=== PATIENT | female | born 1955 | race Caucasian/White ===

== ENCOUNTER 2016-10-24 09:39 | Emergency (ER) | payer OTHER ==
[~2016-10-24 09:39] MED LIST: ALUMSUS2 PO; ARTISOL OPB; ATOR-24 PO; BUPR-79 PO; CLC100 PO; CMD75 PO; ERGO1CAP41 PO; LORA-741 PO; LOSA1TAB38 PO; MAGN1TAB41 PO; METF750T PO; METH500T PO; NVLGI7030 SC; ONDA4TAB65 PO; OXYC5TAB PO; POLY335019 PO; PRLSR20 PO; SITA100T3 PO; TRAM-10 PO; TRAZ1TAB16 PO
[2016-10-24 09:46] VITALS: TEMP 37.2; Ht 160 cm
[2016-10-24] MEDS ORDERED: WARF5TAB7 PO (10:07)
[2016-10-24] MEDS ORDERED: WARF2.5T8 PO (10:07)
[2016-10-24] MEDS ORDERED: OXYC-57 PO (10:07)
[2016-10-24] MEDS ORDERED: BUPR-83 PO (10:08)
[2016-10-24] MEDS ORDERED: OXYCODONE HCL IR 5 MG TAB (IMMEDIATE RELEASE) PO STA (10:18)
--- NOTE | 2016-10-24 11:12 | DIAGNOSTIC IMAGING REPORT ---
RIGHT FEMUR 2 VIEWS ROUTINE, RIGHT KNEE 1 OR 2 VIEWS ROUTINE, RIGHT TIBIA/FIBULA 2 VIEWS ROUTINE CLINICAL HISTORY: RIGHT, FALL, right lower extremity pain. COMPARISON STUDY: Right femur, right knee, right tib-fib 01/11/2014. FINDINGS: There is a right total hip arthroplasty. The hardware appears intact. The bones are osteopenic. No acute fracture or dislocation. Old, healed fracture within the distal shaft of the right femur. Small knee effusion. This appears to represent a lipohemarthrosis on the right tib-fib lateral view. Vascular calcifications. There are also old, healed fractures within the proximal tibia and proximal fibula. There are cortical plates and screws transfixing the proximal tibial fracture. The hardware appears intact. Plantar and posterior calcaneal spurs. The distal fibula and tibia appear intact. IMPRESSION: 1. There appears to be a small lipohemarthrosis within the right knee. This raises the possibility of an occult right knee fracture. However, no acute fractures are clearly identified. Right knee CT should be considered for further evaluation 2. Old posttraumatic and postoperative changes as described above. Electronically signed by: Manuel Ling M.D. 10/24/2016 11:11 AM Dictated Date/Time: 10/24/2016 11:04 AM
[2016-10-24] MEDS ORDERED: MoRPHine SULFATE 10 MG/ML CARP/VIAL IM STA (12:08)
[2016-10-24] MEDS ORDERED: ONDANSETRON 4MG OD TAB PO ONE (12:15)
--- NOTE | 2016-10-24 12:48 | DIAGNOSTIC IMAGING REPORT ---
RIGHT KNEE CT CT DOSE: 321.31 mGy.cm HISTORY: Right knee pain. Fall. TECHNIQUE: Multiaxial CT images of the right knee were performed and reformatted in the sagittal and coronal plane without the use of contrast. COMPARISON: Right knee 10/24/2016. FINDINGS: There is confirmation of the small lipohemarthrosis within the knee. However, there is no acute fracture or dislocation identified. Old, healed distal femur, proximal tibia, and proximal fibular fractures. There are cortical plates and screws within the proximal tibia. The hardware appears intact. IMPRESSION: Small lipohemarthrosis within the right knee. This is consistent with an occult fracture. No definite fracture identified at this time. Electronically signed by: Manuel Ling M.D. 10/24/2016 12:47 PM Dictated Date/Time: 10/24/2016 12:39 PM
--- NOTE | 2016-10-24 13:18 | EMERGENCY ROOM VISIT NOTE ---
ED Visit Note First contact with patient: 10:04 I have personally seen and evaluated the patient with the PA. I agree with the diagnosis and management decisions and have been personally involved in the case. Please see Maria Guadalupe Lyon PA-C's notes for further details of the history , physical and visit.
[2016-10-24] MEDS ORDERED: OXYC1TAB3 PO (14:02)
--- NOTE | 2016-10-24 14:07 | EMERGENCY ROOM VISIT NOTE ---
ED Visit Note First contact with patient: 10:04 CHIEF COMPLAINT: Right leg injury this morning HISTORY OF PRESENT ILLNESS: Patient is a 61-year-old white female who presents to emergency department for evaluation of right leg pain, focused around the right knee. She reports an extensive history of surgeries on this leg including right total hip arthroplasty and ORIF of a right tibial plateau fracture. She does also have a history of DVT and is chronically anticoagulated with Coumadin. Patient states that she slipped on ice around 6: 00 this morning, roughly 4 hours ago. She states the right leg twisted and she landed on it awkwardly. She cannot completely describe the mechanism of injury. She does report some chronic decreased range of motion in the right knee due to her surgery. She does also report some neuropathy in the right lower leg due to the surgical procedures. She did not note a lot of discomfort initially, was able to walk and bear weight on the right leg, and actually drove herself to work. When trying to get out of the vehicle at work, she noted increasing pain. She complains of pain in the medial and posterior aspect of the right knee. She rates her discomfort an 8/10. She did not take any medication for discomfort. She denies any other injuries related to the fall. REVIEW OF SYSTEMS: Review of systems as per HPI. All other systems reviewed were negative. At least 6 systems reviewed. PMH: Electronic medical records are reviewed and summarized as above/below. See Problem List. SOCIAL HISTORY: Patient lives at home. Employed. Nonsmoker. PHYSICAL EXAM: Vital Signs: Reviewed Nurse's notes. MENTAL STATUS: Pleasant, well-appearing 61-year-old white female who is awake and alert and in no acute distress. HEART: Regular rate and rhythm. LUNGS: Clear to auscultation. MUSCULOSKELETAL: Examination of the right lower extremity notes multiple well- healed surgical scars. There is no obvious deformity. She has slight swelling noted at the knee and a mild to moderate knee joint effusion. She does not have any tenderness to palpation over the right greater trochanter or in the right groin. She has minimal discomfort in the distal third of the femoral shaft. She does not have any pain with log roll or internal and external rotation of the right hip. She has tenderness to palpation over the medial joint line, has a diminished range of motion, prefers to rest partially flexed. She does not have any gross ligamentous instability. Calf is soft and nontender. She has palpation over the proximal tibial spine. No pain over the medial or the lateral malleolus. Distal pulses are easily palpable. Slight diminished sensation to light touch grossly over the entire right lower leg. EMERGENCY DEPARTMENT COURSE: Patient was seen and evaluated as above. She was initially medicated with oxycodone 10 mg orally but this gave her little relief. She was given Zofran 4 mg ODT and morphine 8 mg IM. X-rays of the right femur, right tib-fib and right knee were obtained. Findings are noted below. Due to be hemarthrosis noted on the knee x-ray, CT scan was obtained again, hemarthrosis was noted, no obvious displaced fracture, but concern for occult fracture was again noted. The patient was wrapped with an vamsi wrap, placed in a knee immobilizer and instructed on a nonweight bearing gait using a walker. Patient requested [facility] and I did discuss the patient with them via telephone. They were able to review the x-rays in their office, and agreed with outpatient follow-up. The patient was given oxycodone for pain. She does have tramadol at home, but has not used this in some time. She was advised not to take the tramadol while using the oxycodone. Differential diagnoses entertained included fracture, dislocation, hardware compromise including fracture or loosening, periprosthetic fracture, among others. Patient was reviewed with attending physician. RIGHT FEMUR 2 VIEWS ROUTINE, RIGHT KNEE 1 OR 2 VIEWS ROUTINE, RIGHT TIBIA/FIBULA 2 VIEWS ROUTINE CLINICAL HISTORY: RIGHT, FALL, right lower extremity pain. COMPARISON STUDY: Right femur, right knee, right tib-fib 01/11/2014. FINDINGS: There is a right total hip arthroplasty. The hardware appears intact. The bones are osteopenic. No acute fracture or dislocation. Old, healed fracture within the distal shaft of the right femur. Small knee effusion. This appears to represent a lipohemarthrosis on the right tib-fib lateral view. Vascular calcifications. There are also old, healed fractures within the proximal tibia and proximal fibula. There are cortical plates and screws transfixing the proximal tibial fracture. The hardware appears intact. Plantar and posterior calcaneal spurs. The distal fibula and tibia appear intact. IMPRESSION: 1. There appears to be a small lipohemarthrosis within the right knee. This raises the possibility of an occult right knee fracture. However, no acute fractures are clearly identified. Right knee CT should be considered for further evaluation 2. Old posttraumatic and postoperative changes as described above. Problem List Medical Problems: (1) Anxiety Status: Chronic (2) Bilateral pulmonary embolism Status: Resolved (3) Depression Status: Chronic (4) Diabetes Status: Chronic (5) Hyperlipidemia Status: Chronic (6) Hypertension Status: Chronic (7) Ovarian cancer Status: Chronic (8) UTI (urinary tract infection) Status: Chronic Surgical Problems: (1) H/O total hip arthroplasty Status: Resolved (2) History of appendectomy Status: Resolved (3) History of cholecystectomy Status: Resolved (4) History of hysterectomy with oophorectomy Status: Resolved (5) Left femur ORIF Status: Resolved Current/Historical Medications Scheduled Atorvastatin (Lipitor), 40 MG PO DAILY Bupropion (Wellbutrin), 100 MG PO BID Ergocalciferol (Vitamin D 64414 Unit), 1 CAP PO WK Insulin Aspart 70/30 (Novolog Mix 70/30), 50 UNITS SC QAM Insulin Aspart 70/30 (Novolog Mix 70/30), 40 UNITS SC QPM Losartan Potassium (Cozaar), 100 MG PO DAILY Magnesium Oxide (Magnesium), 400 MG PO DAILY Metformin Hcl (Glucophage Er), 750 MG PO DAILY Omeprazole (Prilosec), 20 MG PO DAILY Trazodone Hcl (Desyrel), 150 MG PO HS Warfarin Sod (Jantoven), 2.5 MG PO 3XWK Warfarin Sod (Jantoven), 5 MG PO 4XWK Scheduled PRN Aluminum/Magnesium/Simeth (Maalox Max Susp), 15 ML PO Q4H PRN for Indigestion Artificial Tear Solution (Tears Naturale), 1 DROP OPB Q2H PRN for EYE DRYNESS Docusate Sodium (Docusate Sodium), 100 MG PO BID PRN for Constipation Lorazepam (Ativan), 0.5 MG PO TID PRN for Anxiety/Agitation Methocarbamol (Robaxin), 500 MG PO TID PRN for Muscle Spasms Ondansetron Hcl (Zofran), 4 MG PO Q6H PRN for Nausea Oxycodone Immediate Rel Tab (Roxicodone Ir), 1-2 TAB PO Q4H PRN for Severe Pain Oxycodone/Acetaminophen 5MG/325MG (Percocet 5MG/325MG), 1 TABLET PO Q4H PRN for Pain Polyethylene Glycol 3350 (Miralax), 17 GM PO DAILY PRN for Constipation Tramadol (Ultram), 50 MG PO Q6H PRN for Pain Allergies Coded Allergies: Clarithromycin (Verified Allergy, Intermediate, GI SYMPTOMS, 10/24/16) Iodinated Diagnostic Agents (Unverified Adverse Reaction, Unknown, CONTRAST-"COULDN'T FUNCTION", 10/24/16) Vital Signs Date Time Temp Pulse Resp B/P Pulse Ox O2 Delivery O2 Flow Rate FiO2 10/24/16 14:17 108 20 137/79 92 10/24/16 13:43 108 20 150/85 92 10/24/16 11:38 102 20 149/75 95 Room Air 10/24/16 09:46 37.2 102 20 171/91 95 Room Air Medications Administered Medications (Trade) Dose Ordered Sig/Michael Route Start Time Stop Time Status Last Admin Dose Admin Oxycodone HCl (Roxicodone Immediate Rel Tab) 10 mg NOW STAT PO 10/24/16 10:18 10/24/16 10:21 DC 10/24/16 10:33 10 MG Morphine Sulfate (MoRPHine SULFATE INJ) 8 mg NOW STAT IM 10/24/16 12:08 10/24/16 12:09 DC 10/24/16 12:53 8 MG Ondansetron HCl (Zofran Odt) 4 mg ONE ONCE PO 10/24/16 12:15 10/24/16 12:16 DC 10/24/16 12:40 4 MG Departure Information Impression Primary Impression: Effusion of right knee joint Additional Impression: Fall Prescriptions Oxycodone Immediate Rel Tab (ROXICODONE IR) 5 Mg Tab 1-2 TAB PO Q4H Y for Severe Pain, #20 TAB For Initial Treatment Prov: Anai Lyon PA 10/24/16 Referrals Shira Ray D.O. (PCP) Jose Roberto Lagos M.D. Patient Instructions My [facility] Additional Instructions DO NOT drive, drink alcohol, operate machinery, or perform dangerous activities today. You were given medications in the ER that can affect your ability to safely function or operate a vehicle. Oxycodone (OxyIR) 5mg: Take 1-2 pills every four hours for breakthrough pain. Avoid alcohol, operating machinery or dangerous equipment, working on ladders or roofs, DRIVING, or situations where being under the influence may be dangerous. It is recommended to use an kpud-gon-jigurhm stool softener such as Colace, 100mg twice daily while taking this medication to avoid constipation. Ibuprofen(Motrin, Advil) may be used for fever or pain. Use 600mg every six hours as needed. Take with food. Avoid using more than 2400mg in a 24 hour period. Do not use 2400mg per day for more than three consecutive days without physician direction. Prolonged inappropriate use can lead to stomach upset or ulcers. This medication can be taken if you need to drive, work, or perform activities which may be dangerous when taking narcotic pain medication. (AND/OR) Acetaminophen(Tylenol) may be used for fever or pain. Use 1000mg every six hours as needed. Avoid using more than 3000mg in a 24 hour period. This medication can be taken if you need to drive, work, or perform activities which may be dangerous when taking narcotic pain medication. Ice compresses for 20 minutes at a time four times daily for 2-3 days. Use the knee immobilizer and walker as instructed with no weight on the right lower extremity. Rest and elevate your injury. Continue current medications. Return to the ER immediately for any numbness, tingling, severe pain, extreme swelling in the extremity or as needed. Call [facility] this afternoon to arrange follow up for your injury on Thursday. Problem Qualifiers Additional Impression: Fall Encounter type: initial encounter Qualified Codes: W19.XXXA - Unspecified fall, initial encounter
[2016-10-24 14:17] VITALS: BP 137/79; PULSE 108; O2SAT 92
[2017-04-30] MEDS ORDERED: PANT40TA PO (13:20)
[2017-04-30] MEDS ORDERED: PLV75 PO (13:20)
[2017-04-30] MEDS ORDERED: LPR25 PO (13:20)
== END 2016-10-24 14:20 | disposition home or self-care (01) ==
LOC: C.EDB 09:42 → C.EDC 14:20
DX: M25.461 Effusion, right knee (principal); W00.0XXA Fall on same level due to ice and snow, initial encounter; Z96.641 Presence of right artificial hip joint; F41.9 Anxiety disorder, unspecified; F32.9 Major depressive disorder, single episode, unspecified; E11.9 Type 2 diabetes mellitus without complications; E78.5 Hyperlipidemia, unspecified; I10 Essential (primary) hypertension; Z85.43 Personal history of malignant neoplasm of ovary; Z87.440 Personal history of urinary (tract) infections; Z86.718 Personal history of other venous thrombosis and embolism; Z79.4 Long term (current) use of insulin; Z79.01 Long term (current) use of anticoagulants; Z79.899 Other long term (current) drug therapy

== ENCOUNTER → 2017-02-26 | Outpatient (CLI) | payer OTHER ==
[~2017-02-26] MED LIST changes: +AMINTAB13 PO; +ASPI81TA28 PO; +BUPR-83 PO; +CLOP1TAB5 PO; -CMD75 PO; +CYAN500T SL; +FLUT0.15 NAE; +GLYB5TAB8 PO; +IMDSR30 PO; +ISOS30TA3 PO; +LPR25 PO; +METF1TAB85 PO; +METO25TA56 PO; +OXYC-57 PO; +OXYC1TAB3 PO; -OXYC5TAB PO; +PANT40TA PO; +PLV75 PO; +PSYL43PO PO; +SENN-65 PO; -SITA100T3 PO; +WARF2.5T8 PO; +WARF5TAB7 PO
--- NOTE | 2017-02-26 13:41 | DIAGNOSTIC IMAGING REPORT ---
RIGHT VENOUS DOPP LOWER EXT UNILAT CLINICAL HISTORY: 61 years-old Female with acute right leg pain and swelling. History of right deep venous thrombosis 11/13/2015. COMPARISON: Doppler 11/13/2015 TECHNIQUE: Multiple real-time sonographic images of the deep venous structures of the right lower extremity were obtained assessing garibay scale, color Doppler flow and spectral waveform appearance. FINDINGS: RIGHT LOWER EXTREMITY: The common femoral vein is completely compressible. There is some echogenic intraluminal material which is presumed fibrin stranding within the femoral and popliteal veins which appears to be nonocclusive. Spontaneous and phasic color and spectral flow noted within these vessels. Echogenic thrombus within the posterior tibial, peroneal and anterior tibial veins also noted which appears to be partially occlusive. IMPRESSION: 1. Chronic changes of fibrin stranding within the femoral and popliteal veins. 2. Partially occlusive also likely chronic thrombus involves the calf veins. The above report was generated using voice recognition software. It may contain grammatical, syntax or spelling errors. Electronically signed by: Barry Florez M.D. 02/26/2017 1:40 PM Dictated Date/Time: 02/26/2017 1:33 PM
== END | disposition home or self-care (01) ==
LOC: C.ULTR 13:05
PROVIDERS: ATTEND Physician Assistant Surgical
DX: M79.89 Other specified soft tissue disorders (principal); M79.661 Pain in right lower leg

== ENCOUNTER 2017-04-29 06:36 | Observation (INO) | payer OTHER ==
[2017-04-29] VITALS (11 sets, daily range): BP systolic 131–168; BP diastolic 76–97; PULSE 70–79; TEMP 36.6–37.1; O2SAT 90–96; BMI 32.0; BMI 33.6
[~2017-04-29] VITALS: Ht 160 cm; Wt 84.1 kg
[~2017-04-29 06:36] MED LIST changes: -AMINTAB13 PO; -ASPI81TA28 PO; -BUPR-79 PO; -CLOP1TAB5 PO; -CYAN500T SL; -FLUT0.15 NAE; -GLYB5TAB8 PO; -IMDSR30 PO; -ISOS30TA3 PO; -LPR25 PO; -METF1TAB85 PO; -METO25TA56 PO; -PANT40TA PO; -PLV75 PO; -PSYL43PO PO; -SENN-65 PO
[2017-04-29] MEDS ORDERED: ASPI81TA28 PO (07:32)
[2017-04-29] MEDS ORDERED: AMINTAB13 PO (07:34)
[2017-04-29] MEDS ORDERED: METF1TAB85 PO (07:36)
[2017-04-29] MEDS ORDERED: BUPR-79 PO (07:38)
[2017-04-29] MEDS ORDERED: PSYL43PO PO (07:39)
[2017-04-29] MEDS ORDERED: GLYB5TAB8 PO (07:48)
[2017-04-29] MEDS ORDERED: CYAN500T SL (07:49)
[2017-04-29] MEDS ORDERED: FLUT0.15 NAE (07:50)
[2017-04-29] MEDS ORDERED: SENN-65 PO (07:52)
[2017-04-29] MEDS ORDERED: HEPARIN SOD (PORCINE) 1000 UNIT/ML 10 ML VIAL ONE (08:20)
[2017-04-29] MEDS ORDERED: NiCARDipine HCL INJ 2.5 MG/ML 10 ML AMP ONE (08:20)
[2017-04-29] MEDS ORDERED: FENTANYL CITRATE INJ 50 MCG/1 ML 2 ML VIAL ONE (08:21)
[2017-04-29] MEDS ORDERED: MIDAZOLAM HCL 1 MG/ML 2ML VIAL ONE (08:21)
[2017-04-29] MEDS ORDERED: NITROGLYCERIN/D5W 100MCG/ML 20ML SYR ONE (08:21)
[2017-04-29] MEDS ORDERED: DiphenhydrAMINE HCL 50 MG/ML VIAL ONE (08:46)
[2017-04-29] MEDS ORDERED: RANITIDINE HCL 25 MG/ML INJ ONE (08:46)
--- NOTE | 2017-04-29 08:48 | History & Physical Bridge Note ---
H&P Re-Evaluation Bridge Note: I have examined the patient, reviewed the History & Physical and in the interval since the performance of the History & Physical I have noted the following changes of clinical significance: No changes noted. IMPRESSION: 1. 61-year-old female with exertional angina class 2-3 and abnormal dobutamine stress echo suggesting apical septal and apical ischemia. 2. H/o Bilateral pulmonary embolus and recurrent unproked DVT on chronic oral anticoagulation treatment. INR 1.7 today. 3. Hypertension 4. Dyslipidemia - controlled; tolerating atorvastatin 5. Longstanding type 2 diabetes 6. MTHFR mutation and elevated homocysteine Plan: Left heart catheterization with coronary angiography. Coumadin will be held the day prior to the procedure with plans for radial approach. She is a bare- metal stent candidate due to need for chronic anticoagulation.
--- NOTE | 2017-04-29 08:49 | Procedure Note ---
Pre-Mod Sedation Assessment General Date of Moderate Sedation: Apr 29, 2017. Vital Signs: Vital Signs Past 12 Hours Date Time Temp Pulse Resp B/P (MAP) Pulse Ox O2 Delivery O2 Flow Rate FiO2 04/29/17 07:20 36.6 75 16 157/91 94 Room Air Review Cardiovascular: regular rate, rhythm, no edema, no murmur Abdomen: normal bowel sounds, non tender Lungs: chest non-tender, lungs clear, normal breath sounds Pre-Sedation Airway Assessment Oral Cavity: WNL Short Thick Neck: No Hx of Sleep Apnea: Yes Smoking Status: Never Smoker Mallampati Classification: Class III ASA Classification: Class III Procedure Planning Contraindications-for Mod Sed: None Yes Notes The planned sedation has been discussed with the patient and consent obtained. I have identified the patient, determined the appropriateness of sedation and have assessed the patient immediately prior to the procedure. All medicine(s) and interventions are by my order.
--- NOTE | 2017-04-29 09:30 | Procedure Note ---
Post-Mod Sedation Assessment General Date of Moderate Sedation Apr 29, 2017. Vital Signs: Vital Signs Past 12 Hours Date Time Temp Pulse Resp B/P (MAP) Pulse Ox O2 Delivery O2 Flow Rate FiO2 04/29/17 07:20 36.6 75 16 157/91 94 Room Air Review - Discharge Criteria Vital Signs Stable: Yes Alert/Oriented/Conversant: Yes Returned to Baseline Mental St: N/A (remained in lab associate for PCI) Nausea Absent/Minimal: Yes Pain/Discomfort/Absent/Minimal: Yes Normal/Baseline Respirations: Yes Active Bleeding?: No Pt Received D/C Instructions: N/A Prescriptions Given: None Specific Proced. D/C Criteria Distal Pulses Present (Cardiac: Yes Groin site assessed-Card Cath: N/A Voided Prior To Discharge: N/A Discharged Patients Adult Escort/Transportation: N/A
[2017-04-29] MEDS ORDERED: EPTIFIBATIDE 0.75 MG/ML 75MG VIAL IV ONE (09:34)
[2017-04-29] MEDS ORDERED: EPTIFIBATIDE 2 MG/ML 10 ML VIAL IV ONE (09:34)
[2017-04-29] MEDS ORDERED: EPTIFIBATIDE INJ 75 MG PREMIXED IV SCH (09:34)
--- NOTE | 2017-04-29 09:46 | Cardiac Catheterization ---
Procedure Note Procedure Date Apr 29, 2017. Pre-Procedure Diagnosis Angina, Positive Stress Test AUC Score 8 Post-Procedure Diagnosis Severe CAD Procedure(s) Performed Coronary Angiography, Left Heart Cath Director Operating Dr. Ray Senior Sourcing Manager(s) Sxhetler RTS Estimated Blood Loss 8cc Medication(s) Fentanyl, Heparin, Nicardipine, Nitroglycerin, Versed, Lidocaine 1%, Diphenhydramine (Zantac 50mg also given prior to procedure) Summary of Findings 80% mid LAD Hemodynamics Rest Ao: 117/70/90 Final Ao: 160/78/114 LV: 141/5/17 Recommendations PCI without planned CABG Specimens None Radiation Exposure (mGy) 1356 Contrast (mls) 55 Anesthesia Moderate sedation. Start 0900. End 09. Sedation monitor Mehnaz Clemons RN Procedural Complication(s) None Disposition Patient remained in medical laboratory scientist for PCI ACC Data Cardiac Status Clinical evaluation leading to the procedure CAD Presntation: Unstable angina, Positive Stress Test Anginal Classification: CCS III Heart Failure: No Cardiogenic Shock w/in 24Hrs: No Cardiac Arrest w/in 24Hrs: No Imaging studies past 6 months: Yes Stress studies past 6 months: Yes Stress Echocardiogram: Yes - Positive, Risk/Extent of Ischemia (High) Coronary Anatomy Dominant: Right Left Main (% Stenosis): Mid (80%), Distal (10-20%), Normal D1 (% Stenosis): Proximal (60%), Mid (10%), Distal (20%, small caliber) Circumflex (% Stenosis): Proximal (10%) OM1 (% Stenosis): Proximal (30%), Mid (10-20%), Distal (10%) RCA (% Stenosis): Proximal (30%), Mid (30%), Distal (30%) R PDA (% Stenosis): Mid (60-70%, small caliber, poor target for intervention), Distal (diffuse 50%) R PL1 (% Stenosis): Normal R PL2 (% Stenosis): Normal Ramus (% Stenosis): Distal (10%), Proximal (60% small vessel) Diagnostic Status: Elective Closure Device Percutaneous Entry Location: Radial Closure Device: Radial Band Intraprocedure Events Significant Dissection: No Perforation: No
[2017-04-29] MEDS ORDERED: CLOPIDOGREL BISULFATE 300 MG TAB PO ONE (10:14)
--- NOTE | 2017-04-29 10:22 | Cardiac Catheterization ---
Procedure Note Procedure Date Apr 29, 2017. Pre-Procedure Diagnosis Angina, Positive Stress Test AUC Score 8 Post-Procedure Diagnosis Successful PCI Procedure(s) Performed Coronary Angiography, PTCA, Bare Metal Stent Keyboarding Clerk Dr. Victor Occasional Caregiver(s) Lavell HopperRTR Estimated Blood Loss 20 ml Medication(s) Clopidogrel (600 mg PO post PCI), Fentanyl, Heparin, Integrilin, Nicardipine ( Intra arterial and iontracoronary), Versed Summary of Findings Indications: Severe early mid LAD stenosis, unstable angina, positive stress test. The patient was referred by Dr. Michi Ray for intervention to her LAD stenosis. Catheterization site: 6 Fr [place] sheath right radial artery inserted at time of diagnostic procedure. Equipment: 6 Fr EBU 3.5 guide catheter, [place] guidewire, [employer] 2.5 X 14 mm BMS, [employer] 2.75 X 12 mm NC Trek. Protocol: Intravenous heparin and Integrilin were administered. A therapeutic activated clotting time was documented. The stent was deployed in a direct fashion to yearly mid LAD stenosis at a pressure of he he 10 atmospheres for duration of 45 seconds. A 2nd inflation was performed with the stent delivery balloon to a pressure of 14 atmospheres for duration of 15 seconds. One post stent balloon inflation was performed with the noncompliant balloon to a pressure of 18 atmospheres for duration of 25 seconds. Follow-up angiography was performed from orthogonal projections with guidewire in place and guidewire withdrawn. Hemostasis: Terumo TR band. Complications: None. Findings: Diagnostic angiography had revealed an 80% early mid LAD stenosis. Following stent deployment and post stent deployment noncompliant balloon inflation the residual stenosis at the stent site was 0-10%. There was a step- up and step-down prior to and distal to the stent respectively. No evidence of dissection, thrombus, perforation, or distal embolic event. PRADIP 3 flow throughout the LAD and its branches. The patient was hemodynamically and electrically stable throughout the procedure. At the completion of the procedure she had no cardiac, coronary, or vascular type complaints. Plan: The patient will be admitted for observation overnight. She was given a loading dose of oral clopidogrel 600 mg post PCI. She should remain on dual antiplatelet therapy for a minimum of 1 month. She should remain on aspirin therapy indefinitely. She will remain on statin and angiotensin receptor rui therapy. She was started on beta-rui therapy. Post PCI electrocardiogram and labs ordered. She will have outpatient cardiology follow- up in the [facility] cardiology clinic. Hemodynamics Rest Ao: 117/70/91 mm Hg Final Ao: 126/67/94 mm Hg LV: NA Recommendations PCI without planned CABG Specimens None Radiation Exposure (mGy) Total 3014 for both PCI and diagnostic cath Contrast (mls) Total of 125 ml Visipaque for both procedures Fluids (cc crystalloids) Total 150 ml for both procedures Drains None Anesthesia Moderate sedation with IV Versed,fentanyl. Start 0939. End 1010. Procedural Complication(s) None Disposition PCU ACC Data Cardiac Status Clinical evaluation leading to the procedure CAD Presntation: Unstable angina Anginal Classification: CCS III Heart Failure: No Cardiogenic Shock w/in 24Hrs: No Cardiac Arrest w/in 24Hrs: No Imaging studies past 6 months: Yes Stress studies past 6 months: Yes Standard Exercise Stress Test: No Stress Echocardiogram: Yes - Positive, Risk/Extent of Ischemia (High) Stress Testing w/SPECT MPI: No Cardiac CTA: No Coronary Anatomy Dominant: Right (Please see Dr Ray's cardiac catheterization report for complete diagnostic findings.) Left Ventricular Angiography EF (%): NA Diagnostic Physician's Name: Michi Ray, DO Status: Elective Closure Device Percutaneous Entry Location: Radial Closure Device: Radial Band Recommendations: PCI without planned CABG PCI Indication: Unstable Angina, + Stress Test Lesion Segment Name: Mid LAD Culprit Artery: Yes Stenosis Prior to Rx (%): 80 Chronic Total Occlusion: No IVUS: No FFR: No Pre-Procedure PRADIP Flow: 3 Previously Treated Lesion: No Lesion Complexity: Non-High/Non-C Lesion Length (mm): 11 Thrombus Present: No Bifurcation Lesion: No Guidewire Across Lesion: Yes Guidewire: Stenosis Post-Procedure (%): 0 Post-Procedure PRADIP Flow: 3 Device(s) Deployed: Yes Type of Device(s): [employer] Integrity 2.5 X 14 mm BMS. Post dilated with 2.75 X 12 mm NC balloon.
[2017-04-29] MEDS ORDERED: ATROPINE SULFATE 0.1 MG/ML 5ML SYR IV PRN (10:30)
[2017-04-29] MEDS ORDERED: ONDANSETRON INJ 2 MG/ML 2 ML VIAL IV PRN (10:30)
[2017-04-29] MEDS ORDERED: EPTIFIBATIDE BOLUS / DRIP IV ONE (10:30)
[2017-04-29] MEDS ORDERED: TRAMADOL HCL 50 MG TAB PO PRN (10:30)
[2017-04-29] MEDS ORDERED: LORAZEPAM 0.5 MG TAB PO PRN (10:30)
[2017-04-29] MEDS ORDERED: NITROGLYCERIN 0.4 MG SL PER TAB CHARGE SL PRN (10:30)
[2017-04-29] MEDS ORDERED: ACETAMINOPHEN 325 MG TAB PO PRN (10:30)
[2017-04-29] MEDS ORDERED: ALUMINUM/MAGNESIUM/SIMETH (MAALOX MAX) 30 ML UDC PO PRN (10:30)
[2017-04-29] MEDS ORDERED: DOCUSATE SODIUM/SENNA 50/8.6MG TAB PO PRN (10:30)
[2017-04-29] MEDS ORDERED: MAGNESIUM HYDROXIDE SUSP 30 ML UDC PO PRN (10:30)
[2017-04-29] MEDS ORDERED: OXYCODONE HCL IR 5 MG TAB (IMMEDIATE RELEASE) PO PRN (10:30)
[2017-04-29] MEDS ORDERED: MoRPHine SULFATE 2 MG/ML CARP IV PRN (10:30)
[2017-04-29] MEDS ORDERED: OXYCODONE/ACETAMINOPHEN 5-325 TAB PO PRN (10:30)
[2017-04-29] MEDS ORDERED: LORAZEPAM INJ 0.5 MG in SYRINGE 0.75 ML IV PRN (10:30)
[2017-04-29] MEDS ORDERED: METHOCARBAMOL 500 MG TAB PO PRN (10:30)
[2017-04-29] MEDS ORDERED: ONDANSETRON 4 MG TAB PO PRN (10:30)
--- NOTE | 2017-04-29 10:35 | Procedure Note ---
Post-Mod Sedation Assessment General Date of Moderate Sedation Apr 29, 2017. 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 D/C Criteria Distal Pulses Present (Cardiac: Yes Groin site assessed-Card Cath: N/A Voided Prior To Discharge: N/A Discharged Patients Adult Escort/Transportation: N/A
--- NOTE | 2017-04-29 11:58 | Critical Care Consultation ---
Critical Care Consultation Date of Consultation: Apr 29, 2017. Attending Physician: Michi Ray DO Reason for Consultation: Dear Dr. Ray , Dr. Victor: Thank you for your kind referral of Mrs. Garcia to ICU service. 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 the pt scheduled for PCI today , which went successfully with results noted per report. the pt underwent Mid LAD stenting with good patency and kept on Integrilin infusion and transferred to the ICU for further management. the procedure was done with moderate sedation and tolerated well. right radial approach. In the ICU, the pt denies chest pain, sob, heartburn, leg pain or leg edema. she denies dizziness, palpitation , cough or near syncope. appeared comfortable , still under the effect of sedation but able to follow commands appropriately. she did not have NV, no discomfort whatsoever. Past Medical/Surgical History DM on insulin 70/30 - 50/40 units am and pm daily. on metformin as well. no previous hx of CAD except this admission. hx of PE in 2016 with DVT in 2017 maintained on Coumadin at home. no hx of previous PCI. 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 Family History FHx: diabetes FHx: heart disease FHx: kidney stones FHx: ovarian cancer Hypertension Social History Smoking Status: Never Smoker Smokeless Tobacco Use: Yes Alcohol Use: none Drug Use: none Marital Status: single Occupation Status: disabled Allergies Coded Allergies: Clarithromycin (Verified Adverse Reaction, Intermediate, GI SYMPTOMS, 04/29) Iodinated Diagnostic Agents (Unverified Adverse Reaction, Unknown, CONTRAST-"COULDN'T FUNCTION", 10/24/16) Home Medications Scheduled Amino Acids (Amino Acids Complex), 1 TAB PO DAILY Aspirin (Aspirin Ec), 81 MG PO DAILY Atorvastatin (Lipitor), 40 MG PO DAILY Bupropion (Wellbutrin Sr), 150 MG PO BID Cyanocobalamin (Vitamin B-12), 500 MCG SL DAILY Ergocalciferol (Vitamin D 68677 Unit), 1 CAP PO WK Fluticasone Propionate (Nasal) (Flonase Allergy Relief), 2 SPRAY [place] DAILY Glyburide (Micronase), 5 MG PO DAILY Insulin Aspart 70/30 (Novolog Mix 70/30), 50 UNITS SC QAM Insulin Aspart 70/30 (Novolog Mix 70/30), 40 UNITS SC QPM Losartan Potassium (Cozaar), 100 MG PO DAILY Magnesium Oxide (Magnesium), 400 MG PO DAILY Metformin Hcl (Metformin Hcl Er), 500 MG PO BID Omeprazole (Prilosec), 20 MG PO DAILY Psyllium (Metamucil Free & Natural), 1 DOSE PO DIRECTED Trazodone Hcl (Desyrel), 150 MG PO HS Warfarin Sod (Jantoven), 5 MG PO DIRECTED Scheduled PRN Artificial Tear Solution (Tears Naturale), 1 DROP OPB Q2H PRN for EYE DRYNESS Lorazepam (Ativan), 0.5 MG PO TID PRN for Anxiety/Agitation Methocarbamol (Robaxin), 500 MG PO TID PRN for Muscle Spasms Ondansetron Hcl (Zofran), 4 MG PO Q6H PRN for Nausea Oxycodone Immediate Rel Tab (Roxicodone Ir), 1-2 TAB PO Q4H PRN for Severe Pain Oxycodone/Acetaminophen 5MG/325MG (Percocet 5MG/325MG), 1 TABLET PO Q4H PRN for Pain Polyethylene Glycol 3350 (Miralax), 17 GM PO DAILY PRN for Constipation Senna/Docusate Sod (Senokot S), 2-4 TAB PO DAILY PRN for Constipation Tramadol (Ultram), 50 MG PO Q6H PRN for Pain Current Inpatient Medications Current Inpatient Medications Medications (Trade) Dose Ordered Sig/Michael Route Start Time Stop Time Status Last Admin Dose Admin Sodium Chloride 1,000 ml @ 80 mls/hr [id number] IV 04/29/17 10:30 05/29/17 10:29 Atropine Sulfate (Atropine Sulfate 0.1MG/Ml Inj) 0.5 mg ONE PRN IV 04/29/17 10:30 05/29/17 10:29 Ondansetron HCl (Zofran Inj) 4 mg Q6H PRN IV 04/29/17 10:30 05/29/17 10:29 Clopidogrel Bisulfate (plAVix TAB) 75 mg QAM PO 04/30/17 09:00 05/30/17 08:59 Metoprolol Tartrate (Lopressor Tab) 25 mg Q12 PO 04/29/17 21:00 05/29/17 20:59 Acetaminophen (Tylenol Tab) 650 mg Q4H PRN PO 04/29/17 10:30 05/29/17 10:29 Lorazepam 0.5 mg/ Syringe 1 ml @ 1 mls/min Q6H PRN IV 04/29/17 10:30 05/29/17 10:29 Eptifibatide (Integrilin Bolus / Drip) 1 ea ONE ONCE IV 04/29/17 10:30 04/29/17 10:31 UNV Al Hydrox/Mg Hydrox/Simethicone (Maalox Max Susp) 15 ml Q4H PRN PO 04/29/17 10:30 05/29/17 10:29 Magnesium Hydroxide (Milk Of Magnesia Susp) 30 ml Q12H PRN PO 04/29/17 10:30 05/29/17 10:29 Nitroglycerin (Nitrostat Tab) 0.4 mg UD PRN SL 04/29/17 10:30 05/29/17 10:29 Morphine Sulfate (MoRPHine SULFATE INJ) 2 mg Q30M PRN IV 04/29/17 10:30 05/13/17 10:29 Aspirin (Ecotrin Tab) 81 mg DAILY PO 04/30/17 09:00 05/30/17 08:59 Atorvastatin Calcium (Lipitor Tab) 40 mg DAILY PO 04/30/17 09:00 05/30/17 08:59 Bupropion HCl (Wellbutrin-Sr Tab) 150 mg BID PO 04/29/17 21:00 05/29/17 20:59 Fluticasone Propionate (Flonase Nasal [place]) 2 sprays DAILY HOLLAND 04/30/17 09:00 05/30/17 08:59 Glyburide (MICRONase TAB) 5 mg DAILY PO 04/30/17 09:00 05/30/17 08:59 UNV Insulin Aspart Prota 70%/Aspart 30% (novoLOG MIX 70/ 30) 40 units QPM SC 04/29/17 21:00 05/29/17 20:59 UNV Insulin Aspart Prota 70%/Aspart 30% (novoLOG MIX 70/ 30) 50 units QAM SC 04/30/17 09:00 05/30/17 08:59 UNV Lorazepam (Ativan Tab) 0.5 mg TID PRN PO 04/29/17 10:30 05/29/17 10:29 Losartan Potassium (coZAAR TAB) 100 mg DAILY PO 04/30/17 09:00 05/30/17 08:59 Methocarbamol (Robaxin Tab) 500 mg TID PRN PO 04/29/17 10:30 05/29/17 10:29 Ondansetron HCl (Zofran Tab) 4 mg Q6H PRN PO 04/29/17 10:30 05/29/17 10:29 Oxycodone HCl (Roxicodone Immediate Rel Tab) 5 mg Q4H PRN PO 04/29/17 10:30 05/13/17 10:29 Oxycodone/ Acetaminophen (Percocet 5-325mg Tab) 1 tab Q4H PRN PO 04/29/17 10:30 05/13/17 10:29 Senna/Docusate Sodium (Senokot S Tab) 2 tab DAILY PRN PO 04/29/17 10:30 05/29/17 10:29 Tramadol HCl (Ultram Tab) 50 mg Q6H PRN PO 04/29/17 10:30 05/29/17 10:29 Trazodone HCl (Desyrel Tab) 150 mg HS PO 04/29/17 21:00 05/29/17 20:59 Warfarin Sodium (Coumadin Tab) 5 mg DAILY@1600 PO 04/29/17 16:00 05/29/17 15:59 Review of Systems Constitutional: No fever, No chills, No sweats, No weight loss, No weakness, No fatigue, No problem reported ENT: No hearing loss, No unusual epistaxis, No nasal symptoms, No sore throat, No tinnitus, No dental problems, No trouble swallowing, No problem reported Respiratory: No cough, No sputum, No wheezing, No shortness of breath, No dyspnea on exertion, No dyspnea at rest, No hemoptysis, No problem reported Cardiovascular: + chest pain, No orthopnea, No PND, No edema, No claudication, No palpitations, No problem reported Abdomen: No pain, No nausea, No vomiting, No diarrhea, No constipation, No GI bleeding, No problem reported Musculoskeletal: No joint pain, No muscle pain, No swelling, No calf pain, No problem reported Neurologic: No memory loss, No paralysis, No weakness, No numbness/tingling, No vertigo, No balance problems, No problem reported Hematologic / Lymphatic: + clotting problems, No abnormal bleeding/bruising, No swollen lymph nodes, No night sweats, No problem reported Integumentary: No rash, No itch, No new/changing skin lesions, No color change , No bleeding, No problem reported Allergic / Immunologic: No environmental allergies, No seasonal allergies, No pet sensitivities, No food allergies, No hives, No frequent infections, No poor healing, No prolonged convalescence, No problem reported Physical Exam Date Time Temp Pulse Resp B/P (MAP) Pulse Ox O2 Delivery O2 Flow Rate FiO2 04/29/17 11:18 37.1 79 21 149/81 90 Room Air 04/29/17 10:22 78 16 132/84 (100) 96 Room Air 04/29/17 10:07 84 16 130/78 (95) 96 Room Air 04/29/17 07:20 36.6 75 16 157/91 94 Room Air General Appearance: well-appearing, WD/WN, no apparent distress Eyes: PERRLA, no discharge, EOMI ENT: normal mouth exam, normal throat exam Neck: normal range of motion, supple, no thyromegaly Respiratory: breath sounds normal, clear to auscultation, clear to percussion Cardiovasular: regular rate/rhythm, normal S1S2, no M/G/R Abdomen: non tender, no rebound, no guarding Lower Extremities: no edema, no deformity, other Pulses: radial (R) (2+) Neuro: alert, oriented x 3, normal motor exam, normal sensation Psychiatric: normal affect Laboratory Results Last 24 Hours Test 04/29/17 07:20 04/29/17 09:24 04/29/17 09:44 04/29/17 11:23 Bedside Prothrombin Time INR 1.7 Kaolin Activated Coagulation Time 230 SECONDS 246 SECONDS Test 04/29/17 11:40 Diagnostic Results reviewed her chest ct personally from 2016 and the lower ext ct from 2017 , noted for bilateral PE's and filling defects in the lower ext, likely chronic. previous CXR on 02/26 showed no abnormality. Assessment & Plan 1- CAD , s/p PCI with mid LAD stent with < 10% stenosis . 2- Diabetes type II. 3- VTE with PE in 2016 and DVT in 2017. 4- Homocystine Gene dominance. 5- HTN. 6- HLP. Plan: 1- appreciate Dr. Ray and Dr. Victor noted and input. 2- continue post cath care, ASA, Plavix ( loaded), Integrilin, statin. 3- once Ok by cardiology she will need to go back on Coumadin given her Homocystine Gene mutation. 4- resume diet ( ADA 1800 kcal). 5- resume insulin 70/30 with 40 units sc bid instead. 6- right radial site looks clean , no induration or erythema, good capillary filling and pulse. 7- repeat labs. 8- am labs. discussed with the staff on rounds, CCT 45 min.
[2017-04-29 12:05] LABS: BASO % 0.3 %; BASO ABS # 0.01 K/uL (0-0.2); EOS % 0.3 %; HEMATOCRIT 36.7 % (37-47); IG% 1.2 %; LYMPH % 19.3 %; LYMPH ABS # 0.65 K/uL (1.2-3.4); MEAN CORPUSCULAR HEMOGLOBIN 29.3 pg (25-34); MEAN PLATELET VOLUME 9.4 fL (7.4-10.4); MONO % 2.4 %; NEUT % 76.5 %; PLATELET COUNT 199 K/uL (130-400); RED BLOOD COUNT 4.37 M/uL (4.2-5.4); WHITE BLOOD COUNT 3.37 K/uL (4.8-10.8)
[2017-04-29 12:11] LABS: COMPLETE YES; MEAN CORPUSCULAR HGB CONC 34.9 g/dl (32-36)
[2017-04-29 12:30] LABS: CREATININE 0.88 mg/dl (0.60-1.20)
[2017-04-29] MEDS ORDERED: DEXTROSE 50% 50 ML SYR IV PRN (12:30)
[2017-04-29] MEDS ORDERED: GLUCOSE 40% GEL 15 GM TUBE PO PRN (12:30)
[2017-04-29] MEDS ORDERED: GLUCOSE 10 TABS/TUBE PO PRN (12:30)
[2017-04-29] MEDS ORDERED: GLUCAGON FOR INJ 1 MG VIAL SQ PRN (12:30)
[2017-04-29] MEDS ORDERED: IV FLUIDS COMPLETED PRN (12:30)
[2017-04-29] MEDS ORDERED: PHARMACY GLYCEMIC MGMT CONSULT PRN (13:24)
[2017-04-29] MEDS: SODIUM CHLORIDE 0.9% 1000ML 1,000 ML IV SCH ×2 (13:25→18:15)
[2017-04-29] MEDS ORDERED: INSULIN ASPART 100 UNITS/ML 3 ML PEN SC STA (13:32)
[2017-04-29] MEDS ORDERED: LANTUS PER UNIT CHARGE SQ ONE (13:45)
[2017-04-29] MEDS ORDERED: INFLUENZA VIRUS QUAD VACCINE 0.5 ML SYR IM. ONE (14:00)
[2017-04-29] MEDS ORDERED: INFLUENZA ADMINISTRATION CHARGE ONE (14:00)
--- NOTE | 2017-04-29 14:27 | Pharmacy Progress Note ---
Glycemic Control Intl Consult Date of Service Apr 29, 2017. Scope Glycemic Pharmacist consulted by Dr Ray on 04/29/17 for glycemic control and to write orders per [facility] inpatient glycemic control protocol Objective Weight (Kilograms): 86.000 Laboratory Data (last 24hrs) Test 04/29/17 11:40 04/29/17 11:49 White Blood Count 3.37 K/uL Red Blood Count 4.37 M/uL Hemoglobin 12.8 g/dL Hematocrit 36.7 % Mean Corpuscular Volume 84.0 fL Mean Corpuscular Hemoglobin 29.3 pg Mean Corpuscular Hemoglobin Concent 34.9 g/dl Platelet Count 199 K/uL Mean Platelet Volume 9.4 fL Neutrophils (%) (Auto) 76.5 % Lymphocytes (%) (Auto) 19.3 % Monocytes (%) (Auto) 2.4 % Eosinophils (%) (Auto) 0.3 % Basophils (%) (Auto) 0.3 % Neutrophils # (Auto) 2.58 K/uL Lymphocytes # (Auto) 0.65 K/uL Monocytes # (Auto) 0.08 K/uL Eosinophils # (Auto) 0.01 K/uL Basophils # (Auto) 0.01 K/uL Creatinine 0.88 mg/dl Recent Pertinent Medications Outpatient Anti-diabetic Regimen: * Novolog 70/30 50 units Q AM + 40 units Q PM * Glyburide 5mg PO daily * A1c = ? % Risk Factors for Insulin Resistance: * Recent Surgery: cardiac cath procedure w/ stenting of LAD; POD #0 * Diet: ordered T2DM / AHA diet; she was given a lunch tray today Assessment & Plan ASSESSMENT: * Type 2 diabetic admitted today for elective cardiac cath procedure, stenting of LAD * We do not have a recent A1c to determine her level of glycemic control w/ her outpatient regimen. Will check one with AM labs tomorrow. * She is currently ordered her home doses of Novolog 70/30 and Glyburide. She had skipped her AM dose of 70/30 insulin today. Post-procedure BSGs in the upper 200's. Given inability to easily titrate 70/30 insulin doses in the acute setting and heightened hypoglycemia risks while hospitalized, will convert her to a basal/bolus regimen consisting of Lantus + Novolog today with plans to begin transitioning her back to 70/30 tomorrow. * Will base insulin doses upon an anticipated daily need of ~90 units. Will hold metformin until 48 hrs s/p cath procedure; restart glyburide tomorrow if renal fxn remains unchanged and patient's discharge likely in the near future. PLAN FOR INPATIENT GLYCEMIC CONTROL: * Lantus 45 units SQ x 1 now * Novolog SQ ACHS with the following parameters: * Correction factor 17 mg/dl/unit * Carb ratio 1 unit per 6 grams CHO consumed * Goal range Low 120 mg/dL - High 150 mg/dL * Resume 70/30 insulin tomorrow AM if clinical condition unchanged, tolerating diet and discharge anticipated in near future. * Please note that the plan above was derived based on current level of insulin resistance and hospital stress. These recommendations are appropriate for inpatient admission only. Plan of care upon discharge will need to be reassessed to avoid potential outpatient hypo/hyperglycemia. Thank you.
[2017-04-29] MEDS: WARFARIN SOD 5 MG TAB PO SCH (15:35)
[2017-04-29] MEDS ORDERED: Integrelin infusion --> STOP ORDER ONE (16:00)
[2017-04-29] MEDS ORDERED: INSULIN 70% ASPART PROTAMINE/30% ASPART SC SCH (16:30)
[2017-04-29] MEDS: INSULIN ASPART 100 UNITS/ML 3 ML PEN SC SCH ×2 (17:19→20:56)
[2017-04-29] MEDS: BuPROPion SR 150 MG TABCR PO SCH (20:43)
[2017-04-29] MEDS: TRAZODONE HCL 50 MG TAB PO SCH (20:44)
[2017-04-29] MEDS: METOPROLOL TARTRATE 25 MG TAB PO SCH (20:44)
[2017-04-29] MEDS ORDERED: PANTOprazole SOD 40 MG TAB PO STA (21:29)
[2017-04-30] VITALS (8 sets, daily range): BP systolic 92–139; BP diastolic 57–78; PULSE 62–69; TEMP 36.9–37.1; O2SAT 91–95; Ht 160 cm; Wt 84.1 kg
[2017-04-30 04:03] LABS: BASO % 0.2 %; BASO ABS # 0.01 K/uL (0-0.2); COMPLETE YES; EOS % 0.4 %; HEMATOCRIT 32.3 % (37-47); IG% 0.4 %; LYMPH % 28.7 %; MEAN CORPUSCULAR HEMOGLOBIN 28.9 pg (25-34); MEAN CORPUSCULAR HGB CONC 34.1 g/dl (32-36); MEAN PLATELET VOLUME 9.1 fL (7.4-10.4); MONO % 10.1 %; NEUT % 60.2 %; PLATELET COUNT 182 K/uL (130-400); WHITE BLOOD COUNT 4.87 K/uL (4.8-10.8)
[2017-04-30 04:28] LABS: BUN/CREATININE RATIO 23.1 (10-20); CALCIUM 8.5 mg/dl (8.5-10.1); CREATININE 0.93 mg/dl (0.60-1.20); POTASSIUM 3.9 mmol/L (3.5-5.1)
[2017-04-30 04:53] LABS: ESTIMATED AVERAGE GLUCOSE 194 mg/dl; HA1C FLAG Normal (Normal)
[2017-04-30] MEDS: SODIUM CHLORIDE 0.9% 1000ML 1,000 ML IV SCH (05:51)
[2017-04-30] MEDS: ASPIRIN 81 MG ECTAB PO SCH (07:25)
[2017-04-30] MEDS: ATORVASTATIN 40 MG TAB PO SCH (07:25)
[2017-04-30] MEDS: CLOPIDOGREL BISULFATE 75 MG TAB PO SCH (07:25)
[2017-04-30] MEDS: METOPROLOL TARTRATE 25 MG TAB PO SCH ×2 (07:25→21:27)
[2017-04-30] MEDS: FLUTICASONE PROPIONATE NA SPR 16 GM BTL NAE SCH (07:25)
[2017-04-30] MEDS: LOSARTAN POTASSIUM 50 MG TAB PO SCH (07:25)
[2017-04-30] MEDS: BuPROPion SR 150 MG TABCR PO SCH ×2 (07:25→21:26)
[2017-04-30] MEDS: INSULIN ASPART 100 UNITS/ML 3 ML PEN SC SCH ×4 (07:27→21:00)
--- NOTE | 2017-04-30 08:55 | Pharmacy Progress Note ---
Glycemic Control Progress Note Date of Service Apr 30, 2017. Scope Glycemic Pharmacist consulted for glycemic control to write orders per [facility] inpatient glycemic control protocol. Objective Accuchecks BSG (last 24hrs): Test 04/30/17 03:32 04/30/17 05:53 Random Glucose 185 mg/dl (70-99) Bedside Glucose 198 mg/dl (70-90) HbA1c: Test 04/30/17 03:32 Hemoglobin A1c 8.4 % (4.5-5.6) H Recent Pertinent Medications Outpatient Anti-diabetic Regimen: * Novolog 70/30 50 units Q AM + 40 units Q PM * Glyburide 5mg PO daily * Metformin ER 500mg PO BID * A1c = 8.4 % 04/30/17 Risk Factors for Insulin Resistance: * Recent Surgery: cardiac cath procedure w/ stenting of LAD; POD #1 * Diet: ordered T2DM / AHA diet and tolerating well Assessment & Plan ASSESSMENT: 04/29/17 * Type 2 diabetic admitted today for elective cardiac cath procedure, stenting of LAD * We do not have a recent A1c to determine her level of glycemic control w/ her outpatient regimen. Will check one with AM labs tomorrow. * She is currently ordered her home doses of Novolog 70/30 and Glyburide. She had skipped her AM dose of 70/30 insulin today. Post-procedure BSGs in the upper 200's. Given inability to easily titrate 70/30 insulin doses in the acute setting and heightened hypoglycemia risks while hospitalized, will convert her to a basal/bolus regimen consisting of Lantus + Novolog today with plans to begin transitioning her back to 70/30 tomorrow. * Will base insulin doses upon an anticipated daily need of ~90 units. Will hold metformin until 48 hrs s/p cath procedure; restart glyburide tomorrow if renal fxn remains unchanged and patient's discharge likely in the near future 04/30/17 * BSGs did not begin to trend down until HS yesterday. Today her BSGs are improving however I anticipate her control to decline today without aggressive management. * Will resume her home dose of 70/30 insulin as she is tolerating a diet and her A1c reveals poor control with outpt regimen * Will remove carb ratio from Novolog order as 70/30 provides prandial insulin * Continue correctional insulin w/ Novolog ACHS, however give a little higher dose * Renal fxn stable and adequate to resume home glyburide PLAN FOR INPATIENT GLYCEMIC CONTROL: * Resume home 70/30 regimen: 50 units w/ breakfast + 40 units w/ dinner * Change correction factor to 15 mg/dl/unit * Remove carb ratio * Change goal range to Low 110 mg/dL - High 140 mg/dL * Resume home glyburide 5 mg daily * Please note that the plan above was derived based on current level of insulin resistance and hospital stress. These recommendations are appropriate for inpatient admission only. Plan of care upon discharge will need to be reassessed to avoid potential outpatient hypo/hyperglycemia. Thank you.
[2017-04-30] MEDS ORDERED: ASPIRIN 81 MG ECTAB PO SCH (09:00)
[2017-04-30] MEDS: INSULIN 70% ASPART PROTAMINE/30% ASPART SC SCH (09:08)
[2017-04-30] MEDS ORDERED: ISOSORBIDE MONONITRATE 30 MG TABCR PO ONE (10:58)
[2017-04-30] MEDS ORDERED: NURSING VERBAL MED ORDER ONE ×2 (11:30→15:15)
--- NOTE | 2017-04-30 11:52 | Cardiology Follow-Up ---
Subjective General Date of Service: Apr 30, 2017. Pt evaluation today including: conversation w/ patient, physical exam, chart review, lab review, review of studies, conversation w/ individual pension consultant, review of inpatient medication list History of Present Illness The patient is a 61 year old female seen in follow up. Reports episode of chest discomfort last evening at approximately 8pm. No ischemic ECG changes at that time or today. Chest pressure has not recurred. Reports a mild chest ache this AM. States this is her 'normal' chest discomfort which she experiences daily. No associated SOB. Pain is not affected by activity or position. No dysrhythmia on telemetry. Tolerated AM meal. Offers no other complaint. Allergies Coded Allergies: Clarithromycin (Verified Adverse Reaction, Intermediate, GI SYMPTOMS, 04/29) Iodinated Diagnostic Agents (Unverified Adverse Reaction, Unknown, CONTRAST-"COULDN'T FUNCTION", 10/24/16) Social History Smoking Status: Never Smoker Hx Tobacco Use In Past Year?: No Hx Alcohol Use - Type And Amou: No Hx Substance Use - Type And Am: No Problem List Medical Problems: (1) Effusion of right knee joint Status: Acute (2) Fall Status: Acute (3) Right leg DVT Status: Acute Review of Systems Respiratory: No cough, No sputum, No wheezing, No shortness of breath, No dyspnea on exertion, No dyspnea at rest, No hemoptysis Cardiac: + chest pain, No orthopnea, No PND, No edema, No claudication, No palpitations Physical Exam Vital Signs Last Vital Signs Documentation Date Time Temp Pulse Resp B/P (MAP) Pulse Ox O2 Delivery O2 Flow Rate FiO2 04/30/17 08:00 Room Air 04/30/17 08:00 67 18 130/77 (94) 95 04/30/17 04:00 37.1 04/29/17 13:06 2.0 Physical Exam Constitutional: General Apperance: well-nourished, overweight Level of Distress: NAD Ambulation: ambulating normally Head: normocephalic, atraumatic ENMT: normal ENT inspection Lungs: Auscultation: breath sounds normal, no wheezing, no rales/crackles, no rhonchi Cardiovascular: Heart Auscultation: RRR, normal S1, normal S2, no murmurs, no rubs Peripheral Pulses: Radial Pulse: normal on the left, normal on the right Abdomen: Bowel Sounds: normal Inspection & Palpation: soft, non-distended, no tenderness, guarding & rebound Extremities: no cyanosis, no edema, no clubbing, no ulcers Neurologic: Gait & Station: pertinent finding (No focal motor deficit) Cranial Nerves: grossly intact Assessment and Plan Assessment and Plan Imp: 1. Abnormal dobutamine stress echo s/p cardiac catheterization with BMS to LAD. Residual moderate and small vessel disease noted. Patient with episode of transient chest pressure last night without recurrence. Atypical mild chest ache noted this AM without ischemic ECG changes or associated symptoms. 2. H/o PE and unprovoked recurrent DVT - coumadin restarted - INR therapeutic 3. Dyslipidemia 4. DM-2 5. MTHFR mutation with elevated homocysteine Plan/Recommendations: Add imdur for treatment of small vessel CAD. Discussed importance of continuing dual antiplatelet therapy for minimum of 3 months. Other cardiovascular medications will be continued as previously ordered. Repeat troponin. Plan for discharge early afternoon. Laboratory Results Last 24 Hours Test 04/29/17 11:40 04/29/17 11:49 04/29/17 22:00 04/30/17 03:32 White Blood Count 3.37 K/uL 4.87 K/uL Red Blood Count 4.37 M/uL 3.80 M/uL Hemoglobin 12.8 g/dL 11.0 g/dL Hematocrit 36.7 % 32.3 % Mean Corpuscular Volume 84.0 fL 85.0 fL Mean Corpuscular Hemoglobin 29.3 pg 28.9 pg Mean Corpuscular Hemoglobin Concent 34.9 g/dl 34.1 g/dl Platelet Count 199 K/uL 182 K/uL Mean Platelet Volume 9.4 fL 9.1 fL Neutrophils (%) (Auto) 76.5 % 60.2 % Lymphocytes (%) (Auto) 19.3 % 28.7 % Monocytes (%) (Auto) 2.4 % 10.1 % Eosinophils (%) (Auto) 0.3 % 0.4 % Basophils (%) (Auto) 0.3 % 0.2 % Neutrophils # (Auto) 2.58 K/uL 2.93 K/uL Lymphocytes # (Auto) 0.65 K/uL 1.40 K/uL Monocytes # (Auto) 0.08 K/uL 0.49 K/uL Eosinophils # (Auto) 0.01 K/uL 0.02 K/uL Basophils # (Auto) 0.01 K/uL 0.01 K/uL RDW Standard Deviation 41.4 fL 42.5 fL RDW Coefficient of Variation 13.6 % 13.8 % Immature Granulocyte % (Auto) 1.2 % 0.4 % Immature Granulocyte # (Auto) 0.04 K/uL 0.02 K/uL Creatinine 0.88 mg/dl 0.93 mg/dl Est Creatinine Clear Calc Drug Dose 68.9 ml/min 65.2 ml/min Estimated GFR () 81.6 76.3 Estimated GFR (Non- 70.4 65.9 Troponin I 0.024 ng/ml 0.089 ng/ml Nucleated RBC Absolute Count (auto) 0.00 K/uL Nucleated Red Blood Cells % 0.0 % Prothrombin Time 22.0 SECONDS Prothromb Time International Ratio 2.0 Sodium Level 141 mmol/L Potassium Level 3.9 mmol/L Chloride Level 108 mmol/L Carbon Dioxide Level 29 mmol/L Anion Gap 4.0 mmol/L Blood Urea Nitrogen 21 mg/dl BUN/Creatinine Ratio 23.1 Random Glucose 185 mg/dl Estimated Average Glucose 194 mg/dl Hemoglobin A1c 8.4 % Calcium Level 8.5 mg/dl Test 04/30/17 05:53 04/30/17 09:21 Bedside Glucose 198 mg/dl Troponin I 0.162 ng/ml
[2017-04-30] MEDS ORDERED: PLV75 PO (13:20)
[2017-04-30] MEDS ORDERED: PANT40TA PO (13:20)
[2017-04-30] MEDS ORDERED: LPR25 PO (13:20)
--- NOTE | 2017-04-30 13:22 | Discharge Instructions ---
Discharge Instructions Procedure Procedure Date: Apr 30, 2017. Reason for Visit: Cad, Coronary Artery Stent. Discharge Discharge Date: Apr 30, 2017. Discharge Diagnosis: CAD status post bare metal stenting of the LAD. Residual moderate and small vessel disease noted. Last Recorded Wt (Kilograms): 83.500 Anesthesia Post Anesthesia Instructions: If you have had General Anesthesia or IV Sedation: * Do not drive today. * Resume driving when surgeon permits. * Do not make important decisions or sign legal documents today. * Call surgeon for: 1. Temperature elevations greater than 101 degrees F. 2. Uncontrollable pain. 3. Excessive bleeding. 4. Persistent nausea and vomiting. 5. Medication intolerance (nausea, vomiting or rash). * For nausea and vomiting use only clear liquids such as: tea, soda, bouillon until nausea subsides, then gradually increase diet as tolerated. * If you have any concerns or questions, call your surgeon's office. If physician is unavailable and it is an emergency, call 911 or go to the nearest emergency room. Instructions Activity Recommendations: limitations as noted below Return to School/Work: with the following limitations Recommended Home Diet: low cholesterol, diabetes diet Allergies: Coded Allergies: Clarithromycin (Verified Adverse Reaction, Intermediate, GI SYMPTOMS, 04/29) Iodinated Diagnostic Agents (Unverified Adverse Reaction, Unknown, CONTRAST-"COULDN'T FUNCTION", 10/24/16) Provider Instructions ACTIVITY RECOMMENDATIONS: It is common to feel weak and fatigue for a few days. * Do not drive or operate any motorized equipment for the next three days. * Limit stair usage (2 or 3 trips a day only) for the next three days. * Do not lift anything heavier than 10 pounds for the next three days. * Do not engage in vigorous exercise or any sports for the next five days. * You may shower the day after your procedure, but do not immerse the area for three days. Cleanse the site gently with soap and water. SPECIAL CARE INSTRUCTIONS: * You may replace the pressure dressing or band-aid the morning after the procedure. * After your procedure, it is normal to have a small bruise or small lump at the site. Examine your site daily for any change in the bruise or lump, redness, swelling, drainage or numbness. Notify your doctor if any change. BLEEDING: * If there is a small amount of bleeding at the site, lie down and apply firm pressure with a clean cloth for ten minutes. When the bleeding stops, lie quietly keeping the procedure limb straight for six hours. Notify your doctor as soon as possible. * If the bleeding does not stop after ten minutes or if there is a large amount of bleeding or spurting, call 911 immediately. Continue to lie down and hold firm pressure until help arrives. SKIN IRRITATION: * You may experience some redness and/or swelling in the area where radiation was administered. If any skin irritation occurs, please contact your family physician. FOLLOW UP VISIT: Keep any scheduled doctor appointments. Follow Up Follow-up with: Dr. Taurus Ray in 2-4 weeks. [facility] Recommendations: Call your doctor if: * Temperature above 101 degrees * Pain not relieved by pain medicine ordered * There is increased drainage or redness from any incision * You have any unanswered questions or concerns. Your Doctors Instructions noted above were prepared by provider Michi Ray. Patient Signature Section: Patient Instructions Signature Page Sara Garcia Patient (or Guardian) Signature/Date: I have read and understand the instructions given to me by my caregivers. Caregiver/RN/Doctor Signature/Date: The above-named patient and/or guardian has received patient instructions on this date. + Original Patient Signature Page (only) stays with chart. Please make copy for patient.
[2017-04-30] MEDS: PANTOprazole SOD 40 MG TAB PO SCH (13:30)
[2017-04-30] MEDS ORDERED: ALUMINUM/MAGNESIUM SUSP 30 ML UDC PO STA (15:14)
[2017-04-30] MEDS: WARFARIN SOD 5 MG TAB PO SCH (17:04)
[2017-04-30] MEDS: TRAZODONE HCL 50 MG TAB PO SCH (21:28)
[2017-05-01 03:41] VITALS: BP 119/64; PULSE 72; TEMP 36.9; O2SAT 91
[2017-05-01 04:00] VITALS: O2SAT 91
[2017-05-01 05:45] LABS: BASO % 0.4 %; BASO ABS # 0.02 K/uL (0-0.2); COMPLETE YES; EOS % 3.4 %; HEMATOCRIT 34.5 % (37-47); IG% 0.4 %; LYMPH % 45.1 %; LYMPH ABS # 2.01 K/uL (1.2-3.4); MEAN CELL VOLUME 87.6 fL (80-100); MEAN CORPUSCULAR HEMOGLOBIN 28.2 pg (25-34); MEAN CORPUSCULAR HGB CONC 32.2 g/dl (32-36); MEAN PLATELET VOLUME 9.1 fL (7.4-10.4); MONO % 9.2 %; NEUT % 41.5 %; PLATELET COUNT 197 K/uL (130-400); RED BLOOD COUNT 3.94 M/uL (4.2-5.4); WHITE BLOOD COUNT 4.46 K/uL (4.8-10.8)
[2017-05-01 06:15] LABS: BUN/CREATININE RATIO 22.7 (10-20); CALCIUM 8.5 mg/dl (8.5-10.1); CREATININE 1.1 mg/dl (0.60-1.20)
[2017-05-01 07:21] VITALS: BP 128/73; PULSE 65; TEMP 37.1; O2SAT 94
[2017-05-01] MEDS: FLUTICASONE PROPIONATE NA SPR 16 GM BTL NAE SCH (07:46)
[2017-05-01] MEDS: LOSARTAN POTASSIUM 50 MG TAB PO SCH (07:46)
[2017-05-01] MEDS: BuPROPion SR 150 MG TABCR PO SCH (07:46)
[2017-05-01] MEDS: CLOPIDOGREL BISULFATE 75 MG TAB PO SCH (07:46)
[2017-05-01] MEDS: ASPIRIN 81 MG ECTAB PO SCH (07:47)
[2017-05-01] MEDS: METOPROLOL TARTRATE 25 MG TAB PO SCH (07:47)
[2017-05-01] MEDS: ATORVASTATIN 40 MG TAB PO SCH (07:47)
[2017-05-01] MEDS: PANTOprazole SOD 40 MG TAB PO SCH (07:48)
[2017-05-01 08:00] VITALS: O2SAT 94
[2017-05-01] MEDS: INSULIN 70% ASPART PROTAMINE/30% ASPART SC SCH (08:08)
[2017-05-01] MEDS: INSULIN ASPART 100 UNITS/ML 3 ML PEN SC SCH (08:09)
--- NOTE | 2017-05-01 08:32 | Cardiology Follow-Up ---
Subjective General Date of Service: May 01, 2017. Chief Complaint: follow up chest pain Pt evaluation today including: conversation w/ patient, physical exam History of Present Illness The patient is a 61 year old female seen in cardiology follow up in coverage of Dr Ray who is her primary phlebotomist lab assistant as an outpatient. Patient feels well. She was transferred from the ICU to telemetry yesterday afternoon and has had no recurrent chest pain.Labs document a mild elevation in troponin post PCI that trended down on the most recent measurement. Telemetry reveal SR in the 70s without arrhythmia. Allergies Coded Allergies: Clarithromycin (Verified Adverse Reaction, Intermediate, GI SYMPTOMS, 04/29) Iodinated Diagnostic Agents (Unverified Adverse Reaction, Unknown, CONTRAST-"COULDN'T FUNCTION", 10/24/16) Social History Smoking Status: Never Smoker Hx Tobacco Use In Past Year?: No Hx Alcohol Use - Type And Amou: No Hx Substance Use - Type And Am: No Problem List Medical Problems: (1) Effusion of right knee joint Status: Acute (2) Fall Status: Acute (3) Right leg DVT Status: Acute Physical Exam Vital Signs Last Vital Signs Documentation Date Time Temp Pulse Resp B/P (MAP) Pulse Ox O2 Delivery O2 Flow Rate FiO2 05/01/17 07:21 37.1 65 18 128/73 (91) 94 Room Air 04/29/17 13:06 2.0 Physical Exam Constitutional: General Apperance: well-nourished, overweight Level of Distress: NAD Ambulation: ambulating normally Head: normocephalic, atraumatic ENMT: normal ENT inspection Lungs: Auscultation: breath sounds normal, no wheezing, no rales/crackles, no rhonchi Cardiovascular: Heart Auscultation: RRR, normal S1, normal S2, no murmurs, no rubs Peripheral Pulses: Radial Pulse: normal on the left, normal on the right Abdomen: Bowel Sounds: normal Inspection & Palpation: soft, non-distended, no tenderness, guarding & rebound Extremities: no cyanosis, no edema, no clubbing, no ulcers, pertinent finding ( right radial artery catheterization site is clean dry and intact, with no erythema, no ecchymosis) Neurologic: Gait & Station: pertinent finding (No focal motor deficit) Cranial Nerves: grossly intact Assessment and Plan Assessment and Plan Impression: 1. Patient noted recent exertional chest discomfort, follow-up to be me stress echocardiogram was abnormal and suggestive ischemia and therefore the patient underwent elective cardiac catheterization and PCI receiving a bare metal stent to the LAD on 04/29/17. Residual moderate small vessel disease noted at time of angiogram. Patient had atypical chest discomfort the morning after the procedure without ischemic EKG changes, and cardiac isoenzymes have trended toward improvement. 2. History of past pulmonary embolism and unprovoked recurrent DVT -with MTHFR mutation, elevated homocystine level, chronic Coumadin therapy 3. Dyslipidemia 4. Type 2 diabetes mellitus Plan: Isosorbide mononitrate was added for the treatment of small vessel disease. Given the need for chronic Coumadin therapy she is to remain on lifelong aspirin , and remain on clopidogrel for an interval 3 months at which time she'll be reassessed for planned discontinuation of clopidogrel at that time. The importance of adhering to her Coumadin and antiplatelet regimen was discussed with the patient. Patient tolerated her breakfast this morning, she has been walking in her room without any anginal symptoms, and she is eager for discharge. Plan for anticoagulation clinic follow-up as an outpatient. She received 5 mg of Coumadin on 04/29/17 and 04/30/17. Laboratory Results Last 24 Hours Test 04/30/17 09:21 04/30/17 11:04 04/30/17 13:46 04/30/17 17:02 Troponin I 0.162 ng/ml 0.179 ng/ml Bedside Glucose 241 mg/dl 122 mg/dl Test 04/30/17 20:21 04/30/17 20:24 05/01/17 05:33 Troponin I 0.146 ng/ml Bedside Glucose 97 mg/dl White Blood Count 4.46 K/uL Red Blood Count 3.94 M/uL Hemoglobin 11.1 g/dL Hematocrit 34.5 % Mean Corpuscular Volume 87.6 fL Mean Corpuscular Hemoglobin 28.2 pg Mean Corpuscular Hemoglobin Concent 32.2 g/dl Platelet Count 197 K/uL Mean Platelet Volume 9.1 fL Neutrophils (%) (Auto) 41.5 % Lymphocytes (%) (Auto) 45.1 % Monocytes (%) (Auto) 9.2 % Eosinophils (%) (Auto) 3.4 % Basophils (%) (Auto) 0.4 % Neutrophils # (Auto) 1.85 K/uL Lymphocytes # (Auto) 2.01 K/uL Monocytes # (Auto) 0.41 K/uL Eosinophils # (Auto) 0.15 K/uL Basophils # (Auto) 0.02 K/uL RDW Standard Deviation 45.1 fL RDW Coefficient of Variation 14.1 % Immature Granulocyte % (Auto) 0.4 % Immature Granulocyte # (Auto) 0.02 K/uL Sodium Level 143 mmol/L Potassium Level 4.0 mmol/L Chloride Level 109 mmol/L Carbon Dioxide Level 30 mmol/L Anion Gap 4.0 mmol/L Blood Urea Nitrogen 25 mg/dl Creatinine 1.10 mg/dl Est Creatinine Clear Calc Drug Dose 54.5 ml/min Estimated GFR () 62.3 Estimated GFR (Non- 53.8 BUN/Creatinine Ratio 22.7 Random Glucose 138 mg/dl Calcium Level 8.5 mg/dl
[2017-05-01] MEDS ORDERED: IMDSR30 PO (08:36)
--- NOTE | 2017-05-01 08:47 | Discharge Summary ---
Discharge Summary Date of Service May 01, 2017. Discharge Summary Admission Date: Apr 29, 2017 at 10:32 Discharge Date: May 01, 2017 Principal Diagnosis: Recent symptoms of exertional angina, cardiac catheterization confirmed culprit LAD stenosis for which the patient what pertains coronary intervention with bare metal stenting to the LAD. Residual small vessel disease was noted which is going to be treated medically. Secondary Diagnoses/Problems: History of pulmonary embolism, DVT for which patient is on chronic coumadin Procedures: Diagnostic cardiac catheterization, PCI to LAD on 04/29/17. -Refer to procedure. Pending Studies/Follow-Up: Follow-up with Dr. Ray as planned. Follow-up with [facility] anticoagulation clinic as planned. Medication Reconciliation New Medications: Pantoprazole (Protonix) 40 Mg Tab 40 MG PO DAILY, #30 TAB Clopidogrel Bisulfate (Clopidogrel) 75 Mg Tab 75 MG PO QAM for 30 Days, #30 TAB 6 Refills Isosorbide Mononitrate (Isosorbide Mononitrate ER) 30 Mg Tabcr 30 MG PO QAM for 30 Days, #30 Metoprolol Tartrate (Lopressor) 25 Mg Tab 25 MG PO Q12 for 30 Days, #60 TAB 6 Refills Continued Medications: Amino Acids (Amino Acids Complex) 1 Tab Tab 1 TAB PO DAILY Artificial Tear Solution (Tears Naturale) 1 Skye Skye 1 DROP OPB Q2H PRN for EYE DRYNESS Aspirin (Aspirin Ec) 81 Mg Tab 81 MG PO DAILY Atorvastatin (Lipitor) 40 Mg Tab 40 MG PO DAILY, TAB Bupropion (Wellbutrin Sr) 150 Mg Ertab 150 MG PO BID, TAB Cyanocobalamin (Vitamin B-12) 500 Mcg Tab 500 MCG SL DAILY, TAB Ergocalciferol (Vitamin D 41617 Unit) 50,000 Unit Cap 1 CAP PO WK for 28 Days, #4 CAP 2 Refills Fluticasone Propionate (Nasal) (Flonase Allergy Relief) 50 Mcg/Act Spr 2 SPRAY HOLLAND DAILY Insulin Aspart 70/30 (Novolog Mix 70/30) Susp 50 UNITS SC QAM, BTL Insulin Aspart 70/30 (Novolog Mix 70/30) Susp 40 UNITS SC QPM, BTL Lorazepam (Ativan) 0.5 Mg Tab 0.5 MG PO TID PRN for Anxiety/Agitation, TAB Losartan Potassium (Cozaar) 100 Mg Tab 100 MG PO DAILY, TAB Magnesium Oxide (Magnesium) 400 Mg Tab 400 MG PO DAILY Metformin Hcl (Metformin Hcl Er) 500 Mg Tab 500 MG PO BID for 90 Days, #180 TAB 1 Refill Methocarbamol (Robaxin) 500 Mg Tab 500 MG PO TID PRN for Muscle Spasms, TAB TAKE 1/2 TO 1 TAB UP TO 3X A DAY. Ondansetron Hcl (Zofran) 4 Mg Tab 4 MG PO Q6H PRN for Nausea, TAB Oxycodone Immediate Rel Tab (Roxicodone Ir) 5 Mg Tab 1-2 TAB PO Q4H PRN for Severe Pain, #20 TAB For Initial Treatment Oxycodone/Acetaminophen 5MG/325MG (Percocet 5MG/325MG) Tab 1 TABLET PO Q4H PRN for Pain, TAB PAIN Polyethylene Glycol 3350 (Miralax) 1 Pow Pow 17 GM PO DAILY PRN for Constipation, #255 GM Psyllium (Metamucil Free & Natural) 43 % Pow 1 DOSE PO DIRECTED Senna/Docusate Sod (Senokot S) 1 Tab Tab 2-4 TAB PO DAILY PRN for Constipation, TAB Tramadol (Ultram) 50 Mg Tab 50 MG PO Q6H PRN for Pain, TAB Trazodone Hcl (Desyrel) 50 Mg Tab 150 MG PO HS Warfarin Sod (Jantoven) 5 Mg Tab 5 MG PO DIRECTED Discontinued Medications: Omeprazole (Prilosec) 20 Mg Capcr 20 MG PO DAILY, CAP Hospital Course The patient is a 61 year old female seen in cardiology follow up in coverage of Dr Ray who is her primary leveler as an outpatient. She was transferred from the ICU to telemetry 04/30/17 and has had no recurrent chest pain.Labs document a mild elevation in troponin post PCI that trended down on the most recent measurement. Telemetry am of 05/01/17 reveals SR in the 70s without arrhythmia. Problem List: 1. Patient noted recent exertional chest discomfort, follow-up to be me stress echocardiogram was abnormal and suggestive ischemia and therefore the patient underwent elective cardiac catheterization and PCI receiving a bare metal stent to the LAD on 04/29/17. Residual moderate small vessel disease noted at time of angiogram. Patient had atypical chest discomfort the morning after the procedure without ischemic EKG changes, and cardiac isoenzymes have trended toward improvement. 2. History of past pulmonary embolism and unprovoked recurrent DVT -with MTHFR mutation, elevated homocystine level, chronic Coumadin therapy 3. Dyslipidemia 4. Type 2 diabetes mellitus Plan: Isosorbide mononitrate was added for the treatment of small vessel disease. Given the need for chronic Coumadin therapy she is to remain on lifelong aspirin , and remain on clopidogrel for an interval 3 months at which time she'll be reassessed for planned discontinuation of clopidogrel at that time. The importance of adhering to her Coumadin and antiplatelet regimen was discussed with the patient. Patient tolerated her breakfast this morning, she has been walking in her room without any anginal symptoms, and she is eager for discharge. Plan for anticoagulation clinic follow-up as an outpatient. She received 5 mg of Coumadin on 04/29/17 and 04/30/17. Total time spent on discharge = 45 This includes examination of the patient, discharge planning, medication reconciliation, and communication with other providers. Discharge Instructions ACTIVITY RECOMMENDATIONS: It is common to feel weak and fatigue for a few days. * Do not drive or operate any motorized equipment for the next three days. * Limit stair usage (2 or 3 trips a day only) for the next three days. * Do not lift anything heavier than 10 pounds for the next three days. * Do not engage in vigorous exercise or any sports for the next five days. * You may shower the day after your procedure, but do not immerse the area for three days. Cleanse the site gently with soap and water. SPECIAL CARE INSTRUCTIONS: * You may replace the pressure dressing or band-aid the morning after the procedure. * After your procedure, it is normal to have a small bruise or small lump at the site. Examine your site daily for any change in the bruise or lump, redness, swelling, drainage or numbness. Notify your doctor if any change. BLEEDING: * If there is a small amount of bleeding at the site, lie down and apply firm pressure with a clean cloth for ten minutes. When the bleeding stops, lie quietly keeping the procedure limb straight for six hours. Notify your doctor as soon as possible. * If the bleeding does not stop after ten minutes or if there is a large amount of bleeding or spurting, call 911 immediately. Continue to lie down and hold firm pressure until help arrives. SKIN IRRITATION: * You may experience some redness and/or swelling in the area where radiation was administered. If any skin irritation occurs, please contact your family physician. FOLLOW UP VISIT: Keep any scheduled doctor appointments.
[2017-05-01] MEDS ORDERED: ISOSORBIDE MONONITRATE 30 MG TABCR PO SCH (09:00)
[2017-05-01 09:42] VITALS: BP 128/73; PULSE 65; TEMP 37.1; O2SAT 94
== END 2017-05-01 10:25 | disposition home or self-care (01) ==
LOC: C.CATH 06:36 → ENRESERV 10:22 → C.MSICU 10:32 → C.2T 04-30 19:19
PROVIDERS: ADMIT Internal Medicine Cardiovascular Disease; ATTEND Internal Medicine Cardiovascular Disease
DX: I25.119 Atherosclerotic heart disease of native coronary artery with unspecified angina pectoris (principal); E72.12 Methylenetetrahydrofolate reductase deficiency; E78.5 Hyperlipidemia, unspecified; E11.9 Type 2 diabetes mellitus without complications; Z86.711 Personal history of pulmonary embolism; Z86.718 Personal history of other venous thrombosis and embolism; Z79.4 Long term (current) use of insulin; Z79.82 Long term (current) use of aspirin; Z79.01 Long term (current) use of anticoagulants; Z83.3 Family history of diabetes mellitus; Z82.49 Family history of ischemic heart disease and other diseases of the circulatory system; Z80.41 Family history of malignant neoplasm of ovary

== ENCOUNTER 2017-05-13 14:21 | Emergency (ER) | payer OTHER ==
[~2017-05-13] VITALS: Ht 160 cm; Wt 83.3 kg
[~2017-05-13 14:21] MED LIST changes: -ALUMSUS2 PO; +AMINTAB13 PO; +ASPI81TA28 PO; +BUPR-79 PO; -BUPR-83 PO; -CLC100 PO; +CYAN500T SL; +FLUT0.15 NAE; +IMDSR30 PO; +LPR25 PO; +METF1TAB85 PO; -METF750T PO; +PANT40TA PO; +PLV75 PO; -PRLSR20 PO; +PSYL43PO PO; +SENN-65 PO; -WARF2.5T8 PO
[2017-05-13 14:25] VITALS: TEMP 37.1; Ht 160 cm; Wt 83.3 kg
[2017-05-13] MEDS ORDERED: ONDANSETRON INJ 2 MG/ML 2 ML VIAL IV STA (16:01)
[2017-05-13] MEDS ORDERED: GI COCKTAIL PO STA (16:01)
[2017-05-13] MEDS ORDERED: PANTOprazole INJ 40 MG in SYRINGE 0 ML IV ONE (16:15)
--- NOTE | 2017-05-13 16:15 | EMERGENCY ROOM VISIT NOTE ---
History First contact with patient: 15:12 Chief Complaint: CARDIAC ASSESSMENT Stated Complaint: CHEST PAINS/INDIGESTION Nursing Triage Summary: "I was told by Dr. Mary's office to go to the ER and have blood work, something with my heart. I have been having indigestion and stabbing twinges that comes and goes at times" per pt. History of Present Illness The patient is a 61 year old female with a history of bilateral PE and recurrent unprovoked DVT, HTN, HLD, T2D, and MTHFR mutation who presents to the Emergency Room with complaints of worsening chest discomfort. The patient states that her reflux symptoms which are described as burning, substernal, 5/10 , and more frequent have now moved up towards her neck and are also radiating to her left shoulder. She also states that she is having the sensation like she is being poked with a pencil over her heart region. Both of these symptoms have become more frequent since having a stent placed on 05/01 with cardiology. The patient was admitted with exertional chest pain for cardiac cath and was found to have LAD stenosis and subsequent bare metal stent placement. Since the stent placement and discharge she has had worsening of the symptoms described above and they have become more frequent. She also states that she has been having more frequent headaches as well. She states that food intake has been reduced but says she is still having a healthy intake. She was also recently started on a low dose of Protonix by her single stroke preformer. Review of Systems See HPI for pertinent positives and negatives. A total of ten systems were reviewed and were otherwise negative. Past Medical/Surgical History Medical Problems: (1) Anxiety (2) Bilateral pulmonary embolism (3) CAD,coronary artery stent (4) Depression (5) Diabetes (6) Hyperlipidemia (7) Hypertension (8) Ovarian cancer (9) UTI (urinary tract infection) Surgical Problems: (1) H/O total hip arthroplasty (2) History of appendectomy (3) History of cholecystectomy (4) History of hysterectomy with oophorectomy (5) Left femur ORIF Family History FHx: diabetes FHx: heart disease FHx: kidney stones FHx: ovarian cancer Hypertension Social History Smoking Status: Never Smoker Alcohol Use: none Drug Use: none Marital Status: single Occupation Status: disabled Current/Historical Medications Scheduled Amino Acids (Amino Acids Complex), 1 TAB PO DAILY Aspirin (Aspirin Ec), 81 MG PO DAILY Atorvastatin (Lipitor), 40 MG PO DAILY Bupropion (Wellbutrin Sr), 150 MG PO BID Clopidogrel Bisulfate (Plavix), 75 MG PO DAILY Cyanocobalamin (Vitamin B-12), 500 MCG SL DAILY Ergocalciferol (Vitamin D 19184 Unit), 1 CAP PO WK Fluticasone Propionate (Nasal) (Flonase Allergy Relief), 2 SPRAY HOLLAND DAILY Insulin Aspart 70/30 (Novolog Mix 70/30), 50 UNITS SC QAM Insulin Aspart 70/30 (Novolog Mix 70/30), 40 UNITS SC QPM Isosorbide Mononitrate Ext Rel (Imdur Ext Rel), 30 MG PO QAM Losartan Potassium (Cozaar), 100 MG PO DAILY Magnesium Oxide (Magnesium), 400 MG PO DAILY Metformin Hcl (Metformin Hcl Er), 500 MG PO BID Metoprolol Tartrate (Lopressor) (Lopressor), 25 MG PO BID Pantoprazole (Protonix), 40 MG PO DAILY Psyllium (Metamucil Free & Natural), 1 DOSE PO DIRECTED Trazodone Hcl (Desyrel), 150 MG PO HS Warfarin Sod (Jantoven), 5 MG PO 6XWK Warfarin Sod (Jantoven), 2.5 MG PO THURSDAY Scheduled PRN Artificial Tear Solution (Tears Naturale), 1 DROP OPB Q2H PRN for EYE DRYNESS Lorazepam (Ativan), 0.5 MG PO TID PRN for Anxiety/Agitation Methocarbamol (Robaxin), 500 MG PO TID PRN for Muscle Spasms Ondansetron Hcl (Zofran), 4 MG PO Q6H PRN for Nausea Oxycodone/Acetaminophen 5MG/325MG (Percocet 5MG/325MG), 1 TABLET PO Q4H PRN for Pain Polyethylene Glycol 3350 (Miralax), 17 GM PO DAILY PRN for Constipation Senna/Docusate Sod (Senokot S), 2-4 TAB PO DAILY PRN for Constipation Tramadol (Ultram), 50 MG PO Q6H PRN for Pain Physical Exam Vital Signs Date Time Temp Pulse Resp B/P (MAP) Pulse Ox O2 Delivery O2 Flow Rate FiO2 05/13/17 18:40 76 05/13/17 18:36 74 20 108/70 94 Room Air 05/13/17 16:48 78 18 107/71 95 Room Air 05/13/17 16:48 78 20 107/71 95 Room Air 05/13/17 14:28 95 Room Air 05/13/17 14:25 37.1 78 18 122/79 95 Room Air Physical Exam GENERAL: Awake, alert, well-appearing, in no distress HENT: Normocephalic, atraumatic. Oropharynx unremarkable. EYES: Normal conjunctiva. Sclera non-icteric. NECK: Supple. No nuchal rigidity. RESPIRATORY: Clear to auscultation. CARDIAC: Regular rate, normal rhythm. Extremities warm and well perfused. Pulses equal. ABDOMEN: Soft, non-distended. No tenderness to palpation. No rebound or guarding. No masses. RECTAL: Deferred. MUSCULOSKELETAL: Chest examination reveals tenderness over sternal region in addition to over the left side of the chest. The back is symmetrical on inspection without obvious abnormality. There is no CVA tenderness to palpation. No joint edema. LOWER EXTREMITIES: Calves are equal size bilaterally and non-tender. No edema. No discoloration. NEURO: Normal sensorium. No sensory or motor deficits noted. SKIN: No rash or jaundice noted. Medical Decision & Procedures Laboratory Results 05/13/17 16:20 Red Blood Count 4.15, Mean Corpuscular Volume 84.6, Mean Corpuscular Hemoglobin 28.7, Mean Corpuscular Hemoglobin Concent 33.9, Mean Platelet Volume 9.5, Neutrophils (%) (Auto) 58.8, Lymphocytes (%) (Auto) 30.8, Monocytes (%) (Auto) 7.5, Eosinophils (%) (Auto) 2.3, Basophils (%) (Auto) 0.4, Neutrophils # (Auto) 3.12, Lymphocytes # (Auto) 1.63, Monocytes # (Auto) 0.40, Eosinophils # (Auto) 0.12, Basophils # (Auto) 0.02 05/13/17 16:20 Test 05/13/17 16:20 05/13/17 17:43 05/13/17 18:13 White Blood Count 5.30 K/uL (4.8-10.8) Red Blood Count 4.15 M/uL (4.2-5.4) Hemoglobin 11.9 g/dL (12.0-16.0) Hematocrit 35.1 % (37-47) Mean Corpuscular Volume 84.6 fL (80-100) Mean Corpuscular Hemoglobin 28.7 pg (25-34) Mean Corpuscular Hemoglobin Concent 33.9 g/dl (32-36) Platelet Count 222 K/uL (130-400) Mean Platelet Volume 9.5 fL (7.4-10.4) Neutrophils (%) (Auto) 58.8 % Lymphocytes (%) (Auto) 30.8 % Monocytes (%) (Auto) 7.5 % Eosinophils (%) (Auto) 2.3 % Basophils (%) (Auto) 0.4 % Neutrophils # (Auto) 3.12 K/uL (1.4-6.5) Lymphocytes # (Auto) 1.63 K/uL (1.2-3.4) Monocytes # (Auto) 0.40 K/uL (0.11-0.59) Eosinophils # (Auto) 0.12 K/uL (0-0.5) Basophils # (Auto) 0.02 K/uL (0-0.2) RDW Standard Deviation 43.6 fL (36.4-46.3) RDW Coefficient of Variation 14.2 % (11.5-14.5) Immature Granulocyte % (Auto) 0.2 % Immature Granulocyte # (Auto) 0.01 K/uL (0.00-0.02) Prothrombin Time 16.3 SECONDS (9.0-12.0) Prothromb Time International Ratio 1.5 (0.9-1.1) Anion Gap 11.0 mmol/L (3-11) Est Creatinine Clear Calc Drug Dose 33.1 ml/min Estimated GFR () 34.4 Estimated GFR (Non- 29.6 BUN/Creatinine Ratio 14.2 (10-20) Calcium Level 9.0 mg/dl (8.5-10.1) Total Bilirubin 0.8 mg/dl (0.2-1) Direct Bilirubin 0.2 mg/dl (0-0.2) Aspartate Amino Transf (AST/SGOT) 19 U/L (15-37) Alanine Aminotransferase (ALT/SGPT) 29 U/L (12-78) Alkaline Phosphatase 90 U/L (45-117) Total Protein 7.2 gm/dl (6.4-8.2) Albumin 3.7 gm/dl (3.4-5.0) Lipase 88 U/L (73-393) Bedside Troponin I < 0.030 ng/ml (0-0.045) Bedside D-Dimer 55 ng/mlFEU (0-450) Medications Administered Medications (Trade) Dose Ordered Sig/Michael Route Start Time Stop Time Status Last Admin Dose Admin Pantoprazole Sodium 40 mg/ Syringe 10 ml @ 5 mls/min NOW ONCE IV 05/13/17 16:15 05/13/17 16:16 DC 05/13/17 16:36 5 MLS/MIN Ondansetron HCl (Zofran Inj) 4 mg NOW STAT IV 05/13/17 16:01 05/13/17 16:04 DC 05/13/17 16:36 4 MG Lidocaine HCl (Viscous Lidocaine 2% Soln) 20 ml STK-MED ONCE .ROUTE 05/13/17 16:30 05/13/17 16:31 DC 05/13/17 16:36 10 ML Al Hydroxide/Mg Hydroxide (Maalox Susp) 30 ml STK-MED ONCE .ROUTE 05/13/17 16:31 05/13/17 16:32 DC 05/13/17 16:35 30 ML Sodium Chloride 1,000 ml @ 200 mls/hr Q5H IV 05/13/17 18:02 06/12/17 18:01 05/13/17 18:30 200 MLS/HR Sucralfate (Carafate Susp) 1 gm QID PO 05/13/17 21:00 06/12/17 20:59 05/13/17 19:18 1 GM Enoxaparin Sodium (Lovenox Inj) 120 mg NOW ONCE SQ 05/13/17 19:00 05/13/17 19:01 DC 05/13/17 19:18 120 MG Warfarin Sodium (Coumadin Tab) 5 mg NOW ONCE PO 05/13/17 19:00 05/13/17 19:01 DC 05/13/17 18:58 5 MG ED Course Patient is a 61 year old female that presents with worsening chest discomfort 1600: Patient examined and evaluated - EKG: NSR, rate of 76 bpm, No ST changes, No T wave inversions - Tenderness to palpation over the chest wall on exam - Complaints of chest discomfort existed prior to Cath and stenting on 04/30 but have worsened since - Labs Ordered: CBC, BMP, LFT, Lipase, PT/INR, Troponin - Imaging: Chest X-Ray - Medications: Zofran, GI Cocktail, Protonix 1729: Patient reevaluated - Substernal discomfort has now resolved with above medications - Left sided chest pain has improved but still a 3-11/17 1756: - BMP shows elevated BUN and Cr --> Ordered Urinalysis, NS 125ml/hr - INR subterapeutic --> Finding in addition to atypical chest pain --> Order D- Dimer 1830: D-Dimer - Reviewed results that showed a normal D-Dimer level of 55 1843: - Discussed patient with Dr. Preston of Cardiology who stated that with the negative troponin and unchanged EKG the patient would be appropriate for discharge from a Cardiac standpoint 1848: - Ordered 120mg Lovenox for anticoagulation bridge - Extra dose of Coumadin 5mg PO - Carafate Medical Decision Patient is a 61 year old female that presents with worsening chest discomfort Etiologies such as cardiac ischemia, aortic dissection, pulmonary embolism, pneumonia, pneumothorax, musculoskeletal, infections, gastrointestinal, as well as others were entertained. Due to the patients recent history of coronary artery stenting on 04/30 and history of recurrent unprovoked DVTs with PEs the patient was thoroughly worked up for cardiac causes of chest pain in addition to possible PEs. EKG was unchanged from her previous visit and Troponin was 0 so a cardiac event was ruled out. Patient D-Dimer level was low (55), patient HR was 70s-80s, and O2 sats were normal all reassuring for now pulmonary embolism. Patient discomfort improved initially with GI cocktail, Zofran, and IV protonix although the discomfort slowly recurred. After adding on Carafate patient discomfort once again improved and patient became very anxious to be discharged. Patient reassured that discomfort did not appear to be an NH or PE although due to significant past medical history of CAD and PE with MTHFR her index of suspicion for returning to the ED should be low. Her INR was also found to be low so we gave a dose of 120mg of Lovenox (1.5mg/kg) in addition to an additional dose of Warfarin with instructions to follow up her INR tomorrow as an outpatient. Impression Primary Impression: Chest pain Additional Impression: History of coronary artery stent placement Departure Information Dispostion Home / Self-Care Condition GOOD Referrals Shira Ray D.O. (PCP) Patient Instructions My [facility] Additional Instructions FOLLOW UP TO CHECK YOUR INR LEVEL TOMORROW. YOUR INR WAS 1.5 SO WE GAVE YOU AN EXTRA DOSE OF COUMADIN + A DOSE OF LOVENOX IN THE EMERGENCY DEPARTMENT Fill your prescriptions for Protonix and Zantac given to you by your primary care doctor Return to the ER immediately for worsening or persistent chest pain, abdominal pain, vomiting, fevers, chest pains, difficulty breathing, worsening of your condition, or as needed. Follow up with your primary physician in 2-3 days for a recheck of your current condition. Acetaminophen(Tylenol) may be used for fever or pain. Use 1000mg every six hours as needed. Avoid using more than 4000mg in a 24 hour period. Rest and drink plenty of fluids as tolerated. Continue current medications. Avoid strenuous activities and anything that worsens your pain. Resume normal activities once your symptoms resolve. Resident Tracking Resident Involvement: Resident Care Provided Care Provided: Adult ED Problem Qualifiers Primary Impression: Chest pain Chest pain type: other chest pain Qualified Codes: R07.89 - Other chest pain
--- NOTE | 2017-05-13 16:22 | DIAGNOSTIC IMAGING REPORT ---
SINGLE VIEW CHEST CLINICAL HISTORY: Atypical chest pain. FINDINGS: An AP, portable, upright chest radiograph is compared to chest x-ray and chest CT dated 11/08/2015 . The examination is degraded by portable technique, large body habitus, and patient rotation. The cardiomediastinal silhouette is unremarkable. There is mild atherosclerotic calcification of the thoracic aorta. There are low lung volumes and bibasilar atelectasis. No airspace consolidation is seen typical for pneumonia and there is no large pleural effusion. No pneumothorax is seen. The skeletal structures are osteopenic. The bony thorax is grossly intact. Calcific tendinopathy is noted in the right shoulder. IMPRESSION: No acute cardiopulmonary abnormality. Electronically signed by: Anton Velez M.D. 05/13/2017 4:20 PM Dictated Date/Time: 05/13/2017 4:19 PM
[2017-05-13] MEDS ORDERED: LIDOCAINE HCL 2% VISC SOLN 20 ML UDC ONE (16:30)
[2017-05-13] MEDS ORDERED: ALUMINUM/MAGNESIUM SUSP 30 ML UDC ONE (16:31)
[2017-05-13 16:53] LABS: BASO % 0.4 %; BASO ABS # 0.02 K/uL (0-0.2); COMPLETE YES; EOS % 2.3 %; HEMATOCRIT 35.1 % (37-47); IG% 0.2 %; LYMPH % 30.8 %; LYMPH ABS # 1.63 K/uL (1.2-3.4); MEAN CELL VOLUME 84.6 fL (80-100); MEAN CORPUSCULAR HEMOGLOBIN 28.7 pg (25-34); MEAN CORPUSCULAR HGB CONC 33.9 g/dl (32-36); MEAN PLATELET VOLUME 9.5 fL (7.4-10.4); MONO % 7.5 %; NEUT % 58.8 %; PLATELET COUNT 222 K/uL (130-400); RED BLOOD COUNT 4.15 M/uL (4.2-5.4)
--- NOTE | 2017-05-13 17:00 | EMERGENCY ROOM VISIT NOTE ---
ED Visit Note First contact with patient: 15:12 Pt seen and examined at bedside after discussion with the resident. Pt states chest pain is starting to improve since medication. Patient with recent stent placement, however part of her chest pain has been chronic and ongoing even prior to placement stent and did not improved following. Patient was started on GI medications here, although does take your medications daily. Doubt tamponade, dissection, PE despite subtherapeutic INR. Dimer added after discussion with resident. Patient will be bridged using Lovenox an additional dose of Coumadin. Discussed close follow-up with her physician regarding recheck of her INR and level in 48 hours. Resident discussed the case with cardiology also. Patient aware of all results was agreeable with plan. Discussed symptoms to watch and return for.
[2017-05-13 17:04] LABS: INR 1.5 (0.9-1.1); PROTHROMBIN TIME (PATIENT) 16.3 SECONDS (9.0-12.0)
[2017-05-13 17:14] LABS: BUN/CREATININE RATIO 14.2 (10-20); CREATININE 1.8 mg/dl (0.60-1.20)
[2017-05-13] MEDS ORDERED: METO25TA56 PO (17:20)
[2017-05-13] MEDS ORDERED: WARF2.5T8 PO (17:20)
[2017-05-13] MEDS ORDERED: ISOS30TA3 PO (17:20)
[2017-05-13] MEDS ORDERED: PANT40TA PO (17:20)
[2017-05-13] MEDS ORDERED: CLOP1TAB5 PO (17:20)
[2017-05-13] MEDS ORDERED: SODIUM CHLORIDE 0.9% 1000ML 1,000 ML IV SCH (18:02)
[2017-05-13] MEDS ORDERED: ENOXAPARIN 120 MG/0.8 ML SYR SQ ONE (19:00)
[2017-05-13] MEDS ORDERED: WARFARIN SOD 5 MG TAB PO ONE (19:00)
[2017-05-13 19:50] VITALS: BP 126/78; PULSE 72; O2SAT 94
[2017-05-13] MEDS ORDERED: SUCRALFATE 1 GM/10 ML UDC PO SCH (21:00)
== END 2017-05-13 19:50 | disposition home or self-care (01) ==
LOC: C.EDB 14:24 → C.EDC 19:50
DX: R07.89 Other chest pain (principal); Z86.711 Personal history of pulmonary embolism; F41.9 Anxiety disorder, unspecified; Z95.5 Presence of coronary angioplasty implant and graft; I25.10 Atherosclerotic heart disease of native coronary artery without angina pectoris; F32.9 Major depressive disorder, single episode, unspecified; E11.9 Type 2 diabetes mellitus without complications; E78.5 Hyperlipidemia, unspecified; I10 Essential (primary) hypertension; Z85.43 Personal history of malignant neoplasm of ovary; Z87.440 Personal history of urinary (tract) infections; Z96.649 Presence of unspecified artificial hip joint; Z90.49 Acquired absence of other specified parts of digestive tract; Z90.710 Acquired absence of both cervix and uterus; Z90.722 Acquired absence of ovaries, bilateral; Z83.3 Family history of diabetes mellitus; Z84.1 Family history of disorders of kidney and ureter; Z82.49 Family history of ischemic heart disease and other diseases of the circulatory system; Z80.41 Family history of malignant neoplasm of ovary; Z79.01 Long term (current) use of anticoagulants

== ENCOUNTER 2017-10-01 10:50 | Observation (INO) | payer OTHER ==
[~2017-10-01] VITALS: Ht 157.5 cm; Wt 83.0 kg
[~2017-10-01 10:50] MED LIST changes: +CLOP1TAB5 PO; -ERGO1CAP41 PO; +ERGO500011 PO; -IMDSR30 PO; +ISOS30TA3 PO; -LPR25 PO; +METO25TA56 PO; -OXYC1TAB3 PO; -PLV75 PO; +TRAZ-119 PO; -TRAZ1TAB16 PO; +WARF2.5T8 PO
[2017-10-01] MEDS ORDERED: SODIUM CHLORIDE 0.9% 1000ML 1,000 ML IV ONE (11:28)
--- NOTE | 2017-10-01 11:33 | EMERGENCY ROOM VISIT NOTE ---
History Report prepared by Lesli: Heidi Munoz Under the Supervision of: Dr. Brian Kathleen D.O. First contact with patient: 11:25 Chief Complaint: HYPOTENSION Stated Complaint: HYPOTENSION History of Present Illness The patient is a 62 year old female who presents to the Emergency Room with complaints of hypotension occurring shortly prior to arrival. The patient reports having a headache, dizziness, and light-headedness. She also reports vomiting once but denies having fevers, a cough, and urinary symptoms. The patient states that she was at the wound center to have dressing put on her diabetic ulcer.The patient states that she has a staph infection in her right foot. She states that she was then referred here because her lips were blue and she was having blurry vision. Source of History: patient Onset: shortly prior to arrival Position: other (global) Quality: other (hypotension ) Associated Symptoms: + headache, + vomiting, + weakness (dizziness, light- headedness), No fevers, No cough, No urinary symptoms Note: additional symptoms: blurry vision Review of Systems See HPI for pertinent positives & negatives. A total of 10 systems reviewed and were otherwise negative. Past Medical & Surgical Medical Problems: (1) Anxiety (2) Bilateral pulmonary embolism (3) CAD,coronary artery stent (4) Depression (5) Diabetes (6) Hyperlipidemia (7) Hypertension (8) Ovarian cancer (9) UTI (urinary tract infection) Surgical Problems: (1) H/O total hip arthroplasty (2) History of appendectomy (3) History of cholecystectomy (4) History of hysterectomy with oophorectomy (5) Left femur ORIF Family History FHx: diabetes FHx: heart disease FHx: kidney stones FHx: ovarian cancer Hypertension Social History Smoking Status: Former Smoker Alcohol Use: none Drug Use: none Marital Status: single Occupation Status: retired Current/Historical Medications Scheduled Amino Acids (Amino Acids Complex), 1 TAB PO DAILY Aspirin (Aspirin Ec), 81 MG PO DAILY Atorvastatin (Lipitor), 40 MG PO DAILY Bupropion (Wellbutrin Sr), 150 MG PO BID Clopidogrel Bisulfate (Plavix), 75 MG PO DAILY Cyanocobalamin (Vitamin B-12), 500 MCG SL DAILY Ergocalciferol (Vitamin D 77539 Unit), 1 CAP PO WK Fluticasone Propionate (Nasal) (Flonase Allergy Relief), 2 SPRAY HOLLADN DAILY Insulin Aspart 70/30 (Novolog Mix 70/30), 50 UNITS SC QAM Insulin Aspart 70/30 (Novolog Mix 70/30), 40 UNITS SC QPM Isosorbide Mononitrate Ext Rel (Imdur Ext Rel), 30 MG PO QAM Losartan Potassium (Cozaar), 100 MG PO DAILY Magnesium Oxide (Magnesium), 400 MG PO DAILY Metformin Hcl (Metformin Hcl Er), 500 MG PO BID Metoprolol Tartrate (Lopressor) (Lopressor), 25 MG PO BID Pantoprazole (Protonix), 40 MG PO DAILY Psyllium (Metamucil Free & Natural), 1 DOSE PO DIRECTED Trazodone Hcl (Desyrel), 150 MG PO HS Warfarin Sod (Jantoven), 5 MG PO 4XWK Warfarin Sod (Jantoven), 7.5 MG PO MWF Scheduled PRN Artificial Tear Solution (Tears Naturale), 1 DROP OPB Q2H PRN for EYE DRYNESS Lorazepam (Ativan), 0.5 MG PO TID PRN for Anxiety/Agitation Methocarbamol (Robaxin), 500 MG PO TID PRN for Muscle Spasms Ondansetron Hcl (Zofran), 4 MG PO Q6H PRN for Nausea Oxycodone/Acetaminophen 5MG/325MG (Percocet 5MG/325MG), 1 TABLET PO Q4H PRN for Pain Polyethylene Glycol 3350 (Miralax), 17 GM PO DAILY PRN for Constipation Senna/Docusate Sod (Senokot S), 2-4 TAB PO DAILY PRN for Constipation Tramadol (Ultram), 50 MG PO Q6H PRN for Pain Allergies Coded Allergies: Sulfa Antibiotics (Verified Allergy, Unknown, GI SYMPTOMS, 09/24/17) Clarithromycin (Verified Adverse Reaction, Intermediate, GI SYMPTOMS, 05/13) Iodinated Diagnostic Agents (Unverified Adverse Reaction, Unknown, CONTRAST-"COULDN'T FUNCTION", 05/13/17) Physical Exam Vital Signs Date Time Temp Pulse Resp B/P (MAP) Pulse Ox O2 Delivery O2 Flow Rate FiO2 10/01/17 15:31 79 16 99/59 93 Room Air 10/01/17 15:00 77 100/67 10/01/17 14:30 79 14 100/54 10/01/17 14:00 80 102/62 10/01/17 13:30 79 109/71 93 Room Air 10/01/17 13:00 79 106/65 91 Room Air 10/01/17 12:36 79 114/63 93 Room Air 10/01/17 12:11 75 100/49 94 Room Air 10/01/17 11:42 75 89/50 96 Room Air 10/01/17 11:10 74 15 99/55 90 Room Air 10/01/17 11:09 91 Room Air 10/01/17 11:06 37.4 74 98/57 93 Room Air 10/01/17 11:02 73 Physical Exam GENERAL: Patient is awake, alert, and in no acute distress. Patient is resting comfortably and showing no signs of anxiety EYES: The conjunctivae are clear. The pupils are round and reactive. EARS, NOSE, MOUTH AND THROAT: The nose is without any evidence of any deformity. Mucous membranes are moist tongue is midline NECK: The neck is nontender and supple. RESPIRATORY: Normal respiratory effort is noted there is no evidence of wheezing rhonchi or rales CARDIOVASCULAR: Regular rate and rhythm noted there no murmurs rubs or gallops normal S1 normal S2 GASTROINTESTINAL: The abdomen is soft. Bowel sounds are present in all quadrants. Abdomen is nontender MUSCULOSKELETAL/EXTREMITIES: There is no evidence of gross deformity full range of motion is noted in the hips and shoulders SKIN: There is no obvious evidence of any rash. There are no petechiae, pallor or cyanosis noted. Ulceration noted on right heel, wound dressing in place. No lymphangitic streaking. NEUROLOGIC: Patient is awake alert and oriented x3 Medical Decision & Procedures ER Provider Diagnostic Interpretation: Radiology results as stated below per my review and radiologist interpretation: SINGLE VIEW CHEST CLINICAL HISTORY: Sepsis. FINDINGS: An AP, portable, upright chest radiograph is compared to study dated 05/13/2017. The examination is degraded by portable technique, large body habitus, and patient rotation. The cardiomediastinal silhouette is unremarkable. There is atherosclerotic calcification of the thoracic aorta. There is chronic elevation of left hemidiaphragm with associated atelectasis. The lungs and pleural spaces are otherwise clear. No pneumothorax is seen. The skeletal structures are osteopenic. The bony thorax is grossly intact. Calcific tendinopathy is noted in the left shoulder. IMPRESSION: No acute cardiopulmonary abnormality. Electronically signed by: Anton Velez M.D. 10/01/2017 12:06 PM Dictated Date/Time: 10/01/2017 12:05 PM Laboratory Results 10/01/17 12:09 Red Blood Count 4.23, Mean Corpuscular Volume 83.0, Mean Corpuscular Hemoglobin 28.1, Mean Corpuscular Hemoglobin Concent 33.9, Mean Platelet Volume 8.8, Neutrophils (%) (Auto) 67.3, Lymphocytes (%) (Auto) 22.0, Monocytes (%) (Auto) 6.1, Eosinophils (%) (Auto) 4.1, Basophils (%) (Auto) 0.1, Neutrophils # (Auto) 4.59, Lymphocytes # (Auto) 1.50, Monocytes # (Auto) 0.42, Eosinophils # (Auto) 0.28, Basophils # (Auto) 0.01 10/01/17 12:09 Test 10/01/17 12:08 10/01/17 12:09 10/01/17 14:15 Bedside Lactic Acid Venous 2.75 mmol/L (0.90-1.70) White Blood Count 6.83 K/uL (4.8-10.8) Red Blood Count 4.23 M/uL (4.2-5.4) Hemoglobin 11.9 g/dL (12.0-16.0) Hematocrit 35.1 % (37-47) Mean Corpuscular Volume 83.0 fL (80-100) Mean Corpuscular Hemoglobin 28.1 pg (25-34) Mean Corpuscular Hemoglobin Concent 33.9 g/dl (32-36) Platelet Count 218 K/uL (130-400) Mean Platelet Volume 8.8 fL (7.4-10.4) Neutrophils (%) (Auto) 67.3 % Lymphocytes (%) (Auto) 22.0 % Monocytes (%) (Auto) 6.1 % Eosinophils (%) (Auto) 4.1 % Basophils (%) (Auto) 0.1 % Neutrophils # (Auto) 4.59 K/uL (1.4-6.5) Lymphocytes # (Auto) 1.50 K/uL (1.2-3.4) Monocytes # (Auto) 0.42 K/uL (0.11-0.59) Eosinophils # (Auto) 0.28 K/uL (0-0.5) Basophils # (Auto) 0.01 K/uL (0-0.2) RDW Standard Deviation 42.5 fL (36.4-46.3) RDW Coefficient of Variation 14.2 % (11.5-14.5) Immature Granulocyte % (Auto) 0.4 % Immature Granulocyte # (Auto) 0.03 K/uL (0.00-0.02) Erythrocyte Sedimentation Rate 15 mm/hr (0-21) Prothrombin Time 64.7 SECONDS (9.0-12.0) Prothromb Time International Ratio 6.4 (0.9-1.1) Activated Partial Thromboplast Time 42.9 SECONDS (21.0-31.0) Partial Thromboplastin Ratio 1.7 Anion Gap 7.0 mmol/L (3-11) Est Creatinine Clear Calc Drug Dose 58.1 ml/min Estimated GFR () 64.0 Estimated GFR (Non- 55.2 BUN/Creatinine Ratio 23.4 (10-20) Calcium Level 8.2 mg/dl (8.5-10.1) Phosphorus Level 2.2 mg/dl (2.5-4.9) Magnesium Level 2.1 mg/dl (1.8-2.4) Total Bilirubin 0.4 mg/dl (0.2-1) Aspartate Amino Transf (AST/SGOT) 12 U/L (15-37) Alanine Aminotransferase (ALT/SGPT) 19 U/L (12-78) Alkaline Phosphatase 90 U/L (45-117) Total Creatine Kinase 50 U/L (26-192) Creatine Kinase MB 0.9 ng/ml (0.5-3.6) Creatine Kinase MB Ratio 1.8 (0-3.0) Troponin I < 0.015 ng/ml (0-0.045) C-Reactive Protein 1.00 mg/dl (0-0.29) Pro-B-Type Natriuretic Peptide 1005 pg/ml (0-900) Total Protein 6.7 gm/dl (6.4-8.2) Albumin 3.1 gm/dl (3.4-5.0) Globulin 3.6 gm/dl (2.5-4.0) Albumin/Globulin Ratio 0.9 (0.9-2) Lipase 209 U/L (73-393) Urine Color YELLOW Urine Appearance CLEAR (CLEAR) Urine pH 5.0 (4.5-7.5) Urine Specific [place] 1.021 (1.000-1.030) Urine Protein 1+ (NEG) Urine Glucose (UA) 3+ (NEG) Urine Ketones NEG (NEG) Urine Occult Blood NEG (NEG) Urine Nitrite NEG (NEG) Urine Bilirubin NEG (NEG) Urine Urobilinogen NEG (NEG) Urine Leukocyte Esterase SMALL (NEG) Urine WBC (Auto) 1-5 /hpf (0-5) Urine RBC (Auto) 0-4 /hpf (0-4) Urine Hyaline Casts (Auto) 1-5 /lpf (0-5) Urine Epithelial Cells (Auto) >30 /lpf (0-5) Urine Bacteria (Auto) NEG (NEG) Laboratory results per my review. Medications Administered Medications (Trade) Dose Ordered Sig/Michael Route Start Time Stop Time Status Last Admin Dose Admin Sodium Chloride 1,000 ml @ 999 mls/hr Q1H1M ONCE IV 10/01/17 11:28 10/01/17 12:28 DC 10/01/17 11:28 999 MLS/HR Oxycodone HCl (Roxicodone Immediate Rel Tab) 5 mg NOW STAT PO 10/01/17 14:04 10/01/17 14:05 DC 10/01/17 14:15 5 MG Diphenhydramine HCl (Benadryl Inj) 25 mg NOW STAT IV 10/01/17 14:40 10/01/17 14:41 DC 10/01/17 14:47 25 MG Methylprednisolone Sodium Succinate (Solu-Medrol IV) 125 mg NOW STAT IV 10/01/17 14:40 10/01/17 14:41 DC 10/01/17 14:47 125 MG Sodium Chloride 1,000 ml @ 999 mls/hr Q1H1M STAT IV 10/01/17 14:40 10/01/17 15:40 DC 10/01/17 14:40 999 MLS/HR Ceftriaxone Sodium (Rocephin Inj) 1 gm NOW STAT IV 10/01/17 15:43 10/01/17 15:44 DC 10/01/17 16:03 1 GM ECG Per My Interpretation Indication: weakness Rate (beats per minute): 71 Rhythm: normal sinus Findings: T-wave inversion (Anterior), no ectopy Change: no significant change (from 05/13/17) ED Course 1127: The patient was evaluated in room C3. A complete history and physical examination were performed. 1128: Ordered Sodium Chloride 1,000 ml @ 999 mls/hr IV. 1404: Ordered Oxycodone HCl 5 mg PO. 1440: Ordered Sodium Chloride 1,000 ml @ 999 mls/hr IV, Methylprednisolone Sodium Succinate 125 mg IV, Benadryl Inj 25 mg IV. Medical Decision Differential diagnosis: Etiologies such as metabolic, infection, hypo/hyperglycemia, electrolyte abnormalities, cardiac sources, intracerebral event, toxicologic, neurologic, as well as others were entertained. Nursing notes reviewed. The patient is a 62-year-old female who presented to the emergency department for an evaluation of generalized weakness. The patient was found to have hypotension. The patient has a history of a right foot ulcer which appears to have some mild cellulitis but I did not feel that it was the cause of her overall condition. I discussed patient's laboratory and radiographic studies with her. Her oxygen level was acceptable but was somewhat below baseline that I was expecting for her. For this reason a CT of the chest was obtained to ensure that her condition was not secondary to a pulmonary embolism. I discussed the patient's laboratory and radiographic studies with her. I also discussed her case with the on-call [facility] hospitalist. They have agreed to evaluate the patient in the emergency department for further management and disposition. The patient was treated with IV fluids and IV antibiotics. Medication Reconcilliation Current Medication List: was personally reviewed by me Blood Pressure Screening Patient's blood pressure: Normal blood pressure Impression Primary Impression: Cellulitis of right lower extremity Additional Impressions: Hypotension Elevated INR Scribe Attestation The scribe's documentation has been prepared under my direction and personally reviewed by me in its entirety. I confirm that the note above accurately reflects all work, treatment, procedures, and medical decision making performed by me. Departure Information Dispostion Being Evaluated By Hospitalist Referrals Shira Ray D.O. (PCP) Patient Instructions My [facility] Problem Qualifiers Additional Impressions: Hypotension Hypotension type: unspecified hypotension type Qualified Codes: I95.9 - Hypotension, unspecified
--- NOTE | 2017-10-01 12:07 | DIAGNOSTIC IMAGING REPORT ---
SINGLE VIEW CHEST CLINICAL HISTORY: Sepsis. FINDINGS: An AP, portable, upright chest radiograph is compared to study dated 05/13/2017. The examination is degraded by portable technique, large body habitus, and patient rotation. The cardiomediastinal silhouette is unremarkable. There is atherosclerotic calcification of the thoracic aorta. There is chronic elevation of left hemidiaphragm with associated atelectasis. The lungs and pleural spaces are otherwise clear. No pneumothorax is seen. The skeletal structures are osteopenic. The bony thorax is grossly intact. Calcific tendinopathy is noted in the left shoulder. IMPRESSION: No acute cardiopulmonary abnormality. Electronically signed by: Anton Velez M.D. 10/01/2017 12:06 PM Dictated Date/Time: 10/01/2017 12:05 PM
[2017-10-01 12:25] LABS: BASO % 0.1 %; BASO ABS # 0.01 K/uL (0-0.2); EOS % 4.1 %; EOS ABS # 0.28 K/uL (0-0.5); HEMATOCRIT 35.1 % (37-47); HEMOGLOBIN 11.9 g/dL (12.0-16.0); IG# 0.03 K/uL (0.00-0.02); MEAN CORPUSCULAR HEMOGLOBIN 28.1 pg (25-34); MEAN CORPUSCULAR HGB CONC 33.9 g/dl (32-36); MEAN PLATELET VOLUME 8.8 fL (7.4-10.4); MONO % 6.1 %; MONO ABS # 0.42 K/uL (0.11-0.59); NEUT % 67.3 %; NEUT ABS # 4.59 K/uL (1.4-6.5); PLATELET COUNT 218 K/uL (130-400); RED CELL DISTRIBUTION WIDTH CV 14.2 % (11.5-14.5); RED CELL DISTRIBUTION WIDTH SD 42.5 fL (36.4-46.3); WHITE BLOOD COUNT 6.83 K/uL (4.8-10.8)
[2017-10-01 12:43] LABS: ALBUMIN 3.1 gm/dl (3.4-5.0); ALT/SGPT 19 U/L (12-78); AST/SGOT 12 U/L (15-37); BLOOD UREA NITROGEN 25 mg/dl (7-18); CALCIUM 8.2 mg/dl (8.5-10.1); CARBON DIOXIDE 25 mmol/L (21-32); CREATININE 1.07 mg/dl (0.60-1.20); GLUCOSE 94 mg/dl (70-99); LIPASE 209 U/L (73-393); POTASSIUM 3.9 mmol/L (3.5-5.1); SODIUM 137 mmol/L (136-145)
[2017-10-01 12:45] LABS: PTT PATIENT 42.9 SECONDS (21.0-31.0)
[2017-10-01 12:50] LABS: ALKALINE PHOSPHATASE 90 U/L (45-117); CKMB 0.9 ng/ml (0.5-3.6); PHOSPHORUS 2.2 mg/dl (2.5-4.9); TOTAL PROTEIN 6.7 gm/dl (6.4-8.2)
[2017-10-01 12:58] LABS: INR 6.4 (0.9-1.1)
[2017-10-01] MEDS ORDERED: OXYCODONE HCL IR 5 MG TAB (IMMEDIATE RELEASE) PO STA (14:04)
[2017-10-01] MEDS ORDERED: METHYLPREDNISOLONE 125 MG VIAL IV STA (14:40)
[2017-10-01] MEDS ORDERED: DiphenhydrAMINE HCL 50 MG/ML VIAL IV STA (14:40)
[2017-10-01] MEDS ORDERED: SODIUM CHLORIDE 0.9% 1000ML 1,000 ML IV STA (14:40)
[2017-10-01] MEDS ORDERED: OPTIRAY 320 IV PRN (14:45)
--- NOTE | 2017-10-01 15:30 | DIAGNOSTIC IMAGING REPORT ---
CT ANGIOGRAM OF THE CHEST CLINICAL HISTORY: Atypical chest pain. COMPARISON STUDY: Chest CT scans dated 11/08/2015 and 06/14/2014. TECHNIQUE: Following the IV administration of 86 cc of Optiray 320, CT angiogram of the chest was performed from the upper abdomen to the thoracic inlet utilizing the pulmonary embolus protocol. Images are reviewed in the axial, sagittal, and coronal planes. 3-D MIPS images are created and assessed. IV contrast was administered without complication. A dose lowering technique was utilized adhering to the principles of ALARA. CT DOSE: 413.05 mGy.cm FINDINGS: Thyroid: Imaged portions of the thyroid gland are normal in size and attenuation. Thoracic aorta: The thoracic aorta is normal in caliber and demonstrates standard 3-vessel arch anatomy. No dissection is seen. Pulmonary vasculature: The pulmonary trunk is normal in caliber. There are no filling defects identified in main, lobar, or segmental pulmonary branches to suggest pulmonary embolus. Heart: The heart is normal in size and configuration, and without pericardial effusion. Lungs and pleural spaces: Evaluation of the lung parenchyma is degraded by motion artifact. No airspace consolidation or pleural effusion is identified. Dependent atelectasis is present at both lung bases. The trachea and central airways are clear. Mediastinum: There is no mediastinal lymphadenopathy. Rose: Clear. Axillae: There is no axillary lymphadenopathy. Upper abdomen: There is a tiny hiatal hernia. Partially visualized upper abdominal viscera is otherwise within normal limits. Skeletal structures: The skeletal structures are osteopenic. Degenerative change is noted in the shoulders and thoracic spine. No lytic or blastic bony lesions are seen. IMPRESSION: 1. There is no evidence of pulmonary embolus in the main, lobar, or segmental pulmonary arteries. 2. There is no airspace consolidation or pleural effusion. Electronically signed by: Anton Velez M.D. 10/01/2017 3:28 PM Dictated Date/Time: 10/01/2017 3:25 PM
[2017-10-01] MEDS ORDERED: CEFTRIAXONE SOD INJ 1 GM ADDVIAL IV STA (15:43)
[2017-10-01 17:14] VITALS: BP 122/68; PULSE 73; O2SAT 94; BMI 33.5
[2017-10-01] MEDS ORDERED: LORAZEPAM 0.5 MG TAB PO PRN (17:15)
[2017-10-01] MEDS ORDERED: DOCUSATE SODIUM/SENNA 50/8.6MG TAB PO PRN (17:15)
[2017-10-01] MEDS ORDERED: SODIUM CHLORIDE 0.9% 1000ML 1,000 ML IV SCH (17:15)
[2017-10-01] MEDS ORDERED: ONDANSETRON 4 MG TAB PO PRN (17:30)
[2017-10-01] MEDS ORDERED: CEFTRIAXONE SOD INJ 1 GM in DEXTROSE 5% ADD-VANTAGE 50ML 50 ML IV STA (17:41)
[2017-10-01] MEDS ORDERED: GLUCOSE 40% GEL 15 GM TUBE PO PRN (18:00)
[2017-10-01] MEDS ORDERED: DEXTROSE 50% 50 ML SYR IV PRN (18:00)
[2017-10-01] MEDS ORDERED: GLUCOSE 10 TABS/TUBE PO PRN (18:00)
[2017-10-01] MEDS ORDERED: GLUCAGON FOR INJ 1 MG VIAL SQ PRN (18:00)
[2017-10-01] MEDS ORDERED: OXYCODONE/ACETAMINOPHEN 5-325 TAB ONE (18:25)
[2017-10-01] MEDS ORDERED: IV FLUIDS COMPLETED PRN (19:00)
[2017-10-01 19:41] VITALS: BP 122/68; PULSE 73; TEMP 37.4; O2SAT 94
--- NOTE | 2017-10-01 19:47 | History and Physical ---
History & Physical Date & Time of Service: Oct 01, 2017 at 19:40 Chief Complaint: Cellulitis Of Right Lower Extremity, Elevated Inr, Primary Care Physician: Shira Ray D.O. History of Present Illness Source: patient As per patient and ER physician, patient was at wound care clinic when she felt lightheaded. There was no apparent loss of consciousness. However, patient's blood pressure was low and sent to the ED. No apparent respiratory distress. Patient had workup which included CTA of lungs, methylprednisone was given to prevent intolerance or reactions to the IV contrast. There was no PE on CTA scan. Patient also reports that she is known to vascular outpatient clinic for poor pulses of the left foot, also left foot ulcer. As per ED physician, there is low suspicion for infectious process. Patient did not feel well enough after IV fluids to leave the ED. Patient's blood pressure also low normal limits after IV fluids. Labs remarkable for INR of 6.4. Patient is on couamdin at home Past Medical/Surgical History Medical Problems: (1) Anxiety Status: Chronic (2) Bilateral pulmonary embolism Status: Resolved (3) Depression Status: Chronic (4) Diabetes Status: Chronic (5) Hyperlipidemia Status: Chronic (6) Hypertension Status: Chronic (7) Ovarian cancer Status: Chronic (8) UTI (urinary tract infection) Status: Chronic Surgical Problems: (1) H/O total hip arthroplasty Status: Resolved (2) History of appendectomy Status: Resolved (3) History of cholecystectomy Status: Resolved (4) History of hysterectomy with oophorectomy Status: Resolved (5) Left femur ORIF Status: Resolved Family History FHx: diabetes FHx: heart disease FHx: kidney stones FHx: ovarian cancer Hypertension Social History Smoking Status: Never Smoker Drug Use: none Marital Status: single Occupational Status: retired Immunizations History of Influenza Vaccine: N/A History of Tetanus Vaccine?: Unknown History of Pneumococcal: Yes History of Hepatitis B Vaccine: No Multi-Drug Resistant Organisms History of MDRO: No Allergies Coded Allergies: Sulfa Antibiotics (Verified Allergy, Unknown, GI SYMPTOMS, 09/24/17) Clarithromycin (Verified Adverse Reaction, Intermediate, GI SYMPTOMS, 05/13) Iodinated Diagnostic Agents (Unverified Adverse Reaction, Unknown, CONTRAST-"COULDN'T FUNCTION", 05/13/17) Home Medications Scheduled Amino Acids (Amino Acids Complex), 1 TAB PO DAILY Aspirin (Aspirin Ec), 81 MG PO DAILY Atorvastatin (Lipitor), 40 MG PO DAILY Bupropion (Wellbutrin Sr), 150 MG PO BID Clopidogrel Bisulfate (Plavix), 75 MG PO DAILY Cyanocobalamin (Vitamin B-12), 500 MCG SL DAILY Ergocalciferol (Vitamin D 98845 Unit), 1 CAP PO WK Fluticasone Propionate (Nasal) (Flonase Allergy Relief), 2 SPRAY HOLLAND DAILY Insulin Aspart 70/30 (Novolog Mix 70/30), 50 UNITS SC QAM Insulin Aspart 70/30 (Novolog Mix 70/30), 40 UNITS SC QPM Isosorbide Mononitrate Ext Rel (Imdur Ext Rel), 30 MG PO QAM Losartan Potassium (Cozaar), 100 MG PO DAILY Magnesium Oxide (Magnesium), 400 MG PO DAILY Metformin Hcl (Metformin Hcl Er), 500 MG PO BID Metoprolol Tartrate (Lopressor) (Lopressor), 25 MG PO BID Pantoprazole (Protonix), 40 MG PO DAILY Psyllium (Metamucil Free & Natural), 1 DOSE PO DIRECTED Trazodone Hcl (Desyrel), 150 MG PO HS Warfarin Sod (Jantoven), 5 MG PO 4XWK Warfarin Sod (Jantoven), 7.5 MG PO MWF Scheduled PRN Artificial Tear Solution (Tears Naturale), 1 DROP OPB Q2H PRN for EYE DRYNESS Lorazepam (Ativan), 0.5 MG PO TID PRN for Anxiety/Agitation Methocarbamol (Robaxin), 500 MG PO TID PRN for Muscle Spasms Ondansetron Hcl (Zofran), 4 MG PO Q6H PRN for Nausea Oxycodone/Acetaminophen 5MG/325MG (Percocet 5MG/325MG), 1 TABLET PO Q4H PRN for Pain Polyethylene Glycol 3350 (Miralax), 17 GM PO DAILY PRN for Constipation Senna/Docusate Sod (Senokot S), 2-4 TAB PO DAILY PRN for Constipation Tramadol (Ultram), 50 MG PO Q6H PRN for Pain Review of Systems Constitutional: No fever Eyes: No worsening of vision ENT: No hearing loss Respiratory: No cough, No sputum, No wheezing, No shortness of breath, No dyspnea on exertion, No dyspnea at rest Cardiovascular: No chest pain, No edema, No palpitations Abdomen: No pain, No nausea, No vomiting Musculoskeletal: + problem reported (left leg pain, left foot ulcer) Genitourinary - Female: No dysuria Neurologic: No paralysis Hematologic / Lymphatic: No abnormal bleeding/bruising Physical Exam Vital Signs Date Time Temp Pulse Resp B/P (MAP) Pulse Ox O2 Delivery O2 Flow Rate FiO2 10/01/17 17:14 73 20 122/68 94 Room Air 10/01/17 17:13 73 102/64 98 10/01/17 16:30 72 102/64 95 Room Air 10/01/17 15:31 79 16 99/59 93 Room Air 10/01/17 15:00 77 100/67 10/01/17 14:30 79 14 100/54 10/01/17 14:00 80 102/62 10/01/17 13:30 79 109/71 93 Room Air 10/01/17 13:00 79 106/65 91 Room Air 10/01/17 12:36 79 114/63 93 Room Air 10/01/17 12:11 75 100/49 94 Room Air 10/01/17 11:42 75 89/50 96 Room Air 10/01/17 11:10 74 15 99/55 90 Room Air 10/01/17 11:09 91 Room Air 10/01/17 11:06 37.4 74 98/57 93 Room Air 10/01/17 11:02 73 General Appearance: no apparent distress Head: normocephalic, atraumatic Eyes: normal inspection, EOMI, sclerae normal ENT: normal ENT inspection, hearing grossly normal, pharynx normal Neck: supple, no JVD, trachea midline Respiratory/Chest: chest non-tender, lungs clear, normal breath sounds, no respiratory distress, no accessory muscle use Cardiovascular: regular rate, rhythm, no edema, + abnormal peripheral pulses ( dminish left lower extremity pedal pulse) Abdomen/GI: normal bowel sounds, non tender, soft, no organomegaly, no pulsatile mass Back: normal inspection, no muscle spasm, normal range of motion Extremities/Musculoskelatal: normal inspection, + calf tenderness (reports left calf tenderness) Neurologic/Psych: alert, oriented x 3 Skin: + pertinent finding (left leg in dressing) Diagnostics Laboratory Results Results Past 24 Hours Test 10/01/17 12:08 10/01/17 12:09 10/01/17 14:15 10/01/17 17:33 Range/Units Bedside Lactic Acid Venous 2.75 0.90-1.70 mmol/L White Blood Count 6.83 4.8-10.8 K/uL Red Blood Count 4.23 4.2-5.4 M/uL Hemoglobin 11.9 12.0-16.0 g/dL Hematocrit 35.1 37-47 % Mean Corpuscular Volume 83.0 80-100 fL Mean Corpuscular Hemoglobin 28.1 25-34 pg Mean Corpuscular Hemoglobin Concent 33.9 32-36 g/dl Platelet Count 218 130-400 K/uL Mean Platelet Volume 8.8 7.4-10.4 fL Neutrophils (%) (Auto) 67.3 % Lymphocytes (%) (Auto) 22.0 % Monocytes (%) (Auto) 6.1 % Eosinophils (%) (Auto) 4.1 % Basophils (%) (Auto) 0.1 % Neutrophils # (Auto) 4.59 1.4-6.5 K/uL Lymphocytes # (Auto) 1.50 1.2-3.4 K/uL Monocytes # (Auto) 0.42 0.11-0.59 K/uL Eosinophils # (Auto) 0.28 0-0.5 K/uL Basophils # (Auto) 0.01 0-0.2 K/uL RDW Standard Deviation 42.5 36.4-46.3 fL RDW Coefficient of Variation 14.2 11.5-14.5 % Immature Granulocyte % (Auto) 0.4 % Immature Granulocyte # (Auto) 0.03 0.00-0.02 K/uL Erythrocyte Sedimentation Rate 15 0-21 mm/hr Prothrombin Time 64.7 9.0-12.0 SECONDS Prothromb Time International Ratio 6.4 0.9-1.1 Activated Partial Thromboplast Time 42.9 21.0-31.0 SECONDS Partial Thromboplastin Ratio 1.7 Sodium Level 137 136-145 mmol/L Potassium Level 3.9 3.5-5.1 mmol/L Chloride Level 106 98-107 mmol/L Carbon Dioxide Level 25 21-32 mmol/L Anion Gap 7.0 3-11 mmol/L Blood Urea Nitrogen 25 7-18 mg/dl Creatinine 1.07 0.60-1.20 mg/dl Est Creatinine Clear Calc Drug Dose 58.1 ml/min Estimated GFR () 64.0 Estimated GFR (Non- 55.2 BUN/Creatinine Ratio 23.4 10-20 Random Glucose 94 70-99 mg/dl Calcium Level 8.2 8.5-10.1 mg/dl Phosphorus Level 2.2 2.5-4.9 mg/dl Magnesium Level 2.1 1.8-2.4 mg/dl Total Bilirubin 0.4 0.2-1 mg/dl Aspartate Amino Transf (AST/SGOT) 12 15-37 U/L Alanine Aminotransferase (ALT/SGPT) 19 12-78 U/L Alkaline Phosphatase 90 45-117 U/L Total Creatine Kinase 50 26-192 U/L Creatine Kinase MB 0.9 0.5-3.6 ng/ml Creatine Kinase MB Ratio 1.8 0-3.0 Troponin I < 0.015 0-0.045 ng/ml C-Reactive Protein 1.00 0-0.29 mg/dl Pro-B-Type Natriuretic Peptide 1005 0-900 pg/ml Total Protein 6.7 6.4-8.2 gm/dl Albumin 3.1 3.4-5.0 gm/dl Globulin 3.6 2.5-4.0 gm/dl Albumin/Globulin Ratio 0.9 0.9-2 Lipase 209 73-393 U/L Urine Color YELLOW Urine Appearance CLEAR CLEAR Urine pH 5.0 4.5-7.5 Urine Specific [place] 1.021 1.000-1.030 Urine Protein 1+ NEG Urine Glucose (UA) 3+ NEG Urine Ketones NEG NEG Urine Occult Blood NEG NEG Urine Nitrite NEG NEG Urine Bilirubin NEG NEG Urine Urobilinogen NEG NEG Urine Leukocyte Esterase SMALL NEG Urine WBC (Auto) 1-5 0-5 /hpf Urine RBC (Auto) 0-4 0-4 /hpf Urine Hyaline Casts (Auto) 1-5 0-5 /lpf Urine Epithelial Cells (Auto) >30 0-5 /lpf Urine Bacteria (Auto) NEG NEG Bedside Glucose 155 70-90 mg/dl Test 10/01/17 17:37 Range/Units Lactic Acid Level 1.4 0.4-2.0 mmol/L Microbiology Results 10/01/17 Blood Culture, Received Pending 10/01/17 Blood Culture, Received Pending 10/01/17 Blood Culture, Received Pending 10/01/17 Blood Culture, Received Pending Diagnostic Radiology CXR: No acute cardiopulmonary abnormality CTA: 1. There is no evidence of pulmonary embolus in the main, lobar, or segmental pulmonary arteries. 2. There is no airspace consolidation or pleural effusion. CXR normal EKG NSR 71 bpm Impression Assessment and Plan Hypotension vs low normal blood pressure nonfebrile low blood pressure may not likely be due to infectious organism however blood cultures drawn and empirically given ceftriaxone because history of lower left extremity ulcer hold home dose losartan, give IV fluids likely has history of PAD, patient was scheduled for outpatient vascular follow up in October 2017 poor left lower extremity pulses continue aspirin and plavix pain medications ultrasound lower extremity to rule out DVT Other cardiovascular medications: continue imdur History of diabetes at home uses 70/30 insulin as 50 units BID will continue for now as 30 units BID with sliding scale while monitoring patient overnight hold oral hyperglycemic medication past medical history of PE On coumadin at home hold coaudmin as INR level is 6.4 and supratherapeutic trend INR DVT ppx: INR level if supratherapeutic Level of Care Med/Surg Advanced Directives Existing Living Will: No Existing Power of Pediatric Physical Therapy Assistant: No Resuscitation Status FULL RESUSCITATION VTE Prophylaxis VTE Risk Assessment Done? Y/N: Yes Risk Level: Moderate Given or contraindicated: Warfarin (Coumadin)
[2017-10-01 20:29] VITALS: BP 121/74; PULSE 75; TEMP 37.4; O2SAT 93
[2017-10-01] MEDS: SODIUM CHLORIDE 0.9% 1000ML 1,000 ML IV SCH (20:52)
[2017-10-01] MEDS: BuPROPion SR 150 MG TABCR PO SCH (20:53)
[2017-10-01] MEDS: METOPROLOL TARTRATE 25 MG TAB PO SCH (20:54)
[2017-10-01] MEDS: OXYCODONE/ACETAMINOPHEN 5-325 TAB PO PRN ×2 (21:01→22:35)
[2017-10-01] MEDS: INSULIN ASPART 100 UNITS/ML 3 ML PEN SC SCH (21:28)
[2017-10-02 00:22] VITALS: BP 137/78; PULSE 77; TEMP 36.9; O2SAT 91
[2017-10-02 07:13] VITALS: BP_SYST 108; BP_SYST 154; BP_DIAS 67; BP_DIAS 93; PULSE 83; TEMP 36.8; O2SAT 90; O2SAT 93
--- NOTE | 2017-10-02 07:16 | DIAGNOSTIC IMAGING REPORT ---
ULTRASOUND BILATERAL LOWER EXTREMITY VENOUS CLINICAL HISTORY: Lower extremity edema. COMPARISON STUDY: Bilateral lower extremity venous ultrasound dated 11/13/2015. TECHNIQUE: Real-time, grayscale, and color Doppler sonography of the deep veins of the right and left lower extremity was performed from the inguinal crease to the calf. Compression and augmentation were utilized. FINDINGS: Right lower extremity: The common femoral and superficial femoral veins are patent and normally compressible. There are 2 popliteal veins. One of these is small and noncompressible, likely representing age indeterminant deep venous thrombosis. The greater saphenous vein and the profunda femoris vein at the junction with the common femoral vein are clear. There is broken flow identified within the posterior tibial and probably veins which may represent trace age indeterminant thrombus. Left lower extremity: There is no sonographic evidence of above knee deep venous thrombosis identified in the left lower extremity. The common femoral, superficial femoral, and popliteal veins are patent and normally compressible. The greater saphenous vein and the profunda femoris vein at the junction with the common femoral vein are clear. There is broken flow within the posterior tibial and peroneal veins, likely representing age indeterminant thrombus. A popliteal cyst containing an internal calcification measures 4.0 x 0.8 x 2.6 cm. IMPRESSION: 1. There is age indeterminant and possibly chronic thrombus identified within 1 of 2 peritoneal right popliteal veins. 2. There is age indeterminant and possibly chronic thrombus present within the calf vessels bilaterally. 3. Left-sided popliteal cyst. Electronically signed by: Anton Velez M.D. 10/02/2017 7:15 AM Dictated Date/Time: 10/02/2017 7:12 AM
[2017-10-02 07:57] LABS: HEMOGLOBIN 12.2 g/dL (12.0-16.0); IG# 0.01 K/uL (0.00-0.02); LYMPH ABS # 0.85 K/uL (1.2-3.4); MEAN CELL VOLUME 85.1 fL (80-100); MEAN CORPUSCULAR HEMOGLOBIN 28.8 pg (25-34); MEAN CORPUSCULAR HGB CONC 33.9 g/dl (32-36); MEAN PLATELET VOLUME 9.5 fL (7.4-10.4); MONO % 2.7 %; MONO ABS # 0.12 K/uL (0.11-0.59); NEUT % 78.1 %; NEUT ABS # 3.49 K/uL (1.4-6.5); PLATELET COUNT 221 K/uL (130-400); RED CELL DISTRIBUTION WIDTH CV 14.4 % (11.5-14.5); RED CELL DISTRIBUTION WIDTH SD 44.7 fL (36.4-46.3); WHITE BLOOD COUNT 4.47 K/uL (4.8-10.8)
[2017-10-02] MEDS ORDERED: ATORVASTATIN 40 MG TAB PO SCH (08:00)
[2017-10-02] MEDS ORDERED: ISOSORBIDE MONONITRATE 30 MG TABCR PO SCH (08:00)
[2017-10-02] MEDS ORDERED: PANTOprazole SOD 40 MG TAB PO SCH (08:00)
[2017-10-02] MEDS ORDERED: ASPIRIN 81 MG ECTAB PO SCH (08:00)
[2017-10-02] MEDS ORDERED: INSULIN 70% ASPART PROTAMINE/30% ASPART SC SCH ×3 (08:00→17:00)
[2017-10-02] MEDS ORDERED: CYANOCOBALAMIN 500 MCG TAB (VIT B-12) PEG SCH (08:00)
[2017-10-02] MEDS ORDERED: CLOPIDOGREL BISULFATE 75 MG TAB PO SCH (08:00)
[2017-10-02] MEDS ORDERED: NURSING VERBAL MED ORDER ONE ×2 (08:00→12:00)
[2017-10-02 08:10] LABS: INR 5.2 (0.9-1.1)
[2017-10-02] MEDS: BuPROPion SR 150 MG TABCR PO SCH (08:29)
[2017-10-02] MEDS: METOPROLOL TARTRATE 25 MG TAB PO SCH (08:31)
[2017-10-02] MEDS: SODIUM CHLORIDE 0.9% 1000ML 1,000 ML IV SCH (08:32)
[2017-10-02] MEDS: INSULIN ASPART 100 UNITS/ML 3 ML PEN SC SCH ×3 (08:37→18:08)
[2017-10-02 08:42] LABS: ALBUMIN 3.2 gm/dl (3.4-5.0); CALCIUM 8.9 mg/dl (8.5-10.1); CREATININE 1.14 mg/dl (0.60-1.20); POTASSIUM 5.4 mmol/L (3.5-5.1); TOTAL PROTEIN 7.1 gm/dl (6.4-8.2)
[2017-10-02 09:07] VITALS: O2SAT 93
[2017-10-02 09:21] LABS: HEMOGLOBIN A1C 12.9 % (4.5-5.6)
--- NOTE | 2017-10-02 10:22 | Surgery Consultation ---
Consultation Date of Service Oct 02, 2017. Chief Complaint PAD with ulcers, LLE History of Present Illness The patient is a 62 year old female wiht hx of CAD, DMII, admitted with orthostasis and near syncope, seen in consultation today for PAD with ulcers of LLE. Pt states she noted pain in L heel and great toe joint about 1 month ago, worse when lying in bed. States she then developed 2 small open areas at those locations and called her physician, who set her up to see the [facility] for wound care, whom she saw twice. States wounds do not appear to be getting worse, but was also set up to see [facility] vascular surgery at [facility] on 10/12/17. Has not seen them yet. Pt admits intermittent pain in L thigh and calf, sometimes while sitting or lying, sometimes with walking. Worst pain when walking is in L foot wounds. Denies ALFONSO, fever, chills, chest pain, SOB, abd pain, N/V, rest pain, other complaints. No arterial US performed yet. Vitals Vital Signs Past 12 Hours Date Time Temp Pulse Resp B/P (MAP) Pulse Ox O2 Delivery O2 Flow Rate FiO2 10/02/17 09:07 93 Room Air 10/02/17 07:13 36.8 83 20 154/93 (113) 93 Room Air 10/02/17 00:22 36.9 77 18 137/78 (97) 91 Room Air 10/02/17 00:05 Room Air Allergies Coded Allergies: Sulfa Antibiotics (Verified Allergy, Unknown, GI SYMPTOMS, 09/24/17) Clarithromycin (Verified Adverse Reaction, Intermediate, GI SYMPTOMS, 05/13) Iodinated Diagnostic Agents (Unverified Adverse Reaction, Unknown, CONTRAST-"COULDN'T FUNCTION", 05/13/17) Home Medications Scheduled Amino Acids (Amino Acids Complex), 1 TAB PO DAILY Aspirin (Aspirin Ec), 81 MG PO DAILY Atorvastatin (Lipitor), 40 MG PO DAILY Bupropion (Wellbutrin Sr), 150 MG PO BID Clopidogrel Bisulfate (Plavix), 75 MG PO DAILY Cyanocobalamin (Vitamin B-12), 500 MCG SL DAILY Ergocalciferol (Vitamin D 37262 Unit), 1 CAP PO WK Fluticasone Propionate (Nasal) (Flonase Allergy Relief), 2 SPRAY HOLLAND DAILY Insulin Aspart 70/30 (Novolog Mix 70/30), 50 UNITS SC QAM Insulin Aspart 70/30 (Novolog Mix 70/30), 40 UNITS SC QPM Isosorbide Mononitrate Ext Rel (Imdur Ext Rel), 30 MG PO QAM Losartan Potassium (Cozaar), 100 MG PO DAILY Magnesium Oxide (Magnesium), 400 MG PO DAILY Metformin Hcl (Metformin Hcl Er), 500 MG PO BID Metoprolol Tartrate (Lopressor) (Lopressor), 25 MG PO BID Pantoprazole (Protonix), 40 MG PO DAILY Psyllium (Metamucil Free & Natural), 1 DOSE PO DIRECTED Trazodone Hcl (Desyrel), 150 MG PO HS Warfarin Sod (Jantoven), 5 MG PO 4XWK Warfarin Sod (Jantoven), 7.5 MG PO MWF Scheduled PRN Artificial Tear Solution (Tears Naturale), 1 DROP OPB Q2H PRN for EYE DRYNESS Lorazepam (Ativan), 0.5 MG PO TID PRN for Anxiety/Agitation Methocarbamol (Robaxin), 500 MG PO TID PRN for Muscle Spasms Ondansetron Hcl (Zofran), 4 MG PO Q6H PRN for Nausea Oxycodone/Acetaminophen 5MG/325MG (Percocet 5MG/325MG), 1 TABLET PO Q4H PRN for Pain Polyethylene Glycol 3350 (Miralax), 17 GM PO DAILY PRN for Constipation Senna/Docusate Sod (Senokot S), 2-4 TAB PO DAILY PRN for Constipation Tramadol (Ultram), 50 MG PO Q6H PRN for Pain Problem List Medical Problems: (1) Anxiety (2) Bilateral pulmonary embolism (3) CAD,coronary artery stent (4) Depression (5) Diabetes (6) Hyperlipidemia (7) Hypertension (8) Ovarian cancer (9) UTI (urinary tract infection) Surgical Problems: (1) H/O total hip arthroplasty (2) History of appendectomy (3) History of cholecystectomy (4) History of hysterectomy with oophorectomy (5) Left femur ORIF Surgical / Medical History Hx Cardiac Surgery: No Hx Abdominal Surgery: Yes (appendectomy, cholecystectomy, hysterectomy) Hx Cancer Surgery: No Hx Thoracic Surgery: No Hx Orthopedic: Yes (R tib/fib, R hip arthroplasty, L femur ORIF) Hx Urinary Tract Surgery: No HX Other Surgery: No Past Medical/Surgical History: Diabetes, Heart Disease, Hypertension, Kidney Disease, Reflux Family History FHx: diabetes FHx: heart disease FHx: kidney stones FHx: ovarian cancer Hypertension Social History Smoking Status: Never Smoker Hx Tobacco Use In Past Year?: No Hx Alcohol Use - Type & Amnt: No Hx Substance Use -Type & Amnt: No Review of Systems Constitutional: + malaise, No chills, No fever Skin: No change in color Eyes: No visual changes ENMT: No sore throat Respiratory: No cough, No JOVEL, No hemoptysis, No short of breath Cardiovascular: No chest pain, No palpitations, No syncope, No edema, No intermittent claudication Gastrointestinal: No abdominal pain, No nausea, No vomiting Neurologic: + dizziness, No lethargy, No numbness, No tingling Physical Exam Constitutional: General Apperance: obese Level of Distress: NAD, chronically ill Psychiatric: Mental Status: active & alert, normal mood, normal affect Orientation: oriented except where noted, to time, to place, to person Memory: recent memory normal, remote memory normal Head: normocephalic, atraumatic Eyes: EOM: EOMI ENMT: normal ENT inspection, hearing grossly normal Neck: supple, trachea midline Lungs: Respiratory effort: no dyspnea Auscultation: no rales/crackles, no rhonchi Cardiovascular: Apical Impulse: not displaced Heart Auscultation: RRR, no rubs, no gallops Peripheral Pulses: Pulses: full and equal, in all extremities except if noted Bruits: none appreciated Carotid Pulse: normal on the left, normal on the right Brachial Pulses: normal on the left, normal on the right Radial Pulse: normal on the left, normal on the right Femoral Pulse: normal on the left, normal on the right Posterior Tibialis Pulse: pertinent finding (nonpalpable LLE, +1 RLE) Dorsalis Pedis Pulse: pertinent finding (nonpalpable BLE) Abdomen: Bowel Sounds: normal Inspection & Palpation: soft, non-distended, no tenderness, guarding & rebound Musculoskeletal: normal strength (5/5 throughout), normal tone Extremities: Upper Right: no cyanosis, no edema, no varicosities Upper Left: no cyanosis, no edema, no varicosities Lower Right: no cyanosis, no edema, no varicosities Lower Left: no cyanosis, no edema, no varicosities, pertinent finding (L medial heel shallow ulceration, MTP joint shallow ulcer. + tenderness, no fluctuance. ) Neurologic: Cranial Nerves: grossly intact Sensation: grossly intact Assessment and Plan ASSESSMENT and PLAN: PAD with ulcerations LLE Pt discussed with Dr Salgado, recommends arterial US done today and then make further recommendations. Likely ok to f/u with [facility] surgery outpt, but will eval arterial US first.
[2017-10-02] MEDS: OXYCODONE/ACETAMINOPHEN 5-325 TAB PO PRN (10:26)
[2017-10-02 12:00] VITALS: Ht 157.5 cm; Wt 83.0 kg
[2017-10-02] MEDS ORDERED: PHARMACY GLYCEMIC MGMT CONSULT PRN (12:30)
[2017-10-02] MEDS ORDERED: INSULIN HUMAN REGULAR PER UNIT 5 UNITS in SYRINGE 4.95 ML IV SCH (12:45)
--- NOTE | 2017-10-02 12:45 | Pharmacy Progress Note ---
Glycemic Control Intl Consult Date of Service Oct 02, 2017. Scope Glycemic Pharmacist consulted by Dr Anne on 10/02/17 for glycemic control and to write orders per [facility] inpatient glycemic control protocol Objective Weight (Kilograms): 83.000 Accuchecks BSG (last 24hrs): Test 10/01/17 17:33 10/01/17 21:00 10/02/17 07:30 10/02/17 07:33 Bedside Glucose 155 mg/dl (70-90) 299 mg/dl (70-90) 388 mg/dl (70-90) Random Glucose 410 mg/dl (70-99) Laboratory Data (last 24hrs) Test 10/02/17 07:30 Anion Gap 9.0 mmol/L BUN/Creatinine Ratio 20.9 Blood Urea Nitrogen 24 mg/dl Creatinine 1.14 mg/dl Hemoglobin A1c 12.9 % Potassium Level 5.4 mmol/L Sodium Level 134 mmol/L White Blood Count 4.47 K/uL Red Blood Count 4.23 M/uL Hemoglobin 12.2 g/dL Hematocrit 36.0 % Mean Corpuscular Volume 85.1 fL Mean Corpuscular Hemoglobin 28.8 pg Mean Corpuscular Hemoglobin Concent 33.9 g/dl Platelet Count 221 K/uL Mean Platelet Volume 9.5 fL Neutrophils (%) (Auto) 78.1 % Lymphocytes (%) (Auto) 19.0 % Monocytes (%) (Auto) 2.7 % Eosinophils (%) (Auto) 0.0 % Basophils (%) (Auto) 0.0 % Neutrophils # (Auto) 3.49 K/uL Lymphocytes # (Auto) 0.85 K/uL Monocytes # (Auto) 0.12 K/uL Eosinophils # (Auto) 0.00 K/uL Basophils # (Auto) 0.00 K/uL HbA1c Test 10/02/17 07:30 Hemoglobin A1c 12.9 % (4.5-5.6) H Recent Pertinent Medications Outpatient Anti-diabetic Regimen: * Novolog 70/30 - 50 units SQ QAM & 40 units SQ with dinner * A1c = 12.9 % 10/02/17 The patient is currently receiving: * Basal & Prandial insulin: Novolog 70/30 - 50 units SQ BID with meals - pt missed dose last night * Correctional Insulin: Novolog Correction per scale ACHS Goal Range: Low 140 mg/dL - High 180 mg/dL Correction Factor: 20 mg/dL/unit Risk Factors for Insulin Resistance: * Steroids: Solu-medrol 125mg IV x 1 dose in ER yesterday at 1447 * Infection: IV Rocephin * Diet: Type 2 DM Assessment & Plan ASSESSMENT: * 62 year old uncontrolled type 2 diabetic with sustained hyperglycemia today d/ t IV Solu-medrol yesterday and no 70/30 dose last night * Novolog 70/30 restarted this morning, pt known to glycemic service from admission last year * Will tighten CF and give IV dose of Regular insulin to help return to euglycemia * Check BSG overnight, tighten goal range. PLAN FOR INPATIENT GLYCEMIC CONTROL: * Holding outpatient oral diabetes medications * Regular insulin 5 units IV x1 dose now * Basal/prandial insulin with Novolog 70/30 50 units SQ BID with meals * Correctional Insulin with NOVOLOG per scale ACHS or Q6hrs while NPO and overnight at 0200 tonight * Goal Range: Low 110 mg/dL - High 140 mg/dL * Correction Factor: 12 mg/dL/unit * Please note that the plan above was derived based on current level of insulin resistance and hospital stress. These recommendations are appropriate for inpatient admission only. Plan of care upon discharge will need to be reassessed to avoid potential outpatient hypo/hyperglycemia. Thank you.
[2017-10-02] MEDS ORDERED: CEFTRIAXONE SOD INJ 1 GM in DEXTROSE 5% ADD-VANTAGE 50ML 50 ML IV SCH (14:00)
--- NOTE | 2017-10-02 14:00 | DIAGNOSTIC IMAGING REPORT ---
LEFT LOWER EXTREMITY ARTERIAL DOPPLER ULTRASOUND CLINICAL HISTORY: Peripheral arterial disease with ulcers. COMPARISON STUDY: No previous studies for comparison. TECHNIQUE: Ankle to brachial indices were obtained. Grayscale and color and duplex Doppler sonography of the arterial system of the left lower extremity was performed. FINDINGS: Right ankle brachial index measured 0.52 when using the dorsalis pedis. Posterior tibial artery was noncompressible. The left ankle to brachial index measured 0.76 when using posterior tibial artery and 0.70 when using the dorsalis pedis. No elevated velocities were identified within the left lower extremity. There was triphasic flow within the left common femoral, superficial femoral and popliteal arteries as well as the left anterior tibial and posterior tibial arteries. There was biphasic flow within the left peroneal artery. There was monophasic flow within the left dorsalis pedis. Moderate plaque was noted. IMPRESSION: 1. Diminished left ankle to brachial index of 0.76. Significantly diminished right ankle to brachial index of 0.52. 2. No evidence of a hemodynamically significant stenosis or vessel occlusion within the left lower extremity by ultrasound. 3. Monophasic flow within left dorsalis pedis. Otherwise, biphasic and triphasic flow throughout the left lower extremity. Electronically signed by: Goldy Michelle M.D. 10/02/2017 1:58 PM Dictated Date/Time: 10/02/2017 1:55 PM
[2017-10-02 16:04] VITALS: O2SAT 93
[2017-10-02 16:06] VITALS: BP 114/68; PULSE 70; TEMP 36.7; O2SAT 95
--- NOTE | 2017-10-02 16:52 | Progress Note ---
Internal Med Progress Note Date of Service: Oct 02, 2017. Provider Documentation: SUBJECTIVE: Patient seen and examined at bedside. Blood pressure better today. Patient feeling better. Ulcers on left leg without drainage. Patient seen by Vascular service and arterial dopplers done OBJECTIVE: General Appearance: no apparent distress Head: normocephalic, atraumatic Eyes: normal inspection, EOMI, sclerae normal ENT: normal ENT inspection, hearing grossly normal, pharynx normal Neck: supple, no JVD, trachea midline Respiratory/Chest: chest non-tender, lungs clear, normal breath sounds, no respiratory distress, no accessory muscle use Cardiovascular: regular rate, rhythm, no edema, diminish left lower extremity pedal pulse Abdomen/GI: normal bowel sounds, non tender, soft, no organomegaly, no pulsatile mass Back: normal inspection, no muscle spasm, normal range of motion Extremities/Musculoskelatal: normal inspection Neurologic/Psych: alert, oriented x 3 ASSESSMENT & PLAN: Patient was evaluated and placed under observation for hypotension. Patient was given IV fluids between 10/01/17 to 10/02/17. Blood pressure improved and stable after IV fluids. Patient was empirically given antibiotic of ceftriaxone and cultures were drawn. However without evidence of fever and no skin breakdowns besides healing ulcers of left lower extremities Patient was evaluated by Vascular service for peripheral artery disease. Lower extremity artery doppler 1. Diminished left ankle to brachial index of 0.76. Significantly diminished right ankle to brachial index of 0.52. 2. No evidence of a hemodynamically significant stenosis or vessel occlusion within the left lower extremity by ultrasound. 3. Monophasic flow within left dorsalis pedis. Otherwise, biphasic and triphasic flow throughout the left lower extremity. As per Dr. Webber of vascular service, patient can follow up with her scheduled outpatient [facility] vascular appointment which is with Dr. Hdz on 10/12/17 at 10:45 AM at [facility] [address] , [place] [address] continue aspirin and plavix for peripheral artery disease Lower extremity ultrasound with chronic DVTs 1. There is age indeterminant and possibly chronic thrombus identified within 1 of 2 peritoneal right popliteal veins. 2. There is age indeterminant and possibly chronic thrombus present within the calf vessels bilaterally. 3. Left-sided popliteal cyst. Patient is on coumadin for history of thromboembolisms admission INR on 2/22/18 was elevated as 6.7, coumadin held, INR on 10/02/17 is 5.4 Patient should follow up with anticoagulation clinic and get INR checked. Patient with diabetes mellitus on high doses of insulin: Continue home insulin regimen Patient has follow up appointment with Dr. Roe on 10/06/17 at [address] [place] [address] Discharge Instructions: Patient should follow up with anticoagulation clinic and get INR checked in 1 to 2 days before resuming warfarin Patient with diabetes mellitus on high doses of insulin: Continue home insulin regimen Patient has follow up appointment with Dr. Roe on 10/06/17 at [address] [place] [address] and [facility] vascular appointment which is with Dr. Hdz on 10/12/17 at 10:45 AM at [facility] [address], [place] [address] Vital Signs: Date Time Temp Pulse Resp B/P (MAP) Pulse Ox O2 Delivery O2 Flow Rate FiO2 10/02/17 16:06 36.7 70 18 114/68 (83) 95 Room Air 10/02/17 16:04 93 Room Air 10/02/17 09:07 93 Room Air 10/02/17 07:13 36.8 83 20 154/93 (113) 93 Room Air 10/02/17 00:22 36.9 77 18 137/78 (97) 91 Room Air 10/02/17 00:05 Room Air 10/01/17 20:29 37.4 75 20 121/74 (90) 93 Room Air 10/01/17 19:41 37.4 73 20 94 10/01/17 17:14 73 20 122/68 94 Room Air Lab Results: Results Past 24 Hours Test 10/01/17 17:33 10/01/17 17:37 10/01/17 21:00 10/02/17 07:30 Range/Units Bedside Glucose 155 299 70-90 mg/dl Lactic Acid Level 1.4 0.4-2.0 mmol/L White Blood Count 4.47 4.8-10.8 K/uL Red Blood Count 4.23 4.2-5.4 M/uL Hemoglobin 12.2 12.0-16.0 g/dL Hematocrit 36.0 37-47 % Mean Corpuscular Volume 85.1 80-100 fL Mean Corpuscular Hemoglobin 28.8 25-34 pg Mean Corpuscular Hemoglobin Concent 33.9 32-36 g/dl Platelet Count 221 130-400 K/uL Mean Platelet Volume 9.5 7.4-10.4 fL Neutrophils (%) (Auto) 78.1 % Lymphocytes (%) (Auto) 19.0 % Monocytes (%) (Auto) 2.7 % Eosinophils (%) (Auto) 0.0 % Basophils (%) (Auto) 0.0 % Neutrophils # (Auto) 3.49 1.4-6.5 K/uL Lymphocytes # (Auto) 0.85 1.2-3.4 K/uL Monocytes # (Auto) 0.12 0.11-0.59 K/uL Eosinophils # (Auto) 0.00 0-0.5 K/uL Basophils # (Auto) 0.00 0-0.2 K/uL RDW Standard Deviation 44.7 36.4-46.3 fL RDW Coefficient of Variation 14.4 11.5-14.5 % Immature Granulocyte % (Auto) 0.2 % Immature Granulocyte # (Auto) 0.01 0.00-0.02 K/uL Prothrombin Time 52.9 9.0-12.0 SECONDS Prothromb Time International Ratio 5.2 0.9-1.1 Sodium Level 134 136-145 mmol/L Potassium Level 5.4 3.5-5.1 mmol/L Chloride Level 103 98-107 mmol/L Carbon Dioxide Level 23 21-32 mmol/L Anion Gap 9.0 3-11 mmol/L Blood Urea Nitrogen 24 7-18 mg/dl Creatinine 1.14 0.60-1.20 mg/dl Est Creatinine Clear Calc Drug Dose 50.5 ml/min Estimated GFR () 59.3 Estimated GFR (Non- 51.1 BUN/Creatinine Ratio 20.9 10-20 Random Glucose 410 70-99 mg/dl Estimated Average Glucose 324 mg/dl Hemoglobin A1c 12.9 4.5-5.6 % Calcium Level 8.9 8.5-10.1 mg/dl Total Bilirubin 0.3 0.2-1 mg/dl Aspartate Amino Transf (AST/SGOT) 10 15-37 U/L Alanine Aminotransferase (ALT/SGPT) 20 12-78 U/L Alkaline Phosphatase 90 45-117 U/L Total Protein 7.1 6.4-8.2 gm/dl Albumin 3.2 3.4-5.0 gm/dl Globulin 3.9 2.5-4.0 gm/dl Albumin/Globulin Ratio 0.8 0.9-2 Beta-Hydroxybutyric Acid 9.81 0.2-2.81 mg/dL Test 10/02/17 07:33 10/02/17 11:37 10/02/17 15:42 10/02/17 16:45 Range/Units Bedside Glucose 388 393 225 183 70-90 mg/dl Microbiology Results 10/01/17 Blood Culture, Received Pending 10/01/17 Blood Culture, Received Pending 10/02/17 Gram Stain, Received Pending 10/02/17 Wound Culture, Received Pending
--- NOTE | 2017-10-02 17:16 | Discharge Instructions ---
Discharge Instructions Date of Service Oct 02, 2017. Admission Reason for Admission: Cellulitis Of Right Lower Extremity, Elevated Inr, Discharge Discharge Diagnosis / Problem: Hypotension, Peripheral artery disease, Chronic DVT, INR high Discharge Goals Goal(s): Improve function, Improve disease control Activity Recommendations Activity Limitations: per Instructions/Follow-up section . Instructions / Follow-Up Instructions / Follow-Up Patient was evaluated and placed under observation for hypotension. Patient was given IV fluids between 10/01/17 to 10/02/17. Blood pressure improved and stable after IV fluids. Patient was empirically given antibiotic of ceftriaxone and cultures were drawn. However without evidence of fever and no skin breakdowns besides healing ulcers of left lower extremities Patient was evaluated by Vascular service for peripheral artery disease. Lower extremity artery doppler 1. Diminished left ankle to brachial index of 0.76. Significantly diminished right ankle to brachial index of 0.52. 2. No evidence of a hemodynamically significant stenosis or vessel occlusion within the left lower extremity by ultrasound. 3. Monophasic flow within left dorsalis pedis. Otherwise, biphasic and triphasic flow throughout the left lower extremity. As per Dr. Webber of vascular service, patient can follow up with her scheduled outpatient [facility] vascular appointment which is with Dr. Hdz on 10/12/17 at 10:45 AM at [address] [address] continue aspirin and plavix for peripheral artery disease Lower extremity ultrasound with chronic DVTs 1. There is age indeterminant and possibly chronic thrombus identified within 1 of 2 peritoneal right popliteal veins. 2. There is age indeterminant and possibly chronic thrombus present within the calf vessels bilaterally. 3. Left-sided popliteal cyst. Patient is on coumadin for history of thromboembolisms admission INR on 10/01/17 was elevated as 6.7, coumadin held, INR on 10/02/17 is 5.4 Patient should follow up with anticoagulation clinic and get INR checked. Patient with diabetes mellitus on high doses of insulin: Continue home insulin regimen Patient has follow up appointment with Dr. Roe on 10/06/[address] [place] [id number] Discharge Instructions: Patient should follow up with anticoagulation clinic and get INR checked in 1 to 2 days before resuming warfarin Patient with diabetes mellitus on high doses of insulin: Continue home insulin regimen Patient has follow up appointment with Dr. Roe on 10/06/17 at [address] [facility] [place] [address] and [facility] vascular appointment which is with Dr. Hdz on 10/12/17 at 10:45 AM at [facility] [address], [place] [address] Current Hospital Diet Patient's current hospital diet: Diabetes Type 2 Diet Discharge Diet Recommended Diet: Diabetes Type 2 Diet Pending Studies Studies pending at discharge: yes List of pending studies: blood/wound culture Laboratory Results Hemoglobin A1c Test 10/02/17 07:30 Range/Units Estimated Average Glucose 324 mg/dl Hemoglobin A1c 12.9 H 4.5-5.6 % Medical Emergencies . Who to Call and When: Medical Emergencies: If at any time you feel your situation is an emergency, please call 911 immediately. . Non-Emergent Contact Non-Emergency issues call your: Primary Care Provider, Specialist (Vascular doctor) Call Non-Emergent contact if: you have any medication questions . . "Provider Documentation" section prepared by Yung Anne. . VTE Core Measure Inpt VTE Proph given/why not?: Warfarin (Coumadin)
[2017-10-02 17:18] VITALS: BP 114/68; PULSE 70; TEMP 36.7; O2SAT 95
--- NOTE | 2017-10-02 17:34 | Discharge Instructions ---
Discharge Instructions Date of Service Oct 02, 2017. Admission Reason for Admission: Cellulitis Of Right Lower Extremity, Elevated Inr, Discharge Discharge Diagnosis / Problem: (1) Peripheral artery disease (2) Thromboembolism (3) Hypotension (4) Elevated INR VTE Date & Time Date of VTE Diagnosis: Oct 02, 2017 Time of VTE Diagnosis: 07:12 Discharge Goals Goal(s): Improve disease control Activity Recommendations Activity Limitations: per Instructions/Follow-up section Shower/Bathe: no limitations . Instructions / Follow-Up Instructions / Follow-Up Patient was evaluated and placed under observation for hypotension. Patient was given IV fluids between 10/01/17 to 10/02/17. Blood pressure improved and stable after IV fluids. Patient was empirically given antibiotic of ceftriaxone and cultures were drawn. However without evidence of fever and no skin breakdowns besides healing ulcers of left lower extremities Patient was evaluated by Vascular service for peripheral artery disease. Lower extremity artery doppler 1. Diminished left ankle to brachial index of 0.76. Significantly diminished right ankle to brachial index of 0.52. 2. No evidence of a hemodynamically significant stenosis or vessel occlusion within the left lower extremity by ultrasound. 3. Monophasic flow within left dorsalis pedis. Otherwise, biphasic and triphasic flow throughout the left lower extremity. As per Dr. Webber of vascular service, patient can follow up with her scheduled outpatient [facility] vascular appointment which is with Dr. Hdz on 10/12/17 at 10:45 AM at [place] [address], [place] [address] continue aspirin and plavix for peripheral artery disease Lower extremity ultrasound with chronic DVTs 1. There is age indeterminant and possibly chronic thrombus identified within 1 of 2 peritoneal right popliteal veins. 2. There is age indeterminant and possibly chronic thrombus present within the calf vessels bilaterally. 3. Left-sided popliteal cyst. Patient is on coumadin for history of thromboembolisms admission INR on 10/01/17 was elevated as 6.7, coumadin held, INR on 10/02/17 is 5.4 Patient should follow up with anticoagulation clinic and get INR checked. Patient with diabetes mellitus on high doses of insulin: Continue home insulin regimen Patient has follow up appointment with Dr. Roe on 10/06/[address] [place] [address] Discharge Instructions: Patient should follow up with anticoagulation clinic and get INR checked in 1 to 2 days before resuming warfarin Patient with diabetes mellitus on high doses of insulin: Continue home insulin regimen Patient has follow up appointment with Dr. Roe on 10/06/17 at [address] [place] [address] and [facility] vascular appointment which is with Dr. Hdz on 10/12/17 at 10:45 AM at [facility] [address], [place] [address] Medication Instructions: * Warfarin is a medicine prescribed to prevent blood clots * Warfarin will thin your blood and help prevent new clots * Take your medications exactly as directed * Never skip a dose. Never take a double dose. If you miss a dose, take it as soon as you remember * It is important for your doctor to monitor your prothrombin time (PT). This is a lab test * Keep your appointment for lab tests Risk of Adverse Drug Reactions and Interactions: * Warfarin increases your risk of bleeding * The food you eat and other medications you take can affect how Warfarin works in your body * Ask your doctor about daily aspirin therapy * It is very important to talk with your doctor about all of the other medicines , antibiotics, vitamins or herbal products that you are taking * All of your medication must be approved by your doctor, including new medicines, as well as medicines you have taken before you started taking Warfarin Diet: * In order for Warfarin to work properly, it is important to keep your intake of Vitamin K as consistent as possible * You should avoid any sudden change in Vitamin K intake * Report any significant changes in your diet or weight to your doctor Call your Primary Care doctor if you experience any of the following: * Swelling or Pain in your leg * Sudden, continuous pain deep in a muscle * Pain that worsens when you are active or when you stand still for a long time * Chest Pain * Sudden Shortness of Breath * Rapid or pounding heart beat * Fainting * Dizziness * Cough with blood or bloody sputum * Sweating more than normal * Bruises * Heavy or uncontrolled bleeding * Blood in your urine, stool or vomit * Black or tarry stools Caring for Your Self at Home: * Avoid sitting, standing or lying down for long periods without moving your legs and feet * When traveling by car, stop to get out and move around at least once every 3 hours * On long airplane, train or bus rides, get up and move around when possible * If you can't get up, wiggle your toes and tighten your calves to keep your blood moving Follow Up: It is important for you to keep your follow up appointments with your medical provider. Current Hospital Diet Patient's current hospital diet: Diabetes Type 2 Diet Discharge Diet Recommended Diet: Diabetes Type 2 Diet Pending Studies Studies pending at discharge: yes List of pending studies: blood/wound cultures Laboratory Results 10/02/17 07:30 Red Blood Count 4.23, Mean Corpuscular Volume 85.1, Mean Corpuscular Hemoglobin 28.8, Mean Corpuscular Hemoglobin Concent 33.9, Mean Platelet Volume 9.5, Neutrophils (%) (Auto) 78.1, Lymphocytes (%) (Auto) 19.0, Monocytes (%) (Auto) 2.7, Eosinophils (%) (Auto) 0.0, Basophils (%) (Auto) 0.0, Neutrophils # (Auto) 3.49, Lymphocytes # (Auto) 0.85, Monocytes # (Auto) 0.12, Eosinophils # (Auto) 0.00, Basophils # (Auto) 0.00 10/02/17 07:30 Test 10/01/17 12:08 10/01/17 12:09 10/01/17 14:15 10/01/17 17:37 Bedside Lactic Acid Venous 2.75 mmol/L (0.90-1.70) Erythrocyte Sedimentation Rate 15 mm/hr (0-21) Activated Partial Thromboplast Time 42.9 SECONDS (21.0-31.0) Partial Thromboplastin Ratio 1.7 Phosphorus Level 2.2 mg/dl (2.5-4.9) Magnesium Level 2.1 mg/dl (1.8-2.4) Total Creatine Kinase 50 U/L (26-192) Creatine Kinase MB 0.9 ng/ml (0.5-3.6) Creatine Kinase MB Ratio 1.8 (0-3.0) Troponin I < 0.015 ng/ml (0-0.045) C-Reactive Protein 1.00 mg/dl (0-0.29) Pro-B-Type Natriuretic Peptide 1005 pg/ml (0-900) Lipase 209 U/L (73-393) Urine Color YELLOW Urine Appearance CLEAR (CLEAR) Urine pH 5.0 (4.5-7.5) Urine Specific Williams 1.021 (1.000-1.030) Urine Protein 1+ (NEG) Urine Glucose (UA) 3+ (NEG) Urine Ketones NEG (NEG) Urine Occult Blood NEG (NEG) Urine Nitrite NEG (NEG) Urine Bilirubin NEG (NEG) Urine Urobilinogen NEG (NEG) Urine Leukocyte Esterase SMALL (NEG) Urine WBC (Auto) 1-5 /hpf (0-5) Urine RBC (Auto) 0-4 /hpf (0-4) Urine Hyaline Casts (Auto) 1-5 /lpf (0-5) Urine Epithelial Cells (Auto) >30 /lpf (0-5) Urine Bacteria (Auto) NEG (NEG) Lactic Acid Level 1.4 mmol/L (0.4-2.0) Test 10/02/17 07:30 10/02/17 16:45 White Blood Count 4.47 K/uL (4.8-10.8) Red Blood Count 4.23 M/uL (4.2-5.4) Hemoglobin 12.2 g/dL (12.0-16.0) Hematocrit 36.0 % (37-47) Mean Corpuscular Volume 85.1 fL (80-100) Mean Corpuscular Hemoglobin 28.8 pg (25-34) Mean Corpuscular Hemoglobin Concent 33.9 g/dl (32-36) Platelet Count 221 K/uL (130-400) Mean Platelet Volume 9.5 fL (7.4-10.4) Neutrophils (%) (Auto) 78.1 % Lymphocytes (%) (Auto) 19.0 % Monocytes (%) (Auto) 2.7 % Eosinophils (%) (Auto) 0.0 % Basophils (%) (Auto) 0.0 % Neutrophils # (Auto) 3.49 K/uL (1.4-6.5) Lymphocytes # (Auto) 0.85 K/uL (1.2-3.4) Monocytes # (Auto) 0.12 K/uL (0.11-0.59) Eosinophils # (Auto) 0.00 K/uL (0-0.5) Basophils # (Auto) 0.00 K/uL (0-0.2) RDW Standard Deviation 44.7 fL (36.4-46.3) RDW Coefficient of Variation 14.4 % (11.5-14.5) Immature Granulocyte % (Auto) 0.2 % Immature Granulocyte # (Auto) 0.01 K/uL (0.00-0.02) Prothrombin Time 52.9 SECONDS (9.0-12.0) Prothromb Time International Ratio 5.2 (0.9-1.1) Anion Gap 9.0 mmol/L (3-11) Est Creatinine Clear Calc Drug Dose 50.5 ml/min Estimated GFR () 59.3 Estimated GFR (Non- 51.1 BUN/Creatinine Ratio 20.9 (10-20) Estimated Average Glucose 324 mg/dl Hemoglobin A1c 12.9 % (4.5-5.6) Calcium Level 8.9 mg/dl (8.5-10.1) Total Bilirubin 0.3 mg/dl (0.2-1) Aspartate Amino Transf (AST/SGOT) 10 U/L (15-37) Alanine Aminotransferase (ALT/SGPT) 20 U/L (12-78) Alkaline Phosphatase 90 U/L (45-117) Total Protein 7.1 gm/dl (6.4-8.2) Albumin 3.2 gm/dl (3.4-5.0) Globulin 3.9 gm/dl (2.5-4.0) Albumin/Globulin Ratio 0.8 (0.9-2) Beta-Hydroxybutyric Acid 9.81 mg/dL (0.2-2.81) Bedside Glucose 183 mg/dl (70-90) Date/Time Source Procedure Growth Status 10/01/17 17:47 Blood Blood Culture Pending Received 10/02/17 00:00 Skin Foot Left Gram Stain Pending Received 10/02/17 00:00 Skin Foot Left Wound Culture Pending Received Hemoglobin A1c Test 10/02/17 07:30 Range/Units Estimated Average Glucose 324 mg/dl Hemoglobin A1c 12.9 H 4.5-5.6 % Medical Emergencies . Who to Call and When: Medical Emergencies: If at any time you feel your situation is an emergency, please call 911 immediately. . Non-Emergent Contact Non-Emergency issues call your: Primary Care Provider Call Non-Emergent contact if: you have any medication questions . . "Provider Documentation" section prepared by Yung Anne. . VTE Core Measure Inpt VTE Proph given/why not?: Warfarin (Coumadin), Treatment not indicated ( history of coumadin use, supratherapeutic INR) Reason no anticoag overlap I/P: Contraindicated Reason no anticoag overlap @DC: Contraindicated
--- NOTE | 2017-10-02 17:36 | Discharge Summary ---
Discharge Summary Date of Service Oct 02, 2017. Discharge Summary Admission Date: Oct 01, 2017 at 16:29 Discharge Date: Oct 02, 2017 Discharge Disposition: Home Principal Diagnosis: Peripheral artery disease, chronic Thromboembolism, Hypotension, Elevated INR , on coumadin as outpatient, Diabetes Mellitus with Hyperglycemia Pending Studies/Follow-Up: blood.wound culture Medication Reconciliation Continued Medications: Amino Acids (Amino Acids Complex) 1 Tab Tab 1 TAB PO DAILY Artificial Tear Solution (Tears Naturale) 1 Skye Skye 1 DROP OPB Q2H PRN for EYE DRYNESS Aspirin (Aspirin Ec) 81 Mg Tab 81 MG PO DAILY Atorvastatin (Lipitor) 40 Mg Tab 40 MG PO DAILY, TAB Bupropion (Wellbutrin Sr) 150 Mg Ertab 150 MG PO BID, TAB Clopidogrel Bisulfate (Plavix) 75 Mg Tab 75 MG PO DAILY, TAB Cyanocobalamin (Vitamin B-12) 500 Mcg Tab 500 MCG SL DAILY, TAB Ergocalciferol (Vitamin D 42744 Unit) 50,000 Unit Cap 1 CAP PO WK Fluticasone Propionate (Nasal) (Flonase Allergy Relief) 50 Mcg/Act Spr 2 SPRAY HOLLAND DAILY Insulin Aspart 70/30 (Novolog Mix 70/30) Susp 50 UNITS SC QAM, BTL Insulin Aspart 70/30 (Novolog Mix 70/30) Susp 40 UNITS SC QPM, BTL Isosorbide Mononitrate Ext Rel (Imdur Ext Rel) 30 Mg Ertab 30 MG PO QAM, TAB Lorazepam (Ativan) 0.5 Mg Tab 0.5 MG PO TID PRN for Anxiety/Agitation, TAB Losartan Potassium (Cozaar) 100 Mg Tab 100 MG PO DAILY, TAB Magnesium Oxide (Magnesium) 400 Mg Tab 400 MG PO DAILY Metformin Hcl (Metformin Hcl Er) 500 Mg Tab 500 MG PO BID, TAB Methocarbamol (Robaxin) 500 Mg Tab 500 MG PO TID PRN for Muscle Spasms, TAB TAKE 1/2 TO 1 TAB UP TO 3X A DAY. Metoprolol Tartrate (Lopressor) (Lopressor) 25 Mg Tab 25 MG PO BID, TAB Ondansetron Hcl (Zofran) 4 Mg Tab 4 MG PO Q6H PRN for Nausea, TAB Oxycodone/Acetaminophen 5MG/325MG (Percocet 5MG/325MG) Tab 1 TABLET PO Q4H PRN for Pain, TAB PAIN Pantoprazole (Protonix) 40 Mg Tab 40 MG PO DAILY, TAB Polyethylene Glycol 3350 (Miralax) 1 Pow Pow 17 GM PO DAILY PRN for Constipation, #255 GM Psyllium (Metamucil Free & Natural) 43 % Pow 1 DOSE PO DIRECTED Senna/Docusate Sod (Senokot S) 1 Tab Tab 2-4 TAB PO DAILY PRN for Constipation, TAB Tramadol (Ultram) 50 Mg Tab 50 MG PO Q6H PRN for Pain, TAB Trazodone Hcl (Desyrel) 50 Mg Tab 150 MG PO HS Discontinued Medications: Warfarin Sod (Jantoven) 5 Mg Tab 5 MG PO [id number] Warfarin Sod (Jantoven) 2.5 Mg Tab 7.5 MG PO MWF, TAB Admission Information HPI (per Admitting provider): As per patient and ER physician, patient was at wound care clinic when she felt lightheaded. There was no apparent loss of consciousness. However, patient's blood pressure was low and sent to the ED. No apparent respiratory distress. Patient had workup which included CTA of lungs, methylprednisone was given to prevent intolerance or reactions to the IV contrast. There was no PE on CTA scan. Patient also reports that she is known to vascular outpatient clinic for poor pulses of the left foot, also left foot ulcer. As per ED physician, there is low suspicion for infectious process. Patient did not feel well enough after IV fluids to leave the ED. Patient's blood pressure also low normal limits after IV fluids. Labs remarkable for INR of 6.4. Patient is on couamdin at home Physical Exam (per Admitting): General Appearance: no apparent distress Head: normocephalic, atraumatic Eyes: normal inspection, EOMI, sclerae normal ENT: normal ENT inspection, hearing grossly normal, pharynx normal Neck: supple, no JVD, trachea midline Respiratory/Chest: chest non-tender, lungs clear, normal breath sounds, no respiratory distress, no accessory muscle use Cardiovascular: regular rate, rhythm, no edema, + abnormal peripheral pulses (dminish left lower extremity pedal pulse) Abdomen/GI: normal bowel sounds, non tender, soft, no organomegaly, no pulsatile mass Back: normal inspection, no muscle spasm, normal range of motion Extremities/Musculoskelatal: normal inspection, + calf tenderness (reports left calf tenderness) Neurologic/Psych: alert, oriented x 3 Skin: + pertinent finding (left leg in dressing) Hospital Course Patient was evaluated and placed under observation for hypotension. Patient was given IV fluids between 10/01/17 to 10/02/17. Blood pressure improved and stable after IV fluids. Patient was empirically given antibiotic of ceftriaxone and cultures were drawn. However without evidence of fever and no skin breakdowns besides healing ulcers of left lower extremities Patient was evaluated by Vascular service for peripheral artery disease. Lower extremity artery doppler 1. Diminished left ankle to brachial index of 0.76. Significantly diminished right ankle to brachial index of 0.52. 2. No evidence of a hemodynamically significant stenosis or vessel occlusion within the left lower extremity by ultrasound. 3. Monophasic flow within left dorsalis pedis. Otherwise, biphasic and triphasic flow throughout the left lower extremity. As per Dr. Webber of vascular service, patient can follow up with her scheduled outpatient [facility] vascular appointment which is with Dr. Hdz on 10/12/17 at 10:45 AM at [address] [place] [place] [address] continue aspirin and plavix for peripheral artery disease Lower extremity ultrasound with chronic DVTs 1. There is age indeterminant and possibly chronic thrombus identified within 1 of 2 peritoneal right popliteal veins. 2. There is age indeterminant and possibly chronic thrombus present within the calf vessels bilaterally. 3. Left-sided popliteal cyst. Patient is on coumadin for history of thromboembolisms admission INR on 10/01/17 was elevated as 6.7, coumadin held, INR on 10/02/17 is 5.4 Patient should follow up with anticoagulation clinic and get INR checked. Patient with diabetes mellitus on high doses of insulin: Continue home insulin regimen Patient has follow up appointment with Dr. Roe on 10/06/17 at [address] [place] [address] Discharge Instructions: Patient should follow up with anticoagulation clinic and get INR checked in 1 to 2 days before resuming warfarin Patient with diabetes mellitus on high doses of insulin: Continue home insulin regimen Patient has follow up appointment with Dr. Roe on 10/06/17 at [address] [place] [address] and [facility] vascular appointment which is with Dr. Hdz on 10/12/17 at 10:45 AM at [facility] [address], [place] [address] Total time spent on discharge = 60 minutes This includes examination of the patient, discharge planning, medication reconciliation, and communication with other providers. Discharge Instructions Patient should follow up with anticoagulation clinic and get INR checked in 1 to 2 days before resuming warfarin Patient with diabetes mellitus on high doses of insulin: Continue home insulin regimen Patient has follow up appointment with Dr. Roe on 10/06/[address] [place] [id number] and [facility] vascular appointment which is with Dr. Hdz on 10/12/17 at 10:45 AM at [facility] [address], [place] [address] Medication Instructions: Warfarin is a medicine prescribed to prevent blood clots Warfarin will thin your blood and help prevent new clots Take your medications exactly as directed Never skip a dose. Never take a double dose. If you miss a dose, take it as soon as you remember It is important for your doctor to monitor your prothrombin time (PT). This is a lab test Keep your appointment for lab tests Risk of Adverse Drug Reactions and Interactions: Warfarin increases your risk of bleeding The food you eat and other medications you take can affect how Warfarin works in your body Ask your doctor about daily aspirin therapy It is very important to talk with your doctor about all of the other medicines, antibiotics, vitamins or herbal products that you are taking All of your medication must be approved by your doctor, including new medicines, as well as medicines you have taken before you started taking Warfarin Diet: In order for Warfarin to work properly, it is important to keep your intake of Vitamin K as consistent as possible You should avoid any sudden change in Vitamin K intake Report any significant changes in your diet or weight to your doctor Call your Primary Care doctor if you experience any of the following: Swelling or Pain in your leg Sudden, continuous pain deep in a muscle Pain that worsens when you are active or when you stand still for a long time Chest Pain Sudden Shortness of Breath Rapid or pounding heart beat Fainting Dizziness Cough with blood or bloody sputum Sweating more than normal Bruises Heavy or uncontrolled bleeding Blood in your urine, stool or vomit Black or tarry stools Caring for Your Self at Home: Avoid sitting, standing or lying down for long periods without moving your legs and feet When traveling by car, stop to get out and move around at least once every 3 hours On long airplane, train or bus rides, get up and move around when possible If you can't get up, wiggle your toes and tighten your calves to keep your blood moving
[2017-10-03] MEDS ORDERED: INSULIN ASPART 100 UNITS/ML 3 ML PEN SC SCH (02:00)
== END 2017-10-02 19:25 | disposition home or self-care (01) ==
LOC: EDBD 10:50 → C.EDC 10:51 → C.2T 16:29 → INTOOBSV 16:29 → ENRESERV 16:34 → EDBEDREQ 16:59 → ENRESERV 18:34 → CANRESERV 18:34 → ENRESERV 19:08 → C.MS4W 19:41
PROVIDERS: ADMIT Hospitalist; ATTEND Hospitalist
DX: L03.115 Cellulitis of right lower limb (principal); L97.929 Non-pressure chronic ulcer of unspecified part of left lower leg with unspecified severity; I95.9 Hypotension, unspecified; I73.9 Peripheral vascular disease, unspecified; I25.10 Atherosclerotic heart disease of native coronary artery without angina pectoris; E11.9 Type 2 diabetes mellitus without complications; E78.5 Hyperlipidemia, unspecified; I10 Essential (primary) hypertension; F32.9 Major depressive disorder, single episode, unspecified; Z86.711 Personal history of pulmonary embolism; Z85.43 Personal history of malignant neoplasm of ovary; Z95.5 Presence of coronary angioplasty implant and graft; Z87.440 Personal history of urinary (tract) infections; Z96.649 Presence of unspecified artificial hip joint; Z90.49 Acquired absence of other specified parts of digestive tract; Z87.81 Personal history of (healed) traumatic fracture; Z83.3 Family history of diabetes mellitus; Z82.49 Family history of ischemic heart disease and other diseases of the circulatory system; Z84.1 Family history of disorders of kidney and ureter; Z80.41 Family history of malignant neoplasm of ovary; Z87.891 Personal history of nicotine dependence; Z79.82 Long term (current) use of aspirin; Z88.2 Allergy status to sulfonamides; Z88.0 Allergy status to penicillin; Z91.041 Radiographic dye allergy status; Z79.4 Long term (current) use of insulin; Z79.01 Long term (current) use of anticoagulants; I77.2 Rupture of artery; Z90.710 Acquired absence of both cervix and uterus; Z96.641 Presence of right artificial hip joint; Z88.1 Allergy status to other antibiotic agents

== ENCOUNTER 2019-05-28 09:55 | Inpatient (IN) ==
[2019-05-28] MEDS ORDERED: ACETAMINOPHEN 1,000 MG/100 ML VIAL IV STA (11:13)
--- NOTE | 2019-05-28 11:28 | Emergency Department Note ---
ED Visit Note This patient was seen in concert with Dr. Contreras and we discussed and agreed upon the history, physical, assessment, and plan. See attending's note for details. . Resident Activity Tracking Resident Involvement: Resident Care Provided Care Provided: Adult ED
[2019-05-28 11:39] LABS: Basophils # (auto) 0.01 K/uL (0-0.2); Basophils % (auto) 0.2 %; Eosinophils % (auto) 4.3 %; Lymphocytes # (auto) 1.11 K/uL (1.2-3.4); Lymphocytes % (auto) 23.6 %; Mean Corpuscular Hemoglobin 29.3 pg (25-34); Mean Corpuscular Hgb Conc 34.4 g/dL (32-36); Mean Corpuscular Volume 85.1 fL (80-100); Monocytes # (auto) 0.23 K/uL (0.11-0.59); Monocytes % (auto) 4.9 %; Neutrophils # (auto) 3.15 K/uL (1.4-6.5); Platelet Count 231 K/uL (130-400); RDW Coefficient of Variation 13.5 % (11.5-14.5); RDW Standard Deviation 40.8 fL (36.4-46.3); Red Blood Count 3.76 M/uL (4.2-5.4)
[2019-05-28 11:52] LABS: INR 1.4 (0.9-1.1); Prothrombin Time 14.2 Seconds (9.0-12.0)
--- NOTE | 2019-05-28 11:53 | CT Scan Report ---
CT head/brain wo con CT DOSE: 1051.15 mGy.cm HISTORY: Trauma Fall TECHNIQUE: Multiaxial CT images of the head were performed without the use of intravenous contrast. A dose lowering technique was utilized adhering to the principles of ALARA. Comparison: 02/18/2019 Findings: The paranasal sinuses and mastoid air cells are clear. The calvarium and skull base are int act. The ventricles and sulci are within normal limits. There is no mass, hematoma, midline shift, or acute infarct. Impression: No acute intracranial abnormality. Mild age-related atrophy and chronic small vessel change The above report was generated using voice recognition software. It may contain grammatical, syntax or spelling errors. Electronically signed by: Des Barraza M.D. 05/28/2019 11:51 AM
--- NOTE | 2019-05-28 11:58 | CT Scan Report ---
CT cervical spine wo con CT DOSE: HISTORY: Trauma Fall TECHNIQUE: Multiaxial CT images of the cervical spine were performed and reformatted in the sagittal and coronal plane without the use of contrast. A dose lowering technique was utilized adhering to th e principles of ALARA. COMPARISON: None. FINDINGS: No fractures. No subluxation. Prevertebral soft tissues and the C1-C2 interval are intact. No pneumothorax. Moderate degenerative disc change. IMPRESSION: 1. No acute process. 2. Moderate degenerative disc change.: The above report was generated using voice recognition software. It may contain grammatical, syntax or spelling errors. Electronically signed by: Des Barraza M.D. 05/28/2019 11:56 AM
[2019-05-28 12:05] LABS: Alanine Aminotransferase 20 U/L (12-78); Albumin Globulin Ratio 0.8 (0.9-2); Albumin Level 3.1 gm/dl (3.4-5.0); Alkaline Phosphatase 171 U/L (45-117); Aspartate Aminotransferase 15 U/L (15-37); BUN Creatinine Ratio 15.7 (10-20); Blood Urea Nitrogen 17 mg/dl (7-18); Calcium 8.7 mg/dl (8.5-10.1); Carbon Dioxide 25 mmol/L (21-32); Chloride 99 mmol/L (98-107); Creatinine Clr Calc Pharmacy 50.4 ml/min; Est GFR (African American) 61.4; Globulin 3.7 gm/dl (2.5-4.0); Glucose 403 mg/dl (70-99); Magnesium 1.6 mg/dl (1.8-2.4); Phosphorus 3.2 mg/dl (2.5-4.9); Potassium 4.3 mmol/L (3.5-5.1); Sodium 132 mmol/L (136-145); Total Protein 6.8 gm/dl (6.4-8.2); Troponin I < 0.015 ng/ml (0-0.045)
[2019-05-28 12:21] LABS: Beta-Hydroxybutyrate 11.96 mg/dl (0.2-2.81)
--- NOTE | 2019-05-28 12:31 | XRay Report ---
XR elbow RT min 3V routine CLINICAL HISTORY: Extremity Trama pain COMPARISON: None. DISCUSSION: The bones and joint spaces appear intact. There is no evidence of fracture, dislocation o r bony disease. There is no evidence for soft tissue swelling. IMPRESSION: Negative study. The above report was generated using voice recognition software. It may contain grammatical, syntax or spelling errors. Electronically signed by: Des Barraza M.D. 05/28/2019 12:29 PM
--- NOTE | 2019-05-28 12:34 | XRay Report ---
XR forearm RT 2V CLINICAL HISTORY: Extremity Trama trauma COMPARISON: None. DISCUSSION: Nondisplaced cortical fracture of the right lateral elbow supracondylar region. Remainder of the forearm is unremarkable. Mild degenerative change is present. There is no evidence for soft t issue swelling. IMPRESSION: Fracture of the right supracondylar region of the right elbow. The remainder of the study is negative. The above report was generated using voice recognition software. It may contain grammatical, syntax or spelling errors. Electronically signed by: Des Barraza M.D. 05/28/2019 12:33 PM
--- NOTE | 2019-05-28 12:35 | XRay Report ---
XR wrist RT min 3V routine CLINICAL HISTORY: Extremity Trama COMPARISON: None. DISCUSSION: Generalized degenerative change. Old avulsion of ulnar styloid. Soft tissue vascular calc ification. Mild soft tissue edema IMPRESSION: Generalized degenerative change. Soft tissue edema. No acute bony abnormality. The above report was generated using voice recognition software. It may contain grammatical, syntax or spelling errors. Electronically signed by: Des Barraza M.D. 05/28/2019 12:33 PM
--- NOTE | 2019-05-28 12:35 | XRay Report ---
XR hand RT min 3V routine CLINICAL HISTORY: Extremity Trama trauma COMPARISON: None. DISCUSSION: Fracture distal aspect fifth metacarpal. Localized soft tissue edema. No additional acute bony abnormality. Moderate generalized degenerative change. IMPRESSION: Nondisplaced oblique fracture distal aspect fifth metacarpal. The above report was generated using voice recognition software. It may contain grammatical, syntax or spelling errors. Electronically signed by: Des Barraza M.D. 05/28/2019 12:34 PM
--- NOTE | 2019-05-28 12:36 | XRay Report ---
XR chest 1V portable CLINICAL HISTORY: fall trauma COMPARISON STUDY: 02/16/2018 FINDINGS: The bones soft tissues and hemidiaphragms are normal. The cardiomediastinal silhouette is n ormal. The lungs are clear. The pulmonary vasculature is normal. IMPRESSION: Negative chest. The above report was generated using voice recognition software. It may contain grammatical, syntax or spelling errors. Electronically signed by: Des Barraza M.D. 05/28/2019 12:35 PM
[2019-05-28] MEDS ORDERED: SODIUM CHLORIDE 0.9% 500 ML IV ONE (12:39)
[2019-05-28] MEDS: MAGNESIUM SULFATE / D5W 1 GM/100 ML BAG IV SCH ×2 (12:48→13:53)
[2019-05-28] MEDS ORDERED: MoRPHine SULFATE 2 MG/ML CARP IV STA (13:07)
--- NOTE | 2019-05-28 14:01 | Emergency Department Note ---
Entered by Columba Maurice acting as a scribe for History of Present Illness General Chief complaint: Elbow Injury/Pain Stated complaint: FELL, B/L EARS RINGING, VERTIGO, RT ELBOW INJURY Time Seen by Provider: 05/28/19 10:35 Source: patient History of Present Illness Onset (ago): hour(s) 7 Location: upper extremity and right Pain Consistency: + other (episode) Maximum Pain Intensity: 4 Current Pain Intensity: 10 Quality: + other (fall) Associated symptoms: + other (positive right elbow pain; positive right hand pain; positive tinnitis; negative dizziness; negative diarrhea; negative vision changes; negative neck pain); no chest pain, no fever/chills, no nausea/vomiting and no shortness of breath The patient is a 63 year old female who presents to the Emergency Room with complaints of an episode of a fall that occurred at 0400, approximately 7 hours prior to arrival. The patient states that she was going to the bathroom when she fell forward, but states that she does not know how this fall occurred and states that she is not sure if she lost consciousness or not. The patient states that she hit her right elbow during this fall, and states that she has 10/10 pain. She states that she also has pain in her right hand. The patient reports tinnitis for the past month, and states that this is similar to her prior epi sodes of vertigo. She states that she does not remember being dizzy prior to her fall. The patient denies nausea, vomiting, diarrhea, chest pain, shortness of breath, fevers, chills, dizziness, vision changes, and neck pain currently. The patient states that she fell three days prior to arrival and hit her head, but states that she did not come in to get evaluated for this. She states that she is on Coumadin. Home Medications Home Medications Medication Instructions Recorded Confirmed Type amino acids 1 tab PO DAILY 02/18/19 05/28/19 History aspirin [Aspir-81] 81 mg PO DAILY 02/18/19 05/28/19 History bupropion HCl 150 mg PO BID 02/18/19 05/28/19 History clopidogrel [Plavix] 75 mg PO DAILY 02/18/19 05/28/19 History ergocalciferol (vitamin D2) 50,000 unit PO WK 02/18/19 05/28/19 History [Vitamin D2] fluticasone propionate [Flonase 2 spray INTRANASAL DAILY PRN 02/18/19 05/28/19 History Allergy Relief] insulin NPH and regular human 60 unit SUBCUT QPM 02/18/19 05/28/19 History [Novolin 70-30 FlexPen U-100] insulin NPH and regular human 50 unit SUBCUT QAM 02/18/19 05/28/19 History [Novolin 70/30 U-100 Insulin] isosorbide mononitrate 30 mg PO QAM 02/18/19 05/28/19 History losartan 100 mg PO DAILY 02/18/19 05/28/19 History metformin 500 mg PO BID 02/18/19 05/28/19 History methocarbamol 500 mg PO TID PRN 02/18/19 05/28/19 History metoprolol tartrate 25 mg PO BID 02/18/19 05/28/19 History pantoprazole [Protonix] 40 mg PO DAILY 02/18/19 05/28/19 History tramadol 50 mg PO Q6H PRN 02/18/19 05/28/19 History trazodone 150 mg PO HS 02/18/19 05/28/19 History atorvastatin [Lipitor] 80 mg PO DAILY 05/28/19 05/28/19 History metronidazole [Flagyl] 250 mg PO QID 05/28/19 05/28/19 History peppermint oil 50 mg PO UD PRN 05/28/19 05/28/19 History tetracycline 500 mg PO QID 05/28/19 05/28/19 History warfarin [Coumadin] 5 mg PO UD 05/28/19 05/28/19 History Allergies Allergy/AdvReac Type Severity Reaction Status Date / Time Sulfa (Sulfonamide Allergy Unknown GI SYMPTOMS Verified 05/28/19 10:50 Antibiotics) clarithromycin AdvReac Intermediate GI SYMPTOMS Verified 05/28/19 10:50 Iodinated Contrast Media AdvReac Unknown CONTRAST-"COULDN'T Unverified 05/28/19 10:50 FUNCTION" Past Med/Surg History Medical History Diabetes (Chronic) Hypertension (Chronic) Hyperlipidemia (Chronic) Ovarian cancer (Chronic) Anxiety (Chronic) Depression (Chronic) UTI (urinary tract infection) (Chronic) Bilateral pulmonary embolism (Resolved) Peripheral artery disease Thromboembolism Surgical History History of appendectomy (Resolved) History of cholecystectomy (Resolved) H/O total hip arthroplasty (Resolved) Family History Other Diabetes Heart disease Hypertension Kidney stones Ovarian cancer Social History Preferred Language: Jordanian Communication Ability: Effective Commercial Lender Required: No Beliefs That Will Affect Care: None marital status: Single Current Living Situation: Alone current occupational status: retired Other Information That Helps Us Care for You: No Feels Safe at Home: Yes Safety Concerns: Feels Safe At This Time Smoking Status: Never smoker Hx Alcohol Use: No Hx Substance Use: No Review of Systems See HPI for pertinent positives & negatives. and A total of 10 systems reviewed and were otherwise negative Physical Exam Vital Signs Vital Signs - 24 hr 05/28/19 10:00 05/28/19 11:59 05/28/19 13:00 Temperature 36.8 C Temperature Source Oral Sepsis Recent Fever Within 48 Hours No Sepsis Action Taken by Nursing No Action Required Pulse Rate 81 Pulse Rate [Finger] 73 74 Pulse Rhythm Regular Pulse Rhythm [Finger] Regular Pulse Strength Normal Respiratory Rate 20 17 20 Respiratory Effort / Characteristics Non-Labored Spontaneous Non-Labored Spontaneous Respiratory Depth Normal Normal Respiratory Pattern Regular Regular Blood Pressure 178/100 H Blood Pressure [Left Radial Artery] 156/90 H 174/84 H Blood Pressure Mean 126 Blood Pressure Mean [Left Radial Artery] 112 114 Blood Pressure Position Sitting Blood Pressure Position [Left Radial Artery] Sitting Pulse Oximetry 96 96 97 Oxygen Delivery Method Room Air Room Air Room Air GENERAL: Awake, alert, fatigued and uncomfortable-appearing, in no distress HENT: Normocephalic. Resolving ecchymosis of the right lateral forehead without hematoma. Oropharynx unremarkable. Mucous membranes dry. EYES: Normal conjunctiva. Sclera non-icteric. NECK: Supple. No nuchal rigidity. FROM. No JVD. RESPIRATORY: CTAB. CARDIAC: Regular rate, normal rhythm. Extremities warm and well perfused. Pulses equal. ABDOMEN: Soft, non-distended. No tenderness to palpation. No rebound or guarding. No masses. RECTAL: Deferred. MUSCULOSKELETAL: Chest examination reveals no tenderness. The back is symmetrical on inspection without obvious abnormality. There is no CVA tenderness to palpation. No joint edema. Tenderness and swelling of the right el bow with full range of motion intact but causes pain. Tenderness of the lateral aspect of the dorsum of the right wrist and base of the first metacarpal. Distal PMS intact. LOWER EXTREMITIES: Calves are equal size bilaterally and non-tender. No edema. No discoloration. NEURO: Normal sensorium. No sensory or motor deficits noted. SKIN: No rash or jaundice noted. Course 1108: The patient was seen and evaluated by the resident Michi Dejesus. 1135: Past medical records reviewed. The patient was evaluated in room B2. A complete history and physical exam was performed. 1327: The resident discussed the case with Anton Lewis PA-C who accepts the patient for further evaluation under Dr. Kwon Hospitalist care. Administered Medications Bupropion HCl (Wellbutrin-Xl) 150 mg PO BID [facility]AVEN Stop: 06/27/19 20:59 Last Admin: 05/28/19 22:11 Dose: 150 mg Documented by: [id number] Sodium Chloride (Nss 1000ml) 1,000 mls @ 100 mls/hr IV .Q10H [facility]AVEN Stop: 06/27/19 15:59 Last Admin: 05/28/19 16:42 Dose: 100 mls/hr Documented by: [id number] Insulin Aspart (Novolog Flexpen) 0 units SC ACHS [facility] Stop: 06/27/19 16:29 Last Admin: 05/28/19 22:09 Dose: 5 units Documented by: [id number] Cosigned by: [id number] Admin: 05/28/19 17:28 Dose: 21 units Documented by: [id number] Cosigned by: [id number] Insulin Glargine (Lantus Solostar Pen) 0 units SC BID RAVEN; Protocol Stop: 06/27/19 20:59 Last Admin: 05/28/19 22:03 Dose: 24 units Documented by: [id number] Cosigned by: [id number] Metoprolol Tartrate (Lopressor) 25 mg PO BID RAVEN Stop: 06/27/19 20:59 Last Admin: 05/28/19 22:11 Dose: 25 mg Documented by: [id number] Tramadol HCl (Ultram) 50 mg PO Q6H PRN PRN Reason: Pain Stop: 06/27/19 15:42 Last Admin: 05/28/19 20:04 Dose: 50 mg Documented by: [id number] Trazodone HCl (Desyrel) 150 mg PO HS [facility] Stop: 06/27/19 20:59 Last Admin: 05/28/19 22:09 Dose: 150 mg Documented by: [id number] Warfarin Sodium (Coumadin) 5 mg PO [id number] [facility] Stop: 06/27/19 16:29 Last Admin: 05/28/19 17:01 Dose: 5 mg Documented by: [id number] Discontinued Medications Acetaminophen (Ofirmev) 1,000 mg in 100 mls @ 400 mls/hr IV NOW STA Stop: 05/28/19 11:27 Last Infusion: 05/28/19 11:56 Dose: 0 mls/hr Documented by: [id number] Admin: 05/28/19 11:35 Dose: 400 mls/hr Documented by: [id number] Magnesium Sulfate/Dextrose (Magnesium Sulfate / D5w) 1 gm in 100 mls @ 100 mls/hr IV Q1H [facility] Stop: 05/28/19 14:44 Last Infusion: 05/28/19 14:58 Dose: 0 mls/hr Documented by: [id number] Admin: 05/28/19 13:53 Dose: 100 mls/hr Documented by: [id number] Infusion: 05/28/19 13:48 Dose: 100 mls/hr Documented by: [id number] Admin: 05/28/19 12:48 Dose: 100 mls/hr Documented by: [id number] Sodium Chloride (Nss) 500 mls @ 999 mls/hr IV .Q31M ONE Stop: 05/28/19 13:09 Last Infusion: 05/28/19 13:53 Dose: 0 mls/hr Documented by: [id number] Admin: 05/28/19 12:48 Dose: 999 mls/hr Documented by: [id number] Sodium Chloride (Nss 1000ml) 1,000 mls @ 75 mls/hr IV .[id number] [facility] Stop: 06/27/19 15:42 Last Admin: 05/28/19 16:19 Dose: Not Given Documented by: [id number] Insulin Glargine (Lantus Solostar Pen) 10 units SQ NOW STA Stop: 05/28/19 18:40 Last Admin: 05/28/19 20:00 Dose: 10 units Documented by: [id number] Cosigned by: [id number] Miscellaneous Information (Dc All Previously Ordered Diabetes Meds) 1 ea N/A ONE ONE Stop: 05/28/19 15:44 Last Admin: 05/28/19 17:30 Dose: 1 ea Documented by: [id number] Morphine Sulfate (Morphine Sulfate) 2 mg IV NOW STA Stop: 05/28/19 13:08 Last Admin: 05/28/19 13:31 Dose: 2 mg Documented by: [id number] Medical Decision Making Differential Diagnosis Differential diagnoses include major intracranial, cervical, spinal, thoracic, abdominal, pelvic and neurologic injury. Fracture, contusion, sprain, strain, laceration, abrasions included as well. Medical Records Attestation: I reviewed the patient's medical records. Home Medications Current Medication List: was personally reviewed by me Laboratory Data Attestation: I reviewed the patient's lab results. Result diagrams: 05/28/19 11:25 05/28/19 17:25 Lab Results 05/28/19 05/28/19 05/28/19 Range/Units 11:25 11:25 11:25 WBC 4.70 L (4.8-10.8) K/uL RBC 3.76 L (4.2-5.4) M/uL Hgb 11.0 L (12.0-16.0) g/dL Hct 32.0 L (37-47) % MCV 85.1 (80-100) fL MCH 29.3 (25-34) pg MCHC 34.4 (32-36) g/dL RDW Std Deviation 40.8 (36.4-46.3) fL RDW Coeff of Jono 13.5 (11.5-14.5) % Plt Count 231 (130-400) K/uL MPV 9.0 (7.4-10.4) fL Immature Gran % (Auto) 0.0 % Neut % (Auto) 67.0 % Lymph % (Auto) 23.6 % [place] % (Auto) 4.9 % Eos % (Auto) 4.3 % Baso % (Auto) 0.2 % Immature Gran # (Auto) 0.00 (0.00-0.02) K/uL Neut # (Auto) 3.15 (1.4-6.5) K/uL Lymph # (Auto) 1.11 L (1.2-3.4) K/uL [place] # (Auto) 0.23 (0.11-0.59) K/uL Eos # (Auto) 0.20 (0-0.5) K/uL Baso # (Auto) 0.01 (0-0.2) K/uL PT 14.2 H (9.0-12.0) Seconds INR 1.4 H (0.9-1.1) Sodium 132 L (136-145) mmol/L Potassium 4.3 (3.5-5.1) mmol/L Chloride 99 (98-107) mmol/L Carbon Dioxide 25 (21-32) mmol/L Anion Gap 9.0 (3-11) BUN 17 (7-18) mg/dl Creatinine 1.10 (0.6-1.2) mg/dl Est Cr Clr Drug Dosing 50.4 ml/min Est GFR ( Amer) 61.4 Est GFR (Non-Af Amer) 53.0 BUN/Creatinine Ratio 15.7 (10-20) Glucose 403 H* (70-99) mg/dl POC Glucose (70-99) Calcium 8.7 (8.5-10.1) mg/dl Phosphorus 3.2 (2.5-4.9) mg/dl Magnesium 1.6 L (1.8-2.4) mg/dl Total Bilirubin 1.0 (0.2-1) mg/dl AST 15 (15-37) U/L ALT 20 (12-78) U/L Alkaline Phosphatase 171 H (45-117) U/L Troponin I < 0.015 (0-0.045) ng/ml Total Protein 6.8 (6.4-8.2) gm/dl Albumin 3.1 L (3.4-5.0) gm/dl Globulin 3.7 (2.5-4.0) gm/dl Albumin/Globulin Ratio 0.8 L (0.9-2) Beta-Hydroxybutyric Acd 11.96 H (0.2-2.81) mg/dl 05/28/19 Range/Units 14:00 WBC (4.8-10.8) K/uL RBC (4.2-5.4) M/uL Hgb (12.0-16.0) g/dL Hct (37-47) % MCV (80-100) fL MCH (25-34) pg MCHC (32-36) g/dL RDW Std Deviation (36.4-46.3) fL RDW Coeff of Jono (11.5-14.5) % Plt Count (130-400) K/uL MPV (7.4-10.4) fL Immature Gran % (Auto) % Neut % (Auto) % Lymph % (Auto) % [place] % (Auto) % Eos % (Auto) % Baso % (Auto) % Immature Gran # (Auto) (0.00-0.02) K/uL Neut # (Auto) (1.4-6.5) K/uL Lymph # (Auto) (1.2-3.4) K/uL [place] # (Auto) (0.11-0.59) K/uL Eos # (Auto) (0-0.5) K/uL Baso # (Auto) (0-0.2) K/uL PT (9.0-12.0) Seconds INR (0.9-1.1) Sodium (136-145) mmol/L Potassium (3.5-5.1) mmol/L Chloride (98-107) mmol/L Carbon Dioxide (21-32) mmol/L Anion Gap (3-11) BUN (7-18) mg/dl Creatinine (0.6-1.2) mg/dl Est Cr Clr Drug Dosing ml/min Est GFR ( Amer) Est GFR (Non-Af Amer) BUN/Creatinine Ratio (10-20) Glucose (70-99) mg/dl POC Glucose 390 H* (70-99) Calcium (8.5-10.1) mg/dl Phosphorus (2.5-4.9) mg/dl Magnesium (1.8-2.4) mg/dl Total Bilirubin (0.2-1) mg/dl AST (15-37) U/L ALT (12-78) U/L Alkaline Phosphatase (45-117) U/L Troponin I (0-0.045) ng/ml Total Protein (6.4-8.2) gm/dl Albumin (3.4-5.0) gm/dl Globulin (2.5-4.0) gm/dl Albumin/Globulin Ratio (0.9-2) Beta-Hydroxybutyric Acd (0.2-2.81) mg/dl Imaging Data Radiologist's Impression: Radiology results as stated below per my review and the radiologist's interpretation: CT cervical spine wo con CT DOSE: HISTORY: Trauma Fall TECHNIQUE: Multiaxial CT images of the cervical spine were performed and reformatted in the sagittal and coronal plane without the use of contrast. A dose lowering technique was utilized adhering to the principles of ALARA. COMPARISON: None. FINDINGS: No fractures. No subluxation. Prevertebral soft tissues and the C1-C2 interval are intact. No pneumothorax. Moderate degenerative disc change. IMPRESSION: 1. No acute process. 2. Moderate degenerative disc change.: The above report was generated using voice recognition software. It may contain grammatical, syntax or spelling errors. Electronically signed by: Des Barraza M.D. 05/28/2019 11:[address] head/brain wo con CT DOSE: 1051.15 mGy.cm HISTORY: Trauma Fall TECHNIQUE: Multiaxial CT images of the head were performed without the use of intravenous contrast. A dose lowering technique was utilized adhering to the principles of ALARA. Comparison: 02/18/2019 Findings: The paranasal sinuses and mastoid air cells are clear. The calvarium and skull base are intact. The ventricles and sulci are within normal limits. There is no mass, hematoma, midline shift, or acute infarct. Impression: No acute intracranial abnormality. Mild age-related atrophy and chronic small vessel change The above report was generated using voice recognition software. It may contain grammatical, syntax or spelling errors. Electronically signed by: Des Barraza M.D. 05/28/2019 11:51 AM XR chest 1V portable CLINICAL HISTORY: fall trauma COMPARISON STUDY: 02/16/2018 FINDINGS: The bones soft tissues and hemidiaphragms are normal. The cardiomediastinal silhouette is normal. The lungs are clear. The pulmonary vasculature is normal. IMPRESSION: Negative chest. The above report was generated using voice recognition software. It may contain grammatical, syntax or spelling errors. Electronically signed by: Des Barraza M.D. 05/28/2019 12:35 PM ADDENDUM Review of the right elbow images shows a nondisplaced right lateral humeral supracondylar fracture. Electronically signed by: Des Barraza M.D. 05/28/2019 12:32 PM ADDENDUM END XR elbow RT min 3V routine CLINICAL HISTORY: Extremity Trama pain COMPARISON: None. DISCUSSION: The bones and joint spaces appear intact. There is no evidence of fracture, dislocation or bony disease. There is no evidence for soft tissue swelling. IMPRESSION: Negative study. The above report was generated using voice recognition software. It may contain grammatical, syntax or spelling errors. Electronically signed by: Des Barraza M.D. 05/28/2019 12:29 PM XR forearm RT 2V CLINICAL HISTORY: Extremity Trama trauma COMPARISON: None. DISCUSSION: Nondisplaced cortical fracture of the right lateral elbow supracondylar region. Remainder of the forearm is unremarkable. Mild degenerative change is present. There is no evidence for soft tissue swelling. IMPRESSION: Fracture of the right supracondylar region of the right elbow. The r emainder of the study is negative. The above report was generated using voice recognition software. It may contain grammatical, syntax or spelling errors. Electronically signed by: Des Barraza M.D. 05/28/2019 12:33 PM XR hand RT min 3V routine CLINICAL HISTORY: Extremity Trama trauma COMPARISON: None. DISCUSSION: Fracture distal aspect fifth metacarpal. Localized soft tissue edema. No additional acute bony abnormality. Moderate generalized degenerative change. IMPRESSION: Nondisplaced oblique fracture distal aspect fifth metacarpal. The above report was generated using voice recognition software. It may contain grammatical, syntax or spelling errors. Electronically signed by: Des Barraza M.D. 05/28/2019 12:34 PM XR wrist RT min 3V routine CLINICAL HISTORY: Extremity Trama COMPARISON: None. DISCUSSION: Generalized degenerative change. Old avulsion of ulnar styloid. Soft tissue vascular calcification. Mild soft tissue edema IMPRESSION: Generalized degenerative change. Soft tissue edema. No acute bony abnormality. The above report was generated using voice recognition software. It may contain grammatical, syntax or spelling errors. Electronically signed by: Des Barraza M.D. 05/28/2019 12:33 PM ECG Data Attestation: I personally reviewed and interpreted this ECG as follows: Indication: weakness Rate (beats per minute): 76 Rhythm: normal sinus Findings: no PAC, no PVC, no ST depression, no ST elevation, no acute ischemic change and no ectopy Blood Pressure Blood Pressure Findings: Elevated blood pressure Blood Pressure Disposition: further management by hospitalist ANGELICA Yin The patient is a pleasant 63-year-old woman with a past medical history of PE/DVT on Coumadin, CAD, PAD who presents emergency department with multiple falls with fall today onto her right elbow with subsequent pain and resolving ecchymosis of her right forehead after a fall on Thursday per hpi. Patient reports she has had intermittent tinnitis and vertigo, which may have contributed to her falls but does not have sx at this time. On arrival the patient is uncomfortable but no acute distress, afebrile stable vital signs. On exam the patient has resolving ecchymosis to the right frontal forehead without hematoma. She is neurologically intact. She has tenderness of the right lateral aspect of her elbow with full range of motion intact although causes significant discomfort. Distal PMS intact. She has mild tenderness to the dorsal aspect of the right wrist as well as hand. WBC 4.7, nonspecific. H/H / similar to prior range of values. Platelets wnl. INR 1.4, subtherapeutic. Initial glucose 403 but without acidosis on chemistry. Magnesium 1.6 with repletion provided. LFTs unremarkable. Troponin negative/undetectable. EKG without overt acute ischemia. Plain films of the right elbow and wrist demonstrate nondisplaced lateral supracondylar fracture and nondisplaced fracture of the fifth meta carpal. Patient was splinted. Given the patient already had ambulatory difficulty with her cane with 2 falls in the past week and now with limited mobility due to her supracondylar fracture we did look into possible placement however given her insurance she will require admission pain control, PT/OT eval, and likely placement. Patient is agreeable with plan for admission. Thus, resident Dr. Michi Dejesus, discussed the case with Lulu Abdullahi PA-C, who evaluate the patient for admission. This patient was managed with the assistance of resident, Dr. Michi Dejesus. I discussed the case with the resident, examined the patient, and confirm the findings and plan as documented in this note. Impression & Plan Nondisplaced supracondylar fracture of right humerus without intercondylar fracture, Nondisplaced fracture of fifth metatarsal bone, Subtherapeutic international normalized ratio (INR), Hyperglycemia, Hypomagnesemia, Contusion of scalp Discharge Plan Visit Data *Final* Discharge Date/Time: 05/28/19 15:25 Chief Complaint: Elbow Injury/Pain Stated Complaint: FELL, B/L EARS RINGING, VERTIGO, RT ELBOW INJURY ED Provider: Getachew Contreras ED Midlevel Provider: Michi Dejesus Discharge Problem: Nondisplaced supracondylar fracture of right humerus without intercondylar fracture, Nondisplaced fracture of fifth metatarsal bone, Subtherapeutic international normalized ratio (INR), Hyperglycemia, Hypomagnesemia, Contusion of scalp Patient Disposition: Admitted As Inpatient Discharge Instructions Interventions: ED Discharge Assessment Last Done: 05/28/19 15:25 Discharge Problem: Nondisplaced supracondylar fracture of right humerus without intercondylar fracture Qualifiers: Encounter type: initial encounter Fracture type: closed Fracture morphology: simple Qualified Code(s): S42.414A - Nondisplaced simple supracondylar fracture without intercondylar fracture of right humerus, initial encounter for closed fracture Nondisplaced fracture of fifth metatarsal bone Qualifiers: Encounter type: initial encounter Fracture type: closed Laterality: right Qualified Code(s): S92.354A - Nondisplaced fracture of fifth metatarsal bone, right foot, initial encounter for closed fracture Contusion of scalp Qualifiers: Encounter type: initial encounter Qualified Code(s): S00.03XA - Contusion of scalp, initial encounter The scribe's documentation has been prepared under my direction and personally reviewed by me in its entirety. I confirm that the note above accurately reflects all work, treatment, procedures, and medical decision making performed by me.
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
[2019-05-28] MEDS ORDERED: DC ALL PREVIOUSLY ORDERED DIABETES MEDS ONE (15:43)
[2019-05-28] MEDS ORDERED: ALUMINUM/MAGNESIUM SUSP 30 ML UDC PO PRN (15:43)
[2019-05-28] MEDS ORDERED: GLUCOSE 40% GEL 15 GM TUBE PO PRN (15:43)
[2019-05-28] MEDS ORDERED: MAGNESIUM HYDROXIDE SUSP 30 ML UDC PO PRN (15:43)
[2019-05-28] MEDS ORDERED: GLUCOSE 10 TABS/TUBE PO PRN (15:43)
[2019-05-28] MEDS ORDERED: SODIUM CHLORIDE 0.9% 1000ML 1,000 ML IV SCH (15:43)
[2019-05-28] MEDS ORDERED: POLYETHYLENE (MIRALAX) 17 GM PACK PO PRN (15:43)
[2019-05-28] MEDS ORDERED: CARBOHYDRATES FOR HYPOGLYCEMIA PO PRN (15:43)
[2019-05-28] MEDS ORDERED: ACETAMINOPHEN 325 MG TAB PO PRN (15:43)
[2019-05-28] MEDS ORDERED: DEXTROSE 50% 50 ML SYRINGE IV PRN (15:43)
[2019-05-28] MEDS ORDERED: GLUCAGON FOR INJ 1 MG VIAL SQ PRN (15:43)
[2019-05-28] MEDS ORDERED: ONDANSETRON INJ 2 MG/ML 2 ML VIAL IV PRN (15:43)
[2019-05-28] MEDS: SODIUM CHLORIDE 0.9% 1000ML 1,000 ML IV SCH (16:42)
[2019-05-28] MEDS: WARFARIN SOD 5 MG TAB PO SCH (17:01)
[2019-05-28] MEDS: INSULIN ASPART 100 UNITS/ML 3 ML PEN SC SCH ×2 (17:28→22:09)
[2019-05-28 18:26] LABS: Calcium 8.4 mg/dl (8.5-10.1); Creatinine Clr Calc Pharmacy 55.5 ml/min; Est GFR (Non-African American) 59.5
[2019-05-28 18:27] LABS: Albumin Globulin Ratio 0.8 (0.9-2); BUN Creatinine Ratio 16.3 (10-20); Globulin 3.6 gm/dl (2.5-4.0); Total Protein 6.6 gm/dl (6.4-8.2)
[2019-05-28] MEDS ORDERED: INSULIN GLARGINE SOLOSTAR 100 UNITS/ML 3 ML PEN SQ STA (18:39)
[2019-05-28 18:43] LABS: Beta-Hydroxybutyrate 9.3 mg/dl (0.2-2.81)
[2019-05-28] MEDS: TRAMADOL HCL 50 MG TABLET PO PRN (20:04)
[2019-05-28] MEDS: INSULIN GLARGINE SOLOSTAR 100 UNITS/ML 3 ML PEN SC SCH (22:03)
[2019-05-28] MEDS: TRAZODONE HCL 50 MG TAB PO SCH (22:09)
[2019-05-28] MEDS: METOPROLOL TARTRATE 25 MG TAB PO SCH (22:11)
[2019-05-28] MEDS: BuPROPion XL 150 MG TABCR PO SCH (22:11)
[2019-05-29] MEDS: SODIUM CHLORIDE 0.9% 1000ML 1,000 ML IV SCH ×3 (03:34→23:42)
[2019-05-29] MEDS: TRAMADOL HCL 50 MG TABLET PO PRN ×2 (03:51→22:08)
[2019-05-29 05:47] LABS: Basophils # (auto) 0.01 K/uL (0-0.2); Basophils % (auto) 0.2 %; Eosinophils # (auto) 0.26 K/uL (0-0.5); Eosinophils % (auto) 5.7 %; Hematocrit (blood only) 27.8 % (37-47); Hemoglobin 9.4 g/dL (12.0-16.0); Immature Granulocytes # (auto) 0.02 K/uL (0.00-0.02); Immature Granulocytes % (auto) 0.4 %; Lymphocytes # (auto) 1.89 K/uL (1.2-3.4); Lymphocytes % (auto) 41.3 %; Mean Corpuscular Hemoglobin 29.2 pg (25-34); Mean Corpuscular Hgb Conc 33.8 g/dL (32-36); Mean Corpuscular Volume 86.3 fL (80-100); Monocytes # (auto) 0.41 K/uL (0.11-0.59); Neutrophils # (auto) 1.99 K/uL (1.4-6.5); Neutrophils % (auto) 43.4 %; Platelet Count 214 K/uL (130-400); RDW Coefficient of Variation 13.7 % (11.5-14.5); Red Blood Count 3.22 M/uL (4.2-5.4); White Blood Count 4.58 K/uL (4.8-10.8)
[2019-05-29 06:29] LABS: INR 1.4 (0.9-1.1); Prothrombin Time 14.1 Seconds (9.0-12.0)
[2019-05-29 06:41] LABS: Calcium 7.7 mg/dl (8.5-10.1); Creatinine Clr Calc Pharmacy 48.2 ml/min; Est GFR (African American) 58.2; Est GFR (Non-African American) 50.2; Magnesium 1.8 mg/dl (1.8-2.4); Potassium 4.1 mmol/L (3.5-5.1)
[2019-05-29] MEDS ORDERED: MoRPHine SULFATE 4 MG/ML 1 ML CARP\\VIAL IV STA (06:41)
[2019-05-29 07:07] LABS: Beta-Hydroxybutyrate 4.42 mg/dl (0.2-2.81)
[2019-05-29] MEDS ORDERED: INFLUENZA ADMINISTRATION CHARGE ONE (07:45)
[2019-05-29] MEDS ORDERED: INFLUENZA VIRUS QUAD VACCINE 0.5 ML SYR IM ONE (07:45)
[2019-05-29] MEDS: INSULIN ASPART 100 UNITS/ML 3 ML PEN SC SCH ×4 (08:04→21:57)
[2019-05-29] MEDS: INSULIN GLARGINE SOLOSTAR 100 UNITS/ML 3 ML PEN SC SCH ×2 (08:06→21:58)
[2019-05-29] MEDS: ISOSORBIDE MONO EXTENDED REL 30 MG TABCR PO SCH (08:07)
[2019-05-29] MEDS: ASPIRIN 81 MG ECTAB PO SCH (08:07)
[2019-05-29] MEDS: METOPROLOL TARTRATE 25 MG TAB PO SCH ×2 (08:07→21:56)
[2019-05-29] MEDS: BuPROPion XL 150 MG TABCR PO SCH ×2 (08:07→21:57)
[2019-05-29] MEDS: ATORVASTATIN 40 MG TAB PO SCH (08:08)
[2019-05-29] MEDS: LOSARTAN POTASSIUM 50 MG TAB PO SCH (08:08)
[2019-05-29] MEDS: CLOPIDOGREL BISULFATE 75 MG TAB PO SCH (08:08)
[2019-05-29] MEDS: PANTOprazole 40 MG TAB PO SCH (08:08)
[2019-05-29] MEDS: MAGNESIUM SULFATE / D5W 1 GM/100 ML BAG IV SCH ×2 (08:32→09:33)
--- NOTE | 2019-05-29 08:59 | Consultation Report ---
DATE OF CONSULTATION: 05/29/2019 CHIEF COMPLAINT: Right arm injury. HISTORY OF PRESENT ILLNESS: The patient is a 63-year-old female with multiple medical comorbidities who is well known to me from previous right hip replacement several years ago. I just saw her recently status post a fall with a greater trochanter fracture on the right hip. She does live alone and she has been back to living alone and ambulating reasonably well and then just yesterday, lost her balance and fell and injured her right arm. She denies any other injuries. No head injury, no loss of consciousness, no neck pain. No further hip pain. She was diagnosed with a fracture, put in a splint and admitted and we have been consulted. PAST MEDICAL HISTORY: Past medical history is significant for: 1. Diabetes. 2. Coronary artery disease. 3. History of DVT/PE in the past and on chronic anticoagulation. 4. Anxiety/depression. 5. History of Helicobacter infection. 6. History of ovarian cancer. 7. Peripheral artery disease. 8. Coronary artery disease, status post stent placement, on Plavix. The remainder of the past medical history is per the admission H and P. OBJECTIVE: VITAL SIGNS: Temperature is 36.8. Vital signs stable. GENERAL: Shows a pleasant elderly female. She is sitting up in bed, looks completely comfortable. She really denies any complaints other than pain in her right arm which is splinted. Examination of the right arm reveals a posterior splint with extension out to include her fourth and fifth fingers to be in place. There is no visible deformity. No real palpable tenderness. She can flex or extend her fingers appropriately. She has got brisk refill. X-RAYS: I did review all of her x-rays. X-rays of the right hand reveal a minimally displaced 5th metacarpal neck fracture without significant angulation. Diffuse osteopenia. X-rays of the elbow reveal a small nondisplaced crack through the lateral aspect of her condyle. There is no real detectable elbow effusion. Everything else is well aligned. CT scan of the cervical spine as well as the head are negative. ASSESSMENT: A 63-year-old female with multiple medical comorbidities, had a host of her recent falls with injuries. It does look like she has got a minimally displaced 5th metacarpal neck fracture and a small crack in her distal humerus which is completely nondisplaced, and I am not even sure it goes to the whole way through the bone. Does correlate with her area of symptoms. PLAN: At this point from the orthopedic standpoint, she is in a posterior splint, which is appropriate. This is not going to require surgery. She does have a sling and she should be wearing the sling and I need to see her back in about a week to convert this to a cast. We will have to assess the healing and to begin motion probably in 3-4 weeks. Otherwise, she just needs to leave the splint clean, dry and intact and I will see her in about somewhere between 1-2 weeks. No further intervention is warranted from my standpoint. She can weightbear as tolerated on her legs. The bigger issue is the multiple falls. Eventually, she is going to hurt some and this going to be more severe. We will leave the medical workup for her recurrent falls up to the medicine service. Any orthopedic questions can be directed to me at [phone].
[2019-05-29] MEDS ORDERED: PHARMACY GLYCEMIC MGMT CONSULT PRN (12:38)
[2019-05-29] MEDS ORDERED: INSULIN HUMAN REGULAR PER UNIT 8 UNITS in SYRINGE 7.92 ML IV ONE (13:30)
[2019-05-29] MEDS ORDERED: INSULIN ASPART 100 UNITS/ML 3 ML PEN SC ONE (13:45)
[2019-05-29] MEDS ORDERED: ACETAMINOPHEN 325 MG TAB PO PRN (14:09)
--- NOTE | 2019-05-29 14:19 | Hospitalist Progress Note ---
Date of Service May 29, 2019 Assessment & Plan (1) Status post fall: Nondisplaced oblique fracture distal aspect fifth metacarpal and Fracture of the right supracondylar region of the right elbow -as per orthopedics; she is in a posterior splint, which is appropriate. This is not going to require surgery. She does have a sling and she should be wearing the sling -outpatient orthopedic follow up with Dr Lagos or his colleagues in 1 week for cast -PT/OT evaluations -consider possibility of Diabetic neuropathy as contributory to falls (2) Helicobacter pylori (H. pylori): Tinnitus -Patient reports that Tinnitus symptoms associated with metronidazole and tetracycline for H. pylori secondary to colonoscopy after bouts of diarrhea.Medications prescribed 05/04/2019 for 2-week course -possible that Tinnitus is a medication side effect and will hold metronidazole and tetracycline -Continue with pantoprazole 40 mg daily (3) Diabetes: Type 2 diabetes mellitus with tank terminal gauger current use of insulin, mild diabetic ketoacidosis without coma -Blood sugar of 400 on ED presentation on 05/28/19 and elevated beta hydroxybutyrate with normal anion gap suggestive of only mild diabetic ketoacidosis without coma -patient's blood sugars has been persistently above 300 despite IV fluids and subcutaneous insulin -given persistently elevated glucose above 300s, patient is not medically optimized fro hospital discharge. Patient agrees and patient will be upgraded from observation status to full admission status as of 05/29/19 -pharmacy glycemic consult requested (4) Electrolyte imbalance: Hypomagnesemia -serum magnesium 1.6 on admission and patient received IV magnesium supplements -continue magnesium supplements as oral medication BID for now (5) Anxiety and depression: -Continue trazodone, vitamin D, Wellbutrin SR, Lexapro (6) Hypertension: -continue losartan and metoprolol (7) CAD (coronary artery disease): -History of PCI with bare-metal stent placement to LAD in 2018 -Continues on aspirin, clopidogrel, metoprolol (8) Chronic anticoagulation: Chronic anticoagulation History of Pulmonary embolism and History of Deep Vein Thrombosis in the distant past positive for MTHFR with elevated homocystine -patient recalls that last known blood clot was 2 years ago -coumadin use at home -patient admitted with subtherapeutic levels of INR 1.4 -because blood clots were from long time ago, there does not need to be urgent need of systemic anticoagulation, will have DVT prophylaxis dosing of heparin subcutaneous q8 hours with daily coumadin. will stop heparin subcutaneous when INR is 2 or if patient is discharged (9) DVT prophylaxis: will have DVT prophylaxis dosing of heparin subcutaneous q8 hours with daily coumadin. will stop heparin subcutaneous when INR is 2 or if patient is discharged Subjective Discussed with patient that orthopedics did not recommend surgical interventions - Patient's right arm in sling. Patient reports understanding. However given persistently elevated glucose above 300s, patient is not medically optimized fro hospital discharge. Patient agrees and patient will be upgraded from observation status to full admission status patient denies vomiting or abdominal pain. denies chest pain. no shortness of breath. no dizziness. no headache Physical Exam Constitutional: comfortable Eyes: PERRL, conjunctivae normal, anicteric sclerae EOM intact bilaterally ENMT: external ear and nose normal, oropharynx normal Neck: trachea midline, no thyromegaly Respiratory: normal respiratory effort, lungs clear to auscultation Cardiovascular: Rate/Rhythm: regular rhythm Gastrointestinal (Abdomen): normal bowel sounds, soft, nontender, no hepatosplenomegaly Musculoskeletal: Head/Neck/Chest: normocephalic and head atraumatic right arm in sling Neurologic: PERRL, EOMI, accommodation nl, no face palsy, no dysarthria Psychiatric: A+Ox3, euthymic affect Results & Data Vital Signs (Past 12 Hours) Vital Signs Temp Pulse Pulse Resp BP Pulse Ox 05/29/19 08:15 66 05/29/19 03:59 36.8 C 69 18 151/82 H 96
--- NOTE | 2019-05-29 14:25 | Pharmacy Report ---
Pharmacy Glycemic Short Note 2 - Date of Service May 29, 2019 - Glycemic Short BSG Results (Last 24 hours): 05/28/19 05/28/19 05/28/19 16:55 16:56 17:25 Glucose 322 H* POC Glucose 338 H* 353 H* 05/28/19 05/28/19 05/29/19 19:59 21:51 05:27 Glucose 325 H* POC Glucose 300 H 229 H 05/29/19 05/29/19 05/29/19 07:50 07:51 11:39 Glucose POC Glucose 317 H* 346 H* 302 H* 05/29/19 11:40 Glucose POC Glucose 329 H* OUTPATIENT ANTIDIABETIC REGIMEN: * Novolin 70/30 50 units qAM, 60 units qPM * metformin 500 mg PO BID * semaglutide (per H&P - not on med rec) * A1c pending ASSESSMENT: * Sara is a 63 yr old T2DM female s/p recent fall resulting in a nondisplaced fracture of the elbow and of the fifth metacarpal * Current degree of outpatient glycemic control is unknown. Most recent A1c of 12.9% from Sep 2017 * BSGs have mostly been in the mid-high 300's since the time of admission. Sara was started on Lantus per the Hospital service. * Fasting BSG = 349 mg/dL, therefore Lantus dose will be increased. I have used her home dose of ~110 units per day + stress of 2 to calculate doses. * Post prandial BSGs are severely elevated. I will tighten Novolog CF and CR. I also ordered a one time 8 unit IV regular insulin bolus at 1330. * I am concerned that we will not be able to obtain adequate glycemic control using SQ insulin since the patient has been severely hyperglycemia for > 24 hours and is likely insulin resistant at this time. I will enter a pending order for an IV insulin infusion to be started if hyperglycemia persists. PLAN FOR INPATIENT GLYCEMIC CONTROL: * Hold outpatient oral diabetes medications * Basal insulin - increase * Lantus 24 units was given this AM * Change to Lantus SQ BID per scale: * 20 units for BSG < 140 * 28 units for BSG 140-180 * 36 units for BSG > 180 * Bolus insulin - tighten * NovoLog per scale ACHS or Q6hrs while NPO * Goal Range: Low 110 mg/dL - High 140 mg/dL * Correction Factor: 15 mg/dL/unit * Nutritional / Prandial insulin per carb ratio of 1 unit per 4 grams CHO consumed * Add overnight checks at 00 and 04 Pending order: If BSG is greater than 250 mg/dL x 2 consecutive checks, initiate IV insulin infusion per hyperglycemia protocol. High stress - goal range 110-180 PLAN FOR DISCHARGE: * A1c pending
[2019-05-29] MEDS ORDERED: MAGNESIUM OXIDE 400 MG TAB PO STA (14:31)
[2019-05-29] MEDS: HEPARIN SOD 5,000 UNIT/0.5 ML VIAL SQ SCH ×2 (15:38→21:59)
[2019-05-29] MEDS: [UNRECOGNIZED DRUG - OTHER] SCH ×3 (16:44→23:46)
[2019-05-29] MEDS: WARFARIN SOD 5 MG TAB PO SCH (16:44)
[2019-05-29] MEDS ORDERED: HEPARIN SOD 5,000 UNIT/0.5 ML VIAL SQ SCH (21:00)
[2019-05-29] MEDS: TRAZODONE HCL 50 MG TAB PO SCH (21:55)
[2019-05-29] MEDS: MAGNESIUM OXIDE 400 MG TAB PO SCH (21:56)
[2019-05-30] MEDS: MoRPHine SULFATE 4 MG/ML 1 ML CARP\\VIAL IV PRN ×3 (01:59→16:36)
[2019-05-30] MEDS: ISOSORBIDE MONO EXTENDED REL 30 MG TABCR PO SCH (07:53)
[2019-05-30] MEDS: HEPARIN SOD 5,000 UNIT/0.5 ML VIAL SQ SCH ×2 (07:53→15:34)
[2019-05-30] MEDS: LOSARTAN POTASSIUM 50 MG TAB PO SCH (07:53)
[2019-05-30] MEDS: PANTOprazole 40 MG TAB PO SCH (07:53)
[2019-05-30] MEDS: METOPROLOL TARTRATE 25 MG TAB PO SCH ×2 (07:53→20:51)
[2019-05-30] MEDS: BuPROPion XL 150 MG TABCR PO SCH ×2 (07:54→20:50)
[2019-05-30] MEDS: CLOPIDOGREL BISULFATE 75 MG TAB PO SCH (07:54)
[2019-05-30] MEDS: MAGNESIUM OXIDE 400 MG TAB PO SCH ×2 (07:54→20:50)
[2019-05-30] MEDS: ATORVASTATIN 40 MG TAB PO SCH (07:54)
[2019-05-30 07:55] LABS: Estimated Average Glucose 289 mg/dl; Hemoglobin A1C 11.7 % (4.5-5.6)
[2019-05-30] MEDS: ASPIRIN 81 MG ECTAB PO SCH (07:55)
[2019-05-30] MEDS: INSULIN GLARGINE SOLOSTAR 100 UNITS/ML 3 ML PEN SC SCH ×2 (07:56→20:51)
[2019-05-30] MEDS: INSULIN ASPART 100 UNITS/ML 3 ML PEN SC SCH ×4 (08:03→20:52)
[2019-05-30 08:12] LABS: Hematocrit (blood only) 27.3 % (37-47); Hemoglobin 9.2 g/dL (12.0-16.0); Mean Corpuscular Hemoglobin 29.7 pg (25-34); Mean Corpuscular Hgb Conc 33.7 g/dL (32-36); Mean Corpuscular Volume 88.1 fL (80-100); Mean Platelet Volume 8.8 fL (7.4-10.4); Platelet Count 198 K/uL (130-400); RDW Standard Deviation 44.3 fL (36.4-46.3); White Blood Count 3.85 K/uL (4.8-10.8)
[2019-05-30 08:22] LABS: INR 1.8 (0.9-1.1); Prothrombin Time 17.5 Seconds (9.0-12.0)
[2019-05-30 08:36] LABS: Basophils # (auto) 0.02 K/uL (0-0.2); Basophils % (auto) 0.5 %; Eosinophils # (auto) 0.21 K/uL (0-0.5); Eosinophils % (auto) 5.5 %; Immature Granulocytes # (auto) 0.03 K/uL (0.00-0.02); Immature Granulocytes % (auto) 0.8 %; Lymphocytes # (auto) 2.07 K/uL (1.2-3.4); Lymphocytes % (auto) 53.8 %; Monocytes # (auto) 0.33 K/uL (0.11-0.59); Monocytes % (auto) 8.6 %; Neutrophils # (auto) 1.19 K/uL (1.4-6.5); Neutrophils % (auto) 30.8 %
[2019-05-30 08:47] LABS: Albumin Level 2.6 gm/dl (3.4-5.0); BUN Creatinine Ratio 18.6 (10-20); Creatinine Clr Calc Pharmacy 47.9 ml/min; Est GFR (Non-African American) 49.2; Magnesium 2.1 mg/dl (1.8-2.4); Potassium 4.5 mmol/L (3.5-5.1)
[2019-05-30 08:50] LABS: Albumin Globulin Ratio 0.8 (0.9-2); Bilirubin,Total 0.5 mg/dl (0.2-1); Globulin 3.1 gm/dl (2.5-4.0); Total Protein 5.7 gm/dl (6.4-8.2)
[2019-05-30] MEDS: SODIUM CHLORIDE 0.9% 1000ML 1,000 ML IV SCH (09:47)
--- NOTE | 2019-05-30 11:58 | Hospitalist Progress Note ---
Date of Service May 30, 2019 Assessment & Plan (1) Status post fall: Nondisplaced oblique fracture distal aspect fifth metacarpal and Fracture of the right supracondylar region of the right elbow -as per orthopedics; she is in a posterior splint, which is appropriate. This is not going to require surgery. She does have a sling and she should be wearing the sling -outpatient orthopedic follow up with Dr Lagos or his colleagues in 1 week for cast -PT/OT evaluations are continuing and case management applied for [facility] after hospital stay -consider possibility of Diabetic neuropathy as contributory to falls (2) Helicobacter pylori (H. pylori): Tinnitus -Patient reports that Tinnitus symptoms associated with metronidazole and tetracycline for H. pylori secondary to colonoscopy after bouts of diarrhea.Medications prescribed 05/04/2019 for 2-week course -possible that Tinnitus is a medication side effect and will hold metronidazole and tetracycline -Continue with pantoprazole 40 mg daily (3) Diabetes: Type 2 diabetes mellitus with meterman current use of insulin, mild diabetic ketoacidosis without coma -Blood sugar of 400 on ED presentation on 05/28/19 and elevated beta hydroxybutyrate with normal anion gap suggestive of only mild diabetic ketoacidosis without coma -patient's blood sugars has been persistently above 300 despite IV fluids and subcutaneous insulin -given persistently elevated glucose above 300s, patient is not medically optimized fro hospital discharge. Patient agrees and patient will be upgraded from observation status to full admission status as of 05/29/19 -pharmacy glycemic consult continue to manage the patient. currently remains on subcutaneous insulin. agree with their management. while insulin IV can be considered if labs were to worsen, the patient is mentating well. her HBA1c is 11.7 and her 2018 hospital labs of 12.7 suggests halfway poor control. giving subcutaneous insulin will help more with discharge planning rather than IV insulin (4) Electrolyte imbalance: Hypomagnesemia -serum magnesium 1.6 on admission and patient received IV magnesium supplements -continue magnesium supplements as oral medication BID for now -serum magnesium is 2.1 on 05/30/19 (5) Anxiety and depression: -Continue trazodone, vitamin D, Wellbutrin SR, Lexapro (6) Hypertension: -continue losartan and metoprolol (7) CAD (coronary artery disease): -History of PCI with bare-metal stent placement to LAD in 2018 -Continues on aspirin, clopidogrel, metoprolol (8) Chronic anticoagulation: Chronic anticoagulation History of Pulmonary embolism and History of Deep Vein Thrombosis in the distant past positive for MTHFR with elevated homocystine -patient recalls that last known blood clot was 2 years ago -coumadin use at home -patient admitted with subtherapeutic levels of INR 1.4 -because blood clots were from long time ago, there does not need to be urgent need of systemic anticoagulation, will have DVT prophylaxis dosing of heparin subcutaneous q8 hours with daily coumadin until INR is 2 to 3 -INR is 1.8 on 05/30/19, continue subcutanous heparin with daily coumadin (9) DVT prophylaxis: DVT prophylaxis dosing of heparin subcutaneous q8 hours with daily coumadin. will stop heparin subcutaneous when INR is 2 Subjective Patient blood glucose still elevated above 300. Patient reports she has worked with therapist. she reported some stumbling but regained her balance and did nit fall down. she reports the tinnitus symptoms are improved. no dizziness. no lightheadedness. no chest pain. no shortness of breath. no abdominal pain. no vomiting Physical Exam Constitutional: comfortable Eyes: PERRL, conjunctivae normal, anicteric sclerae EOM intact bilaterally ENMT: external ear and nose normal, oropharynx normal Neck: trachea midline, no thyromegaly Respiratory: normal respiratory effort, lungs clear to auscultation Cardiovascular: Rate/Rhythm: regular rhythm Gastrointestinal (Abdomen): normal bowel sounds, soft, nontender, no hepatosplenomegaly Musculoskeletal: Head/Neck/Chest: normocephalic and head atraumatic right arm in sling Neurologic: PERRL, EOMI, accommodation nl, no face palsy, no dysarthria Psychiatric: A+Ox3, euthymic affect Results & Data Vital Signs (Past 12 Hours) Vital Signs Temp Pulse Resp BP Pulse Ox 05/30/19 07:34 36.9 C 68 18 144/81 H 96
[2019-05-30] MEDS ORDERED: INSULIN GLARGINE SOLOSTAR 100 UNITS/ML 3 ML PEN SC STA (12:25)
[2019-05-30] MEDS ORDERED: INSULIN HUMAN REGULAR PER UNIT 8 UNITS in SYRINGE 7.92 ML IV ONE (12:30)
[2019-05-30] MEDS: WARFARIN SOD 5 MG TAB PO SCH (15:33)
--- NOTE | 2019-05-30 16:06 | Pharmacy Report ---
Pharmacy Glycemic Short Note 2 - Date of Service May 30, 2019 - Glycemic Short BSG Results (Last 24 hours): 05/29/19 05/29/19 05/29/19 16:17 20:13 23:46 Glucose POC Glucose 164 H 105 H 169 H 05/30/19 05/30/19 05/30/19 07:48 07:53 11:38 Glucose 224 H POC Glucose 234 H 301 H* 05/30/19 05/30/19 11:38 14:24 Glucose POC Glucose 327 H* 202 H OUTPATIENT ANTIDIABETIC REGIMEN: * Novolin 70/30 50 units qAM, 60 units qPM * metformin 500 mg PO BID * semaglutide (per H&P - not on med rec) * A1c pending ASSESSMENT: 05/30/19: * Ms Garcia's BSGs continue to be significantly elevated today. * Additional basal insulin provided at lunchtime, along with an IV insulin bolus. * Novolog parameters tightened to provide additional correction. * Patient may require the addition of an IV insulin infusion if unable to control with SQ insulin. Will defer decision to switch to IV insulin to provider. 05/29 * Sara is a 63 yr old T2DM female s/p recent fall resulting in a nondisplaced fracture of the elbow and of the fifth metacarpal * Current degree of outpatient glycemic control is unknown. Most recent A1c of 12.9% from Sep 2017 * BSGs have mostly been in the mid-high 300's since the time of admission. Sara was started on Lantus per the Hospital service. * Fasting BSG = 349 mg/dL, therefore Lantus dose will be increased. I have used her home dose of ~110 units per day + stress of 2 to calculate doses. * Post prandial BSGs are severely elevated. I will tighten Novolog CF and CR. I also ordered a one time 8 unit IV regular insulin bolus at 1330. * I am concerned that we will not be able to obtain adequate glycemic control using SQ insulin since the patient has been severely hyperglycemia for > 24 hours and is likely insulin resistant at this time. I will enter a pending order for an IV insulin infusion to be started if hyperglycemia persists. PLAN FOR INPATIENT GLYCEMIC CONTROL: * Hold outpatient oral diabetes medications * Basal insulin - increase * Lantus 36 units was given this AM, plus 15 units at lunch-time * Lantus SQ this evening per scale: * 20 units for BSG < 140 * 28 units for BSG 140-180 * 36 units for BSG > 180 * Bolus insulin - tighten * NovoLog per scale ACHS or Q6hrs while NPO * Goal Range: Low 110 mg/dL - High 140 mg/dL * Correction Factor: 10 mg/dL/unit * Nutritional / Prandial insulin per carb ratio of 1 unit per 4 grams CHO consumed * Add overnight checks at 00 and 04 Pending order: If BSG is greater than 250 mg/dL x 2 consecutive checks, consider IV insulin infusion per hyperglycemia protocol. High stress - goal range 110-180 PLAN FOR DISCHARGE: * A1c pending
[2019-05-30] MEDS: TRAZODONE HCL 50 MG TAB PO SCH (20:49)
[2019-05-31] MEDS: HEPARIN SOD 5,000 UNIT/0.5 ML VIAL SQ SCH ×2 (00:15→08:55)
[2019-05-31] MEDS: INSULIN ASPART 100 UNITS/ML 3 ML PEN SC SCH ×4 (00:16→12:09)
[2019-05-31 07:44] LABS: Albumin Level 2.6 gm/dl (3.4-5.0); BUN Creatinine Ratio 18.2 (10-20); Calcium 8.6 mg/dl (8.5-10.1); Creatinine Clr Calc Pharmacy 48.3 ml/min; Est GFR (African American) 57.6; Est GFR (Non-African American) 49.7; Magnesium 1.8 mg/dl (1.8-2.4); Potassium 4.4 mmol/L (3.5-5.1)
[2019-05-31 07:47] LABS: Albumin Globulin Ratio 0.8 (0.9-2); Bilirubin,Total 0.5 mg/dl (0.2-1); Globulin 3.4 gm/dl (2.5-4.0)
[2019-05-31] MEDS: INSULIN GLARGINE SOLOSTAR 100 UNITS/ML 3 ML PEN SC SCH (08:54)
[2019-05-31] MEDS: MoRPHine SULFATE 4 MG/ML 1 ML CARP\\VIAL IV PRN ×2 (09:05→13:03)
[2019-05-31] MEDS: ASPIRIN 81 MG ECTAB PO SCH (09:10)
[2019-05-31] MEDS: LOSARTAN POTASSIUM 50 MG TAB PO SCH (09:10)
[2019-05-31] MEDS: ISOSORBIDE MONO EXTENDED REL 30 MG TABCR PO SCH (09:10)
[2019-05-31] MEDS: MAGNESIUM OXIDE 400 MG TAB PO SCH (09:11)
[2019-05-31] MEDS: METOPROLOL TARTRATE 25 MG TAB PO SCH (09:11)
[2019-05-31] MEDS: ATORVASTATIN 40 MG TAB PO SCH (09:11)
[2019-05-31] MEDS: PANTOprazole 40 MG TAB PO SCH (09:12)
[2019-05-31] MEDS: BuPROPion XL 150 MG TABCR PO SCH (09:12)
[2019-05-31] MEDS: CLOPIDOGREL BISULFATE 75 MG TAB PO SCH (09:12)
--- NOTE | 2019-05-31 10:04 | Pharmacy Report ---
Pharmacy Glycemic Short Note 2 - Date of Service May 31, 2019 - Glycemic Short BSG Results (Last 24 hours): 05/30/19 05/30/19 05/30/19 11:38 11:38 14:24 Glucose POC Glucose 301 H* 327 H* 202 H 05/30/19 05/30/19 05/31/19 16:11 19:58 00:14 Glucose POC Glucose 154 H 116 H 131 H 05/31/19 05/31/19 05/31/19 04:08 06:57 07:12 Glucose 199 H POC Glucose 213 H 211 H OUTPATIENT ANTIDIABETIC REGIMEN: * Novolin 70/30 50 units qAM, 60 units qPM * metformin 500 mg PO BID * semaglutide (per H&P - not on med rec) * A1c pending ASSESSMENT: 05/31/19: * Ms. Engel BSG continued to be elevated yesterday morning, down to goal range for dinner/hs * Fasting again elevated today although trending down- patient received 71 units of basal yesterday, continue to titrate up * Prandial BSGs improved with correction factor/carb ratio tightened- will continue this for now * Received 146 units of insulin yesterday- 46% more than the previous day. 05/30/19: * Ms Engel BSGs continue to be significantly elevated today. * Additional basal insulin provided at lunchtime, along with an IV insulin bolus. * Novolog parameters tightened to provide additional correction. * Patient may require the addition of an IV insulin infusion if unable to control with SQ insulin. Will defer decision to switch to IV insulin to provider. 05/29 * Sara is a 63 yr old T2DM female s/p recent fall resulting in a nondisplaced fracture of the elbow and of the fifth metacarpal * Current degree of outpatient glycemic control is unknown. Most recent A1c of 12.9% from Sep 2017 * BSGs have mostly been in the mid-high 300's since the time of admission. Sara was started on Lantus per the Hospital service. * Fasting BSG = 349 mg/dL, therefore Lantus dose will be increased. I have used her home dose of ~110 units per day + stress of 2 to calculate doses. * Post prandial BSGs are severely elevated. I will tighten Novolog CF and CR. I also ordered a one time 8 unit IV regular insulin bolus at 1330. * I am concerned that we will not be able to obtain adequate glycemic control using SQ insulin since the patient has been severely hyperglycemia for > 24 hours and is likely insulin resistant at this time. I will enter a pending order for an IV insulin infusion to be started if hyperglycemia persists. PLAN FOR INPATIENT GLYCEMIC CONTROL: * Hold outpatient oral diabetes medications * Basal insulin - increase * Lantus 36 units was given this AM, plus 15 units at lunch-time * Lantus SQ this evening per scale: * 20 units for BSG < 140 * 28 units for BSG 140-180 * 36 units for BSG > 180 * Bolus insulin - tighten * NovoLog per scale ACHS or Q6hrs while NPO * Goal Range: Low 110 mg/dL - High 140 mg/dL * Correction Factor: 10 mg/dL/unit * Nutritional / Prandial insulin per carb ratio of 1 unit per 4 grams CHO consumed * Add overnight checks at 00 and 04 PLAN FOR DISCHARGE: * A1c 11.7%, given significantly elevated A1c would attempt to slowly titrate outpatient regimen and target a goal A1c of <8% for now and can work to a more agressive A1c goal. * For discharge would start with following changes: * increase novolin 70/30: 65 units BIDM (breakfast/dinner) this is ~20% increase in total dose * Titrate metformin to goal dose of 1000 mg BIDM * Continue semaglutide
--- NOTE | 2019-05-31 11:57 | Hospitalist Progress Note ---
Date of Service May 31, 2019 Assessment & Plan (1) Status post fall: Nondisplaced oblique fracture distal aspect fifth metacarpal and Fracture of the right supracondylar region of the right elbow -as per orthopedics; she is in a posterior splint, which is appropriate. This is not going to require surgery. She does have a sling and she should be wearing the sling -outpatient orthopedic follow up with Dr Lagos or his colleagues in 1 week for cast -PT/OT evaluations are continuing and case management applied for [facility] after hospital stay -consider possibility of Diabetic neuropathy as contributory to falls -05/31/19: Discharge to [facility] for physical rehabilitation Leave right arm splint in place until return to clinic follow-up in Orthopedics Patient should make appointment in 1 to 2 weeks of discharge with Dr. Jose Roberto Lagos or his colleagues at [facility] Address: [address] [place] [address], [place] [address] [place] PDMP was checked and patient does not have any active controlled substance medications prior to this hospital stay Because of the fractures: Nondisplaced oblique fracture distal aspect fifth metacarpal of right hand, Fracture of the right supracondylar region of the right elbow Patient may take acetaminophen 325 mg q6 hours as needed for fever or mild pain Patient may take tramadol 50 mg every 6 hours as needed for moderate to severe pain Patient will need to follow up with a primary care doctor at [facility] for medication adjustments or pain medications or diabetes medications if needed and follow up serum magnesium and INR labs 06/03/2019 10:20 AM Provider [facility] [place] [facility], [place] 06/10/2019 11:50 AM [facility]:10 [facility] 1:20 PM Provider Rachna Briseno MD Department Sleep Disorders, [facility] 08/09/2019 2:00 PM Provider MAITE CORBIN Department Radiology, [place] (2) Helicobacter pylori (H. pylori): Tinnitus -Patient reports that Tinnitus symptoms associated with metronidazole and tetracycline for H. pylori secondary to colonoscopy after bouts of diarrhea.Medications prescribed 05/04/2019 for 2-week course -possible that Tinnitus is a medication side effect and will hold metronidazole and tetracycline from medications (3) Diabetes: Type 2 diabetes mellitus with intermediate accountant current use of insulin, mild diabetic ketoacidosis without coma -Blood sugar of 400 on ED presentation on 05/28/19 and elevated beta hydroxybutyrate with normal anion gap suggestive of only mild diabetic ketoacidosis without coma -patient's blood sugars has been persistently above 300 despite IV fluids and subcutaneous insulin -given persistently elevated glucose above 300s, patient is not medically optimized fro hospital discharge. Patient agrees and patient pgraded from observation status to full admission status as of 05/29/19 -pharmacy glycemic consult continue to manage the patient with subcutaneous Lantus and aspart -as per pharmacy glycemic discharge recommendations: A1c 11.7%, given significantly elevated A1c would attempt to slowly titrate outpatient regimen and target a goal A1c of <8% for now and can work to a more agressive A1c goal. For discharge would start with following changes: increase home novolin 70/30 from 50 units daily and 65 units every night to 65 units BIDM (breakfast/dinner) metformin to goal dose of 1000 mg BIDM (4) Electrolyte imbalance: Hypomagnesemia -serum magnesium 1.6 on admission and patient received IV magnesium supplements -continue magnesium supplements as oral medication BID for now -serum magnesium is 2.1 on 05/30/19, serum magnesium 1.8 on 05/31/19 -Magnesium 400 mg BID for 10 more days on discharge (5) Anxiety and depression: -Continue trazodone, vitamin D, Wellbutrin SR, Lexapro (6) Hypertension: -continue losartan and metoprolol (7) CAD (coronary artery disease): -History of PCI with bare-metal stent placement to LAD in 2018 -Continues on aspirin, clopidogrel, metoprolol (8) Chronic anticoagulation: Chronic anticoagulation History of Pulmonary embolism and History of Deep Vein Thrombosis in the distant past positive for MTHFR with elevated homocystine -patient recalls that last known blood clot was 2 years ago -coumadin use at home -patient admitted with subtherapeutic levels of INR 1.4 -because blood clots were from long time ago, there does not need to be urgent need of systemic anticoagulation, had DVT prophylaxis dosing of heparin subcutaneous q8 hours with daily coumadin until INR is 2 to 3 -on discharge: Continue home dose warfarin 5 mg every Thursday/Thursday/Thursday/Thursday/Thursday and warfarin 2.5 mg every Thursday and . goal INR is 2 to 3. (9) DVT prophylaxis: -on discharge Continue home dose warfarin 5 mg every Thursday/Thursday/Thursday/Thursday/Thursday and warfarin 2.5 mg every Thursday and . goal INR is 2 to 3. Discharge Diagnosis: Nondisplaced oblique fracture distal aspect fifth metacarpal of right hand, Fracture of the right supracondylar region of the right elbow; Type 2 Diabetes Mellitus with intermediate accountant current use of insulin with hyperglycemia versus mild Diabetic Ketoacidosis; Helicobacter pylori (H. pylori); Tinnitus, chronic anticoagulation Subjective Patient seen and examined this AM. Glucose levels are improved compared to first day of admission. Patient tolerates right upper extremity discomforts. Discussed plans about discharge to [facility]. no chest pain. no shortness of breath. breathing on room air. no headache. no dizziness Physical Exam Constitutional: comfortable Eyes: PERRL, conjunctivae normal, anicteric sclerae EOM intact bilaterally ENMT: external ear and nose normal, oropharynx normal Neck: trachea midline, no thyromegaly Respiratory: normal respiratory effort, lungs clear to auscultation Cardiovascular: Rate/Rhythm: regular rhythm Gastrointestinal (Abdomen): normal bowel sounds, soft, nontender, no hepatosplenomegaly Musculoskeletal: Head/Neck/Chest: normocephalic and head atraumatic Extremities: + upper extremity abnormal to inspection (right arm in sling) Neurologic: PERRL, EOMI, accommodation nl, no face palsy, no dysarthria Psychiatric: A+Ox3, euthymic affect Results & Data Vital Signs (Past 12 Hours) Vital Signs Temp Pulse Resp BP Pulse Ox 05/31/19 07:00 37.2 C 77 16 162/85 H 94 05/31/19 00:00 37.0 C 83 20 148/80 H 94
--- NOTE | 2019-05-31 12:06 | Discharge Summary ---
Date of Service May 31, 2019 Admission HPI Per Admitting Provider Is a dee lady with a past medical history of insulin-dependent diabetes mellitus, depression, anxiety, hypertension, history of DVT, history of pulmonary embolus, MTHFR with elevated homocystine, chronic anticoagulation on warfarin, hypomagnesemia, history of falls, history of ovarian cancer, peripheral artery disease, CAD with bare-metal stent placement to the LAD, chronic antiplatelet therapy with clopidogrel. 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 She lives alone and has no children. She has never been . She reports multiple falls over the last several months which are attributed to mechanical fall. She denies any syncope or loss of consciousness and remembers falling and states that her legs got weak or her equilibrium was off. She does report new onset tinnitus and states that she has noticed that she is less stable when her ears are ringing. Her friend is with her and attest that she has had multiple falls over the last several months with some fractures. She denies any long periods of dizziness or headache. She has no history of TIA or CVA. She does have history of thrombotic disease with history of MTHFR with elevated homocystine. She had fracture of her tib-fib and developed DVT to the right leg and subsequent pulmonary emboli. She is currently on warfarin but is haley btherapeutic with an INR of 1.4. She denies any pleuritic pain. No tachycardia. She has no shortness of breath. She has no hemoptysis. She does have ambulatory dysfunction and uses a cane at home. She has no nausea or vomiting. No abdominal pain. No recent diarrhea. She is followed by [facility] gastroenterology. She is currently been treated with metronidazole which she takes infrequently for bacterial overgrowth. She is also on pantoprazole 40 mg daily which she takes as prescribed. She also reports taking Questran as ordered. Regarding her diabetes, she does not know what her current A1c. She uses insulin 70/30 and metformin 50 mg 2 tablets by mouth daily. She also takes semaglutide subcutaneously 0.5 mg weekly. Admission Exam Per Admitting Provider GENERAL : No acute distress. Somewhat flat affect EYES: No icterus, gaze conjugate. Pupils equal round reactive light NOSE: No evidence of epistaxis. MOUTH: No lesions or candidiasis. Mucosa dry NECK: Supple. No stridor or appreciation of bruits LUNGS: CTA B/L, no wheezes, rales or rhonchi. Good inspiratory effort HEART: Regular, rate controlled. ABDOMEN: Soft, NT, ND, BS Present. No guarding or rebound tenderness EXTREMITIES: No LE edema, pedal pulses intact and equal bilaterally. No significant swelling of the right upper extremity. Right radial and ulnar pulse easily palpable. No cyanosis. No significant ecchymosis. No pain to palpation of the right shoulder. NEURO: A&OX3. Principal Diagnosis Nondisplaced oblique fracture distal aspect fifth metacarpal of right hand, Fracture of the right supracondylar region of the right elbow; Type 2 Diabetes Mellitus with mcc current use of insulin with hyperglycemia versus mild Diabetic Ketoacidosis; Helicobacter pylori (H. pylori); Tinnitus, chronic anticoagulation Discharge Exam Constitutional comfortable Eyes PERRL, conjunctivae normal, anicteric sclerae EOM intact bilaterally ENMT external ear and nose normal, oropharynx normal Neck trachea midline, no thyromegaly Respiratory normal respiratory effort, lungs clear to auscultation Cardiovascular Rate/Rhythm: regular rhythm Gastrointestinal (Abdomen) normal bowel sounds, soft, nontender, no hepatosplenomegaly Musculoskeletal Head/Neck/Chest: normocephalic and head atraumatic Extremities: + upper extremity abnormal to inspection (right arm in sling) Neurologic PERRL, EOMI, accommodation nl, no face palsy, no dysarthria Psychiatric A+Ox3, euthymic affect Discharge Data Allergies Allergy/AdvReac Type Severity Reaction Status Date / Time Sulfa (Sulfonamide Allergy Unknown GI SYMPTOMS Verified 05/28/19 10:50 Antibiotics) clarithromycin AdvReac Intermediate GI SYMPTOMS Verified 05/28/19 10:50 Iodinated Contrast Media AdvReac Unknown CONTRAST-"COULDN'T Unverified 05/28/19 10:50 FUNCTION" Consultations 05/28/19 13:17 ED Decision to Admit Stat 05/28/19 15:43 Consult Case Management - Discharge Planning Routine 05/28/19 16:03 Consult Orthopedic Surgery Routine Ordered Studies 05/28/19 11:13 CT cervical spine wo con Stat CT head/brain wo con Stat Hospital Course (1) Status post fall: Nondisplaced oblique fracture distal aspect fifth metacarpal and Fracture of the right supracondylar region of the right elbow -as per orthopedics; she is in a posterior splint, which is appropriate. This is not going to require surgery. She does have a sling and she should be wearing the sling -outpatient orthopedic follow up with Dr Lagos or his colleagues in 1 week for cast -PT/OT evaluations are continuing and case management applied for [facility] after hospital stay -consider possibility of Diabetic neuropathy as contributory to falls -05/31/19: Discharge to [facility] for physical rehabilitation Leave right arm splint in place until return to clinic follow-up in Orthopedics Patient should make appointment in 1 to 2 weeks of discharge with Dr. Jose Roberto Lagos or his colleagues at [facility] Address: [address] [place] [address], [place] [address] [place] PDMP was checked and patient does not have any active controlled substance medications prior to this hospital stay Because of the fractures: Nondisplaced oblique fracture distal aspect fifth metacarpal of right hand, Fracture of the right supracondylar region of the right elbow Patient may take acetaminophen 325 mg q6 hours as needed for fever or mild pain Patient may take tramadol 50 mg every 6 hours as needed for moderate to severe pain Patient will need to follow up with a primary care doctor at [facility] for medication adjustments or pain medications or diabetes medications if needed and follow up serum magnesium and INR labs 06/03/2019 10:20 AM Provider [facility] [place] Department [place], [place] 06/10/2019 11:50 AM Provider Shira Ray DO Department [facility] 06/22/2019 11:10 AM Provider Shira Ray DO Department [facility], [place] 07/28/2019 1:20 PM Provider Rachna Briseno MD Department Sleep Disorders, [facility] 08/09/2019 2:00 PM Provider MAITE CORBIN Department Radiology, [place] (2) Helicobacter pylori (H. pylori): Tinnitus -Patient reports that Tinnitus symptoms associated with metronidazole and tetracycline for H. pylori secondary to colonoscopy after bouts of diarr hea.Medications prescribed 05/04/2019 for 2-week course -possible that Tinnitus is a medication side effect and will hold metronidazole and tetracycline from medications (3) Diabetes: Type 2 diabetes mellitus with superintendent container terminal current use of insulin, mild diabetic ketoacidosis without coma -Blood sugar of 400 on ED presentation on 05/28/19 and elevated beta h ydroxybutyrate with normal anion gap suggestive of only mild diabetic ketoacidosis without coma -patient's blood sugars has been persistently above 300 despite IV fluids and subcutaneous insulin -given persistently elevated glucose above 300s, patient is not medically optimized fro hospital discharge. Patient agrees and patient pgraded from observation status to full admission status as of 05/29/19 -pharmacy glycemic consult continue to manage the patient with subcutaneous Lantus and aspart -as per pharmacy glycemic discharge recommendations: A1c 11.7%, given significantly elevated A1c would attempt to slowly titrate outpatient regimen and target a goal A1c of <8% for now and can work to a more agressive A1c goal. For discharge would start with following changes: increase home novolin 70/30 from 50 units daily and 65 units every night to 65 units BIDM (breakfast/dinner) metformin to goal dose of 1000 mg BIDM (4) Electrolyte imbalance: Hypomagnesemia -serum magnesium 1.6 on admission and patient received IV magnesium supplements -continue magnesium supplements as oral medication BID for now -serum magnesium is 2.1 on 05/30/19, serum magnesium 1.8 on 05/31/19 -Magnesium 400 mg BID for 10 more days on discharge (5) Anxiety and depression: -Continue trazodone, vitamin D, Wellbutrin SR, Lexapro (6) Hypertension: -continue losartan and metoprolol (7) CAD (coronary artery disease): -History of PCI with bare-metal stent placement to LAD in 2018 -Continues on aspirin, clopidogrel, metoprolol (8) Chronic anticoagulation: Chronic anticoagulation History of Pulmonary embolism and History of Deep Vein Thrombosis in the distant past positive for MTHFR with elevated homocystine -patient recalls that last known blood clot was 2 years ago -coumadin use at home -patient admitted with subtherapeutic levels of INR 1.4 -because blood clots were from long time ago, there does not need to be urgent need of systemic anticoagulation, had DVT prophylaxis dosing of heparin s ubcutaneous q8 hours with daily coumadin until INR is 2 to 3 -on discharge: Continue home dose warfarin 5 mg every Thursday/Thursday/Thursday/Thursday/Thursday and warfarin 2.5 mg every Thursday and . goal INR is 2 to 3. (9) DVT prophylaxis: -on discharge Continue home dose warfarin 5 mg every Thursday/Thursday/Thursday/Thursday/Thursday and warfarin 2.5 mg every Thursday and . goal INR is 2 to 3. 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 pylori); Tinnitus, chronic anticoagulation Condition on Discharge: Good Activity: Per Instructions section Activity Comment: Limited use of right arm. Non-emergency contact: Primary Care Provider and Surgeon Call non-emergency contact if: you have any medication questions Follow-up/Referrals: Shira Ray DO [Primary Care Provider] - Jose Roberto Lagos MD [Physician] - (Follow-up in Orthopedic Clinic in 1-2 weeks.) Diet: Carb Consistent or DM2 Addtl Attending Provider Instructions: Discharge to [facility] for physical rehabilitation Leave right arm splint in place until return to clinic follow-up in Orthopedics Patient should make appointment in 1 to 2 weeks of discharge with Dr. Jose Roberto Lagos or his colleagues at [facility] Address: [address] [place] [address], [place], [place] [address] [place] PDMP was checked and patient does not have any active controlled substance medications prior to this hospital stay Because of the fractures: Nondisplaced oblique fracture distal aspect fifth metacarpal of right hand, Fracture of the right supracondylar region of the right elbow Patient may take acetaminophen 325 mg q6 hours as needed for fever or mild pain Patient may take tramadol 50 mg every 6 hours as needed for moderate to severe pain A1c 11.7%, given significantly elevated A1c would attempt to slowly titrate outpatient regimen and target a goal A1c of <8% for now and can work to a more agressive A1c goal. For discharge would start with following changes: increase home novolin 70/30 from 50 units daily and 65 units every night to 65 units BIDM (breakfast/dinner) Titrate metformin to goal dose of 1000 mg BIDM Magnesium 400 mg BID for 10 more days Continue home dose warfarin 5 mg every Thursday/Thursday/Thursday/Thursday/Thursday and warfarin 2.5 mg every Thursday and . goal INR is 2 to 3 Patient will need to follow up with a primary care doctor at [facility] for medication adjustments or pain medications or diabetes medications if needed and follow up serum magnesium and INR labs 06/03/2019 10:20 AM Provider [facility] [place] Department Pharmacy, [place] 06/10/2019 11:50 AM Provider Shira Ray DO Department Family Practice, [place] 06/22/2019 11:10 AM Provider Shira Ray [facility], [place] 07/28/2019 1:20 PM Provider Rachna Briseno MD Department Sleep Disorders, [facility] 08/09/2019 2:00 PM Provider MAITE CORBIN Department Radiology, [place] Pending Studies at Discharge: No Stand-Alone Forms: My [facility] Skilled Items Patient informed of condition?: Yes DNR: No Discharge Level of Care: Skilled Communicable Disease: No Discharge Prognosis: Stable Lines: None Urinary Catheter: No Medications and DC Order Prescriptions: New acetaminophen 325 mg tablet 325 mg PO Q6H PRN (Reason: fever or mild pain) 4 Days Qty: 16 RF: 0 tramadol 50 mg Tablet 50 mg PO Q6H PRN (Reason: moderate to severe pain) 4 Days Qty: 16 RF: 0 metformin 1,000 mg tablet 1,000 mg PO BID 30 Days Qty: 60 RF: 0 warfarin [Coumadin] 5 mg Tablet 5 mg PO SuMoWeFrSa@1600 30 Days Qty: 30 RF: 0 warfarin [Coumadin] 2.5 mg Tablet 2.5 mg PO TuTh@1600 30 Days Qty: 30 RF: 0 magnesium oxide 400 mg (241.3 mg magnesium) Tablet 400 mg PO BID 10 Days Qty: 20 RF: 0 Continued methocarbamol 500 mg Tablet 500 mg PO TID PRN (Reason: MUCLE SPASMS) RF: 0 isosorbide mononitrate 30 mg Tablet Extended Release 24 Hr 30 mg PO QAM RF: 0 clopidogrel [Plavix] 75 mg Tablet 75 mg PO DAILY RF: 0 aspirin [Aspir-81] 81 mg Tablet,Delayed Release (Dr/Ec) 81 mg PO DAILY RF: 0 tramadol 50 mg Tablet 50 mg PO Q6H PRN (Reason: Pain) RF: 0 pantoprazole [Protonix] 40 mg tablet,delayed release (DR/EC) 40 mg PO DAILY RF: 0 trazodone 150 mg Tablet 150 mg PO HS RF: 0 ergocalciferol (vitamin D2) [Vitamin D2] 50,000 unit capsule 50,000 unit PO WK RF: 0 amino acids Tablet 1 tab PO DAILY RF: 0 losartan 100 mg Tablet 100 mg PO DAILY RF: 0 fluticasone propionate [Flonase Allergy Relief] 50 mcg/actuation [place],Suspension 2 spray INTRANASAL DAILY PRN (Reason: SINUS CONGESTION) RF: 0 bupropion HCl 150 mg Tablet Extended Release 24 Hr 150 mg PO BID RF: 0 metoprolol tartrate 25 mg Tablet 25 mg PO BID RF: 0 atorvastatin [Lipitor] 80 mg Tablet 80 mg PO DAILY RF: 0 peppermint oil 50 mg Capsule,Delayed Release(Dr/Ec) 50 mg PO UD PRN (Reason: Diarrhea) RF: 0 Changed Novolin 70/30 U-100 Insulin 100 unit/mL (70-30) Suspension 65 unit SUBCUT BID 30 Days Qty: 40 RF: 0 Discontinued metformin 500 mg Tablet Extended Release 24hr 500 mg PO BID RF: 0 Novolin 70-30 FlexPen U-100 100 unit/mL (70-30) Insulin Pen 60 unit SUBCUT QPM RF: 0 tetracycline 500 mg capsule 500 mg PO QID RF: 0 metronidazole [Flagyl] 500 mg tablet 250 mg PO QID RF: 0 warfarin [Coumadin] 5 mg Tablet 5 mg PO UD RF: 0 Discharge Orders: Discharge Order (Routine); Ordered 05/31/19 Ordered By: Yung Munoz/Other Patient Handouts: Diabetes Plant 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
[2019-05-31] MEDS ORDERED: WARFARIN SOD 2.5 MG TAB PO SCH (16:00)
== END 2019-05-31 14:00 | DRG 562 ==
LOC: 2N 09:55 → ED 09:55 → 2N 15:25